=== PATIENT | female | born 1940 | race Caucasian/White ===

== ENCOUNTER → 2016-12-22 | Outpatient (CLI) | payer MEDICARE, OTHER | LOC: MW.CHRC 08:00 | CPT/HCPCS: 99214 ==

== ENCOUNTER → 2017-01-08 | Outpatient (CLI) | payer MEDICARE, OTHER | LOC: MW.CHIM 08:00 | CPT/HCPCS: 99204 ==

== ENCOUNTER → 2017-01-15 | Outpatient (CLI) | payer MEDICARE, OTHER | END | disposition home or self-care (01) | LOC: MW.CHOBGYN 15:58 | PROVIDERS: ATTEND Nurse Practitioner Women's Health | DX: R30.0 Dysuria (principal); L29.8 Other pruritus; N95.2 Postmenopausal atrophic vaginitis | CPT/HCPCS: 81001; 87480; 87510; 87660; G0463 ==

== ENCOUNTER → 2017-01-16 | Outpatient (CLI) | payer MEDICARE, OTHER ==
--- NOTE | 2017-02-12 20:02 | ECHO ---
The echocardiogram report can be seen in this patient's EMR in the Reports section. MYNOR
== END | disposition home or self-care (01) ==
LOC: MW.US 13:48
PROVIDERS: ATTEND Internal Medicine
DX: R00.2 Palpitations (principal); I08.1 Rheumatic disorders of both mitral and tricuspid valves
CPT/HCPCS: 93306

== ENCOUNTER → 2017-02-19 | Outpatient (CLI) | payer MEDICARE, OTHER | LOC: MW.CHIM 08:00 | PROVIDERS: ATTEND Internal Medicine | DX: R07.9 Chest pain, unspecified (principal); I47.1 Supraventricular tachycardia; I10 Essential (primary) hypertension; E78.5 Hyperlipidemia, unspecified | CPT/HCPCS: G0463 ==

== ENCOUNTER → 2017-03-27 | Outpatient (CLI) | payer MEDICARE, OTHER | LOC: MW.CHOBGYN 08:00 | PROVIDERS: ATTEND Nurse Practitioner Women's Health | DX: M19.049 Primary osteoarthritis, unspecified hand (principal); Z79.52 Long term (current) use of systemic steroids; M35.3 Polymyalgia rheumatica | CPT/HCPCS: 99214 ==

== ENCOUNTER → 2017-03-29 | Outpatient (CLI) | payer MEDICARE, OTHER ==
--- NOTE | 2017-04-02 13:39 | XA ---
Exam Date: 03/29/17 Patient's Age: 76 HEIGHT: 62.5 IN. WEIGHT: 186.0 lbs. INDICATIONS: Corticosteroids, currently menopausal, hypothyroid FRACTURES: TREATMENTS: Baby aspirin, levothyroxine, prednisone. ASSESSMENT: The BMD measured at Femur Neck Mean is 0.832 g/cm2 with a T-score of -1.5. This patient is considered osteopenic according to World Health Organization ( WHO) criteria. Bone density is between 10% and 25% below young normal. Fracture risk is moderate. Treatment is advised. The BMD measured at measured at Femur Troch Mean is 0.820 g/cm2 with a T-score of -0.3 is normal. Fracture risk is low. RESULTS: Site Region Age Classification T-Score BMD AP Spine L1-L4 77.9 Normal 0.8 1.296 g/cm2 Dual Femur Neck Mean 77.9 Osteopenia -1.5 0.832 g/cm2 Dual Femur Troch Mean 77.9 N/A -0.3 0.820 g/cm2 Dual Femur Total Mean 77.9 Normal -0.1 0.996 g/cm2 World Health Organization - Criteria for post-menopausal, women: Normal: T-Score at or above -1 SD Osteopenia: T-Score between -1 and -2.5 SD Osteoporosis: T-Score at or below -2.5 SD RECOMMENDATION: Pharmacologic treatment recommendations & Initiate pharmacologic treatment: - In those with hip or vertebral (clinical or asymptomatic) fractures - In those with T -scores <-2.5 at the femoral neck, total hip, or lumbar spine by DXA - In postmenopausal women and men age 50 and older with low bone mass (T-score between -1.0 and -2.5, osteopenia) at the femoral neck, total hip, or lumbar spine by DXA and a 10-year hip fracture probability >3 % or a 10-year major osteoporosis-related fracture probability >20% based on the [place]-adapted WHO absolute fracture risk model (Fracture Risk Algorithm (FRAX); www. NOF.org and www.shef.ac.uk/FRAX) FOLLOW UP: People with diagnosed cases of osteoporosis or at high risk for fracture should have regular bone mineral density tests. For patients eligible for Medicare, routine testing is allowed once every 2 years. The testing frequency can be increased to 1 year for patients who have rapidly progressing disease, those who are reviewing or discontinuing medial therapy to restore bone mass, or have additional risk factors. People with diagnosed cases of osteoporosis or osteopenia should be regularly tested for bone mineral density. For patient eligible for Medicare, routine testing is allowed once every 2 years. The testing frequency can be increased to 1 year for patients who have rapidly progressing disease, or for those who are receiving medial therapy to restore bone mass. [facility] -- MARIVEL Jones [phone] - FAX: [phone] MYNOR
== END ==
LOC: MW.DI 08:57
PROVIDERS: ATTEND Nurse Practitioner Women's Health
DX: Z51.81 Encounter for therapeutic drug level monitoring (principal); Z79.52 Long term (current) use of systemic steroids
CPT/HCPCS: 77080; 77080-26

== ENCOUNTER → 2017-04-10 | Outpatient (CLI) | payer MEDICARE, OTHER | LOC: MW.CHOBGYN 08:00 | PROVIDERS: ATTEND Nurse Practitioner Women's Health | DX: R53.83 Other fatigue (principal); M35.3 Polymyalgia rheumatica; M85.80 Other specified disorders of bone density and structure, unspecified site; Z79.52 Long term (current) use of systemic steroids | CPT/HCPCS: G0463 ==

== ENCOUNTER 2018-06-04 13:13 | Observation (INO) | payer MEDICARE, OTHER ==
--- NOTE | 2018-06-04 13:33 | EDM.PDOC ---
ED HPI GENERAL MEDICAL PROBLEM - General Chief Complaint: Respiratory Problem Stated Complaint: cough,chest pain Time Seen by Provider: 06/04/18 15:52 Source of Information: Reports: Patient History Limitations: Reports: No Limitations - History of Present Illness INITIAL COMMENTS - FREE TEXT/NARRATIVE: HISTORY AND PHYSICAL: History of present illness: [Echo is a 78-year-old female here for cough that started 3 days ago and chest pain that suddenly is worse today. She states that she thinks she has had a sinus infection for a few weeks and went to the dentist to make sure she wasn't having problems with a tooth instead but was assured her sinus pain wasn't related to her teeth. She states she does have a history of chronic sinus issues. However, she states that today she does feel more short of breath and the coughing has worsened to where she is now coughing up clear mucus. She also states she has been having worsening chest pain where it feels as if someone is sitting on her chest and the pain radiates to her back and both shoulders but does not radiate to jaw or left arm. She states she has had a recent PFT performed but is unsure of what the results were but does use an inhaler at home as needed. She denies fever, chills, ear pain, sore throat, eye drainage, syncope, diaphoresis, or lower extremity edema. Past medical history significant for hypertension, hypothyroidism, SVT, polymyaglia rheumatica. ] Review of systems: As per history of present illness and below otherwise all systems reviewed and negative. Past medical history: As per history of present illness and as reviewed below otherwise noncontributory. Surgical history: As per history of present illness and as reviewed below otherwise noncontributory. Social history: No reported history of drug or alcohol abuse. Family history: As per history of present illness and as reviewed below otherwise noncontributory. Physical exam: General: Patient is laying comfortably in exam room, patient breathing heavily but in no acute distress HEENT: Nasal turbinates were pale and boggy with clear drainage, mild pain to palpation of the right maxillary sinus. Atraumatic, normocephalic, pupils reactive, negative for conjunctival pallor or scleral icterus, mucous membranes moist, throat clear, neck supple, nontender, trachea midline. Lungs: Clear to auscultation, breath sounds equal bilaterally, chest nontender. Heart: S1S2, regular, negative for clicks, rubs. Abdomen: Soft, nondistended, nontender. Negative for masses or hepatosplenomegaly. Negative for costovertebral tenderness. Pelvis: Stable nontender. Genitourinary: Deferred. Rectal: Deferred. Extremities: Atraumatic, negative for cords or calf pain. Neurovascular unremarkable. Neuro: Awake, alert, oriented. Cranial nerves II through XII unremarkable. Cerebellum unremarkable. Motor and sensory unremarkable throughout. Exam nonfocal. Notes: Diagnostics: [CBC, CMP, D-dimer, Troponin CTA, CXR, EKG] Therapeutics: [Duoneb] Impression: [Chest pain] Plan: [Discussed with Dr. Howell, patient admitted for r/o ACS] Definitive disposition and diagnosis as appropriate pending reevaluation and review of above. chest pressure Pain Score (Numeric/FACES): 5 - Related Data Allergies Allergy/AdvReac Type Severity Reaction Status Date / Time No Known Allergies Allergy Verified 06/04/18 13:21 Home Meds: Home Meds Levothyroxine 75 mcg PO ACBREAKFAST 09/29/15 [History] Sertraline [Zoloft] 25 mg PO BEDTIME #30 tablet 12/18/16 [Rx] predniSONE [Prednisone] 1 mg PO DAILY 12/18/16 [History] Albuterol [Ventolin HFA] 1 - 2 puff INH Q4H PRN 06/04/18 [History] Hydrochlorothiazide 25 mg PO DAILY 06/04/18 [History] Potassium Chloride [Klor-Con 10] 10 meq PO DAILY 06/04/18 [History] Propranolol [Inderal] 20 mg PO TID 06/04/18 [History] Simvastatin [Zocor] 40 mg PO DAILY 06/04/18 [History] Past Medical History HEENT History: Reports: Allergic Rhinitis Other HEENT History: wears glasses Cardiovascular History: Reports: Arrhythmia, High Cholesterol Other Cardiovascular History: Occasional palpitations, 'do not know if it's nerves or what" Respiratory History: Reports: None Gastrointestinal History: Reports: None Other Gastrointestinal History: Indigestion, pain to back Genitourinary History: Reports: None Other Genitourinary History: Urgency at times, Recent discovery of abnormality on one of my kidneys [employer] History: Reports: Musculoskeletal History: Reports: None Neurological History: Reports: Other (See Below) Other Neuro History: Tremor Psychiatric History: Reports: None Other Psychiatric History: Get a little anxious on occasion Endocrine/Metabolic History: Reports: Hypothyroidism, Obesity/BMI 30+ Other Endocrine/Metabolic History: hypothyroidism Hematologic History: Reports: None Immunologic History: Reports: None Oncologic (Cancer) History: Reports: None Dermatologic History: Reports: None - Past Surgical History Head Surgeries/Procedures: Reports: None GI Surgical History: Reports: Cholecystectomy, Colonoscopy, Other (See Below) Other GI Surgeries/Procedures: bowel surgery Musculoskeletal Surgical History: Reports: Other (See Below) 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 ED EXAM, GENERAL - Physical Exam Exam: See Below (see dictation) Course - Vital Signs Last Recorded V/S: Last Vital Signs Temp 36.6 C 06/04/18 13:21 Pulse 78 06/04/18 15:26 Resp 18 06/04/18 15:26 BP 134/72 06/04/18 15:26 Pulse Ox 97 06/04/18 15:26 - Orders/Labs/Meds Orders: Active Orders 24 hr Category Date Time Status EKG Documentation Completion [RC] STAT Care 06/04/18 13:36 Active RT Aerosol Therapy [RC] ASDIRECTED Care 06/04/18 13:41 Active Sodium Chloride 0.9% [Normal Saline] 500 ml Med 06/04/18 14:45 Active IV STAT Sodium Chloride 0.9% [Saline Flush] Med 06/04/18 14:26 Active 10 ml FLUSH ASDIRECTED PRN Sodium Chloride 0.9% [Saline Flush] Med 06/04/18 14:26 Active 2.5 ml FLUSH ASDIRECTED PRN Saline Lock Insert [OM.PC] Stat Oth 06/04/18 14:26 Ordered Medication Orders Sodium Chloride (Normal Saline) 500 mls @ 999 mls/hr IV STAT MARYELLEN Last Admin: 06/04/18 15:01 Dose: 999 mls/hr Sodium Chloride (Saline Flush) 10 ml FLUSH ASDIRECTED PRN PRN Reason: Keep Vein Open Sodium Chloride (Saline Flush) 2.5 ml FLUSH ASDIRECTED PRN PRN Reason: Keep Vein Open Labs: Laboratory Tests 06/04/18 06/04/18 06/04/18 Range/Units 13:40 13:40 13:40 WBC 8.06 (4.0-11.0) K/uL RBC 4.11 L (4.30-5.90) M/uL Hgb 13.5 (12.0-16.0) g/dL Hct 40.3 (36.0-46.0) % MCV 98.1 H (80.0-98.0) fL MCH 32.8 H (27.0-32.0) pg MCHC 33.5 (31.0-37.0) g/dL RDW Std Deviation 44.0 (28.0-62.0) fl RDW Coeff of Tray 12 (11.0-15.0) % Plt Count 292 (150-400) K/uL MPV 9.60 (7.40-12.00) fL Neut % (Auto) 72.6 (48.0-80.0) % Lymph % (Auto) 12.5 L (16.0-40.0) % Scurry % (Auto) 5.7 (0.0-15.0) % Eos % (Auto) 9.1 H (0.0-7.0) % Baso % (Auto) 0.1 (0.0-1.5) % Neut # (Auto) 5.9 H (1.4-5.7) K/uL Lymph # (Auto) 1.0 (0.6-2.4) K/uL Scurry # (Auto) 0.5 (0.0-0.8) K/uL Eos # (Auto) 0.7 (0.0-0.7) K/uL Baso # (Auto) 0.0 (0.0-0.1) K/uL Nucleated RBC % 0.0 /100WBC Nucleated RBCs # 0 K/uL INR 0.96 D-Dimer, Quantitative (0.0-0.52) mg/LFEU Sodium 141 (136-145) mmol/L Potassium 3.2 L (3.5-5.1) mmol/L Chloride 104 (98-107) mmol/L Carbon Dioxide 25.4 (21.0-32.0) mmol/L BUN 20 H (7.0-18.0) mg/dL Creatinine 1.0 (0.6-1.0) mg/dL Est Cr Clr Drug Dosing 37.73 mL/min Estimated GFR (MDRD) 53.5 ml/min Glucose 152 H (74-106) mg/dL Calcium 9.0 (8.5-10.1) mg/dL Total Bilirubin 0.4 (0.2-1.0) mg/dL AST 17 (15-37) IU/L ALT 19 (14-63) IU/L Alkaline Phosphatase 83 (46-116) U/L Troponin I < 0.050 (0.000-0.056) ng/mL Total Protein 7.3 (6.4-8.2) g/dL Albumin 3.7 (3.4-5.0) g/dL Globulin 3.6 H (2.0-3.5) g/dL Albumin/Globulin Ratio 1.0 L (1.3-2.8) 06/04/18 Range/Units 13:40 WBC (4.0-11.0) K/uL RBC (4.30-5.90) M/uL Hgb (12.0-16.0) g/dL Hct (36.0-46.0) % MCV (80.0-98.0) fL MCH (27.0-32.0) pg MCHC (31.0-37.0) g/dL RDW Std Deviation (28.0-62.0) fl RDW Coeff of Tray (11.0-15.0) % Plt Count (150-400) K/uL MPV (7.40-12.00) fL Neut % (Auto) (48.0-80.0) % Lymph % (Auto) (16.0-40.0) % Scurry % (Auto) (0.0-15.0) % Eos % (Auto) (0.0-7.0) % Baso % (Auto) (0.0-1.5) % Neut # (Auto) (1.4-5.7) K/uL Lymph # (Auto) (0.6-2.4) K/uL Scurry # (Auto) (0.0-0.8) K/uL Eos # (Auto) (0.0-0.7) K/uL Baso # (Auto) (0.0-0.1) K/uL Nucleated RBC % /100WBC Nucleated RBCs # K/uL INR D-Dimer, Quantitative 1.41 H (0.0-0.52) mg/LFEU Sodium (136-145) mmol/L Potassium (3.5-5.1) mmol/L Chloride (98-107) mmol/L Carbon Dioxide (21.0-32.0) mmol/L BUN (7.0-18.0) mg/dL Creatinine (0.6-1.0) mg/dL Est Cr Clr Drug Dosing mL/min Estimated GFR (MDRD) ml/min Glucose (74-106) mg/dL Calcium (8.5-10.1) mg/dL Total Bilirubin (0.2-1.0) mg/dL AST (15-37) IU/L ALT (14-63) IU/L Alkaline Phosphatase (46-116) U/L Troponin I (0.000-0.056) ng/mL Total Protein (6.4-8.2) g/dL Albumin (3.4-5.0) g/dL Globulin (2.0-3.5) g/dL Albumin/Globulin Ratio (1.3-2.8) Meds: Medications Generic Name Dose Route Start Last Admin Trade Name Freq PRN Reason Stop Dose Admin Sodium Chloride 500 mls @ 999 mls/hr 06/04/18 14:45 06/04/18 15:01 Normal Saline IV 999 mls/hr STAT MARYELLEN Administration Sodium Chloride 10 ml 06/04/18 14:26 Saline Flush FLUSH ASDIRECTED PRN Keep Vein Open Sodium Chloride 2.5 ml 06/04/18 14:26 Saline Flush FLUSH ASDIRECTED PRN Keep Vein Open Discontinued Medications Generic Name Dose Route Start Last Admin Trade Name Freq PRN Reason Stop Dose Admin Albuterol/Ipratropium 3 ml 06/04/18 13:41 06/04/18 14:01 Duoneb 3.0-0.5 Mg/3 Ml NEB 06/04/18 13:42 3 ml ONETIME ONE Administration Sodium Chloride 1,000 mls @ 999 mls/hr 06/04/18 14:37 Normal Saline IV 06/04/18 15:37 STAT ONE Iopamidol 50 ml 06/04/18 14:46 06/04/18 14:53 Isovue Multipack-370 (76%) IVPUSH 06/04/18 14:47 50 ml ONETIME STA Administration Departure - Departure Time of Disposition: 15:51 Disposition: Refer to Observation Clinical Impression: Chest pain Qualifiers: Chest pain type: chest pain due to myocardial ischemia - Discharge Information Referrals: Licha Jacobo NP [Primary Care Provider] - Forms: ED Department Discharge - My Orders Last 24 Hours: My Active Orders 06/04/18 13:36 EKG Documentation Completion [RC] STAT 06/04/18 13:41 RT Aerosol Therapy [RC] ASDIRECTED 06/04/18 14:26 Sodium Chloride 0.9% [Saline Flush] 10 ml FLUSH ASDIRECTED PRN Sodium Chloride 0.9% [Saline Flush] 2.5 ml FLUSH ASDIRECTED PRN Saline Lock Insert [OM.PC] Stat 06/04/18 14:45 Sodium Chloride 0.9% [Normal Saline] 500 ml IV STAT - Assessment/Plan Last 24 Hours: My Active Orders 06/04/18 13:36 EKG Documentation Completion [RC] STAT 06/04/18 13:41 RT Aerosol Therapy [RC] ASDIRECTED 06/04/18 14:26 Sodium Chloride 0.9% [Saline Flush] 10 ml FLUSH ASDIRECTED PRN Sodium Chloride 0.9% [Saline Flush] 2.5 ml FLUSH ASDIRECTED PRN Saline Lock Insert [OM.PC] Stat 06/04/18 14:45 Sodium Chloride 0.9% [Normal Saline] 500 ml IV STAT
[2018-06-04] MEDS ORDERED: Albuterol/Ipratropium 3.0-0.5 MG/3 ML Neb Soln NEB ONE (13:41)
[2018-06-04] MEDS ORDERED: Sodium Chloride 0.9% 2.5 ML Syringe FLUSH PRN (14:26)
[2018-06-04] MEDS ORDERED: Sodium Chloride 0.9% 10 ML Syringe FLUSH PRN (14:26)
[2018-06-04 14:32] LABS: CHLORIDE,CL 104 mmol/L (98-107); SODIUM,NA 141 mmol/L (136-145)
--- NOTE | 2018-06-04 14:35 | CR ---
EXAMINATION: Two-view chest (PA and Lateral views). HISTORY: Shortness of breath. FINDINGS: The trachea is midline. The cardiomediastinal silhouette is within normal limits. No pulmonary infilt rates, effusions or pneumothorax. Osseous structures appear unremarkable. IMPRESSION: No acute cardiopulmonary process.
[2018-06-04] MEDS ORDERED: Sodium Chloride 0.9% 1,000 ML IV ONE (14:37)
[2018-06-04] MEDS ORDERED: Sodium Chloride 0.9% 500 ML IV SCH (14:45)
[2018-06-04] MEDS ORDERED: Iopamidol 755 MG/ML 200 ML Multipack Bottle IVPUSH STA (14:46)
--- NOTE | 2018-06-04 15:21 | CT ---
EXAMINATION: CTA chest HISTORY: Elevated d-dimer COMPARISON: None TECHNIQUE: Axial CT images obtained through the chest following the administration of 50 mL of Isovue -370 in the right antecubital fossa. Coronal and sagittal reconstructions obtained. FINDINGS: The lungs are clear without focal consolidation. No pleural effusion or pneumothorax. The h eart is normal in size without pericardial effusion. The main and central pulmonary arteries are ibarra nt. The thoracic aorta is normal in caliber. There is no mediastinal, hilar, or axillary lymphadenopa thy. Central airways are clear. The visualized images of the upper abdomen appear unremarkable. Osseous structures are unremarkable. IMPRESSION: 1. No acute cardiopulmonary findings.
[2018-06-04] MEDS ORDERED: Ondansetron 4 MG/2 ML SDV IVPUSH ONE (15:54)
[2018-06-04] MEDS ORDERED: Albuterol HFA 18 Gm Inhaler INH PRN (19:11)
--- NOTE | 2018-06-04 19:19 | PCM.HP ---
H&P History of Present Illness - General Date of Service: 06/05/18 Admit Problem/Dx: Admission Diagnosis/Problem Admission Diagnosis/Problem Chest pain - History of Present Illness Initial Comments - Free Text/Narative: 78 yo female who presents with three day history of cough, sinus congestion, post nasal drip and chest pressure. She reports the chest pressure is intermittent and not associated with shortness of breath, diaphoresis or lightheadedness. In the ED her EKG and cardiac enzymes did not show any signs of ischemia. She had a normal CT angio of chest. chest pressure Pain Score (Numeric/FACES): 5 - Related Data Allergies/Adverse Reactions: Allergies Allergy/AdvReac Type Severity Reaction Status Date / Time No Known Allergies Allergy Verified 06/04/18 13:21 Home Medications: Home Meds Levothyroxine 75 mcg PO ACBREAKFAST 09/29/15 [History] Sertraline [Zoloft] 25 mg PO BEDTIME #30 tablet 12/18/16 [Rx] predniSONE [Prednisone] 1 mg PO DAILY 12/18/16 [History] Albuterol [Ventolin HFA] 1 - 2 puff INH Q4H PRN 06/04/18 [History] Hydrochlorothiazide 25 mg PO DAILY 06/04/18 [History] Potassium Chloride [Klor-Con 10] 10 meq PO DAILY 06/04/18 [History] Propranolol [Inderal] 20 mg PO TID 06/04/18 [History] Simvastatin [Zocor] 40 mg PO DAILY 06/04/18 [History] Fluticasone Propionate [Flonase] 0 gm NASBOTH DAILY bottle 06/05/18 [Rx] Past Medical History HEENT History: Reports: Allergic Rhinitis Other HEENT History: wears glasses Cardiovascular History: Reports: Arrhythmia, High Cholesterol Other Cardiovascular History: Occasional palpitations, 'do not know if it's nerves or what" Respiratory History: Reports: None Gastrointestinal History: Reports: None Other Gastrointestinal History: Indigestion, pain to back Genitourinary History: Reports: None Other Genitourinary History: Urgency at times, Recent discovery of abnormality on one of my kidneys 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: Musculoskeletal History: Reports: None Neurological History: Reports: Other (See Below) Other Neuro History: Tremor Psychiatric History: Reports: None Other Psychiatric History: Get a little anxious on occasion Endocrine/Metabolic History: Reports: Hypothyroidism, Obesity/BMI 30+ Other Endocrine/Metabolic History: hypothyroidism Hematologic History: Reports: None Immunologic History: Reports: None Oncologic (Cancer) History: Reports: None Dermatologic History: Reports: None - Past Surgical History Head Surgeries/Procedures: Reports: None GI Surgical History: Reports: Cholecystectomy, Colonoscopy, Other (See Below) Other GI Surgeries/Procedures: bowel surgery Musculoskeletal Surgical History: Reports: Other (See Below) 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 Exam - Vital Signs Vital Signs: Last Vital Signs Temp 35.7 C 06/04/18 18:40 Pulse 66 06/04/18 18:40 Resp 18 06/04/18 18:40 BP 129/70 06/04/18 18:40 Pulse Ox 92 L 06/04/18 18:40 Weight: 186.7 kg - Exam General: Alert, Oriented HEENT: Mucosa Moist & [place], Posterior Pharynx Clear Lungs: Clear to Auscultation, Normal Respiratory Effort Cardiovascular: Regular Rate, Regular Rhythm GI/Abdominal Exam: Normal Bowel Sounds, Soft, Non-Tender Extremities: Normal Range of Motion, Non-Tender, No Pedal Edema Skin: Warm, Dry, Intact Neurological: No: Focal Deficit - Patient Data Lab Results Last 24 hrs: Laboratory Results - last 24 hr 06/04/18 06/04/18 06/04/18 Range/Units 13:40 13:40 13:40 WBC 8.06 (4.0-11.0) K/uL RBC 4.11 L (4.30-5.90) M/uL Hgb 13.5 (12.0-16.0) g/dL Hct 40.3 (36.0-46.0) % MCV 98.1 H (80.0-98.0) fL MCH 32.8 H (27.0-32.0) pg MCHC 33.5 (31.0-37.0) g/dL RDW Std Deviation 44.0 (28.0-62.0) fl RDW Coeff of Tray 12 (11.0-15.0) % Plt Count 292 (150-400) K/uL MPV 9.60 (7.40-12.00) fL Neut % (Auto) 72.6 (48.0-80.0) % Lymph % (Auto) 12.5 L (16.0-40.0) % [place] % (Auto) 5.7 (0.0-15.0) % Eos % (Auto) 9.1 H (0.0-7.0) % Baso % (Auto) 0.1 (0.0-1.5) % Neut # (Auto) 5.9 H (1.4-5.7) K/uL Lymph # (Auto) 1.0 (0.6-2.4) K/uL [place] # (Auto) 0.5 (0.0-0.8) K/uL Eos # (Auto) 0.7 (0.0-0.7) K/uL Baso # (Auto) 0.0 (0.0-0.1) K/uL Nucleated RBC % 0.0 /100WBC Nucleated RBCs # 0 K/uL INR 0.96 D-Dimer, Quantitative (0.0-0.52) mg/LFEU Sodium 141 (136-145) mmol/L Potassium 3.2 L (3.5-5.1) mmol/L Chloride 104 (98-107) mmol/L Carbon Dioxide 25.4 (21.0-32.0) mmol/L BUN 20 H (7.0-18.0) mg/dL Creatinine 1.0 (0.6-1.0) mg/dL Est Cr Clr Drug Dosing 37.73 mL/min Estimated GFR (MDRD) 53.5 ml/min Glucose 152 H (74-106) mg/dL Calcium 9.0 (8.5-10.1) mg/dL Total Bilirubin 0.4 (0.2-1.0) mg/dL AST 17 (15-37) IU/L ALT 19 (14-63) IU/L Alkaline Phosphatase 83 (46-116) U/L Troponin I < 0.050 (0.000-0.056) ng/mL Total Protein 7.3 (6.4-8.2) g/dL Albumin 3.7 (3.4-5.0) g/dL Globulin 3.6 H (2.0-3.5) g/dL Albumin/Globulin Ratio 1.0 L (1.3-2.8) 06/04/18 Range/Units 13:40 WBC (4.0-11.0) K/uL RBC (4.30-5.90) M/uL Hgb (12.0-16.0) g/dL Hct (36.0-46.0) % MCV (80.0-98.0) fL MCH (27.0-32.0) pg MCHC (31.0-37.0) g/dL RDW Std Deviation (28.0-62.0) fl RDW Coeff of Tray (11.0-15.0) % Plt Count (150-400) K/uL MPV (7.40-12.00) fL Neut % (Auto) (48.0-80.0) % Lymph % (Auto) (16.0-40.0) % [place] % (Auto) (0.0-15.0) % Eos % (Auto) (0.0-7.0) % Baso % (Auto) (0.0-1.5) % Neut # (Auto) (1.4-5.7) K/uL Lymph # (Auto) (0.6-2.4) K/uL [place] # (Auto) (0.0-0.8) K/uL Eos # (Auto) (0.0-0.7) K/uL Baso # (Auto) (0.0-0.1) K/uL Nucleated RBC % /100WBC Nucleated RBCs # K/uL INR D-Dimer, Quantitative 1.41 H (0.0-0.52) mg/LFEU Sodium (136-145) mmol/L Potassium (3.5-5.1) mmol/L Chloride (98-107) mmol/L Carbon Dioxide (21.0-32.0) mmol/L BUN (7.0-18.0) mg/dL Creatinine (0.6-1.0) mg/dL Est Cr Clr Drug Dosing mL/min Estimated GFR (MDRD) ml/min Glucose (74-106) mg/dL Calcium (8.5-10.1) mg/dL Total Bilirubin (0.2-1.0) mg/dL AST (15-37) IU/L ALT (14-63) IU/L Alkaline Phosphatase (46-116) U/L Troponin I (0.000-0.056) ng/mL Total Protein (6.4-8.2) g/dL Albumin (3.4-5.0) g/dL Globulin (2.0-3.5) g/dL Albumin/Globulin Ratio (1.3-2.8) Result Diagrams: 06/04/18 13:40 06/04/18 13:40 Problem List Initiated/Reviewed/Updated: Yes Orders Last 24hrs: Active Orders 24 hr Category Date Time Status Admission Status [Patient Status] [ADT] Stat ADT 06/04/18 15:53 Active EKG Documentation Completion [RC] STAT Care 06/04/18 13:36 Active RT Aerosol Therapy [RC] ASDIRECTED Care 06/04/18 13:41 Active RT Aerosol Therapy [RC] ASDIRECTED Care 06/04/18 19:10 Active TROPONIN I [CHEM] Q6H Lab 06/04/18 20:00 Ordered TROPONIN I [CHEM] Q6H Lab 06/05/18 02:00 Ordered Albuterol [Ventolin HFA] Med 06/04/18 19:11 Ordered DOSE gm INH Q4H PRN Albuterol/Ipratropium [DuoNeb 3.0-0.5 MG/3 ML] Med 06/05/18 00:00 Ordered 3 ml NEB Q6HRRT Fluticasone Propionate [Flonase] Med 06/04/18 19:15 Ordered 1 gm NASBOTH DAILY Hydrochlorothiazide Med 06/05/18 09:00 Ordered 25 mg PO DAILY Levothyroxine Med 06/05/18 07:30 Ordered 75 mcg PO ACBREAKFAST Propranolol [Inderal] Med 06/04/18 22:00 Ordered 20 mg PO TID Sertraline [Zoloft] Med 06/04/18 21:00 Ordered 25 mg PO BEDTIME Simvastatin [Zocor] Med 06/05/18 09:00 Ordered 40 mg PO DAILY Sodium Chloride 0.9% [Normal Saline] 500 ml Med 06/04/18 14:45 Active IV STAT Sodium Chloride 0.9% [Saline Flush] Med 06/04/18 14:26 Active 10 ml FLUSH ASDIRECTED PRN Sodium Chloride 0.9% [Saline Flush] Med 06/04/18 14:26 Active 2.5 ml FLUSH ASDIRECTED PRN predniSONE Med 06/05/18 09:00 Ordered 1 mg PO DAILY Saline Lock Insert [OM.PC] Stat Oth 06/04/18 14:26 Ordered Medication Orders Albuterol (Ventolin Hfa) gm INH Q4H PRN PRN Reason: Wheezing Albuterol/Ipratropium (Duoneb 3.0-0.5 Mg/3 Ml) 3 ml NEB Q6HRRT MARYELLEN Fluticasone Propionate (Flonase) 1 gm NASBOTH DAILY MARYELLEN Hydrochlorothiazide (Hydrochlorothiazide) 25 mg PO DAILY MARYELLEN Sodium Chloride (Normal Saline) 500 mls @ 999 mls/hr IV STAT MARYELLEN Last Admin: 06/04/18 15:01 Dose: 999 mls/hr Levothyroxine Sodium (Levothyroxine) 75 mcg PO ACBREAKFAST MARYELLEN Prednisone (Prednisone) 1 mg PO DAILY MARYELLEN Propranolol HCl (Inderal) 20 mg PO TID MARYELLEN Sertraline HCl (Zoloft) 25 mg PO BEDTIME MARYELLEN Simvastatin (Zocor) 40 mg PO DAILY MARYELLEN Sodium Chloride (Saline Flush) 10 ml FLUSH ASDIRECTED PRN PRN Reason: Keep Vein Open Sodium Chloride (Saline Flush) 2.5 ml FLUSH ASDIRECTED PRN PRN Reason: Keep Vein Open Assessment/Plan Comment:: 78 yo female admitted with chest pain. She was monitored overnight and ruled out for acute coronary syndrome with serial negative cardiac enzymes. For her acute bronchitis, she was treated with duonebs, and flonase with improvement in her symptoms. She was discharged home to have follow up with [facility].
[2018-06-04] MEDS ORDERED: Sertraline 25 MG Tab PO SCH (21:00)
[2018-06-04] MEDS: Fluticasone Propionate Nasal Spray 16 GM Bottle NASBOTH SCH (21:18)
[2018-06-04] MEDS: Propranolol 20 MG Tab PO SCH (21:18)
[2018-06-04] MEDS ORDERED: Acetaminophen 325 MG Tab PO PRN (22:12)
[2018-06-05] MEDS: Albuterol/Ipratropium 3.0-0.5 MG/3 ML Neb Soln NEB SCH ×2 (00:47→06:22)
[2018-06-05] MEDS: Propranolol 20 MG Tab PO SCH (06:34)
[2018-06-05] MEDS ORDERED: Albuterol 8 GM Inhaler INH PRN (07:30)
[2018-06-05] MEDS ORDERED: Levothyroxine 75 MCG Tab PO SCH (07:30)
[2018-06-05 07:43] VITALS: BP 106/58
[2018-06-05] MEDS: Fluticasone Propionate Nasal Spray 16 GM Bottle NASBOTH SCH (08:33)
[2018-06-05] MEDS ORDERED: predniSONE 1 MG Tab PO SCH (09:00)
[2018-06-05] MEDS ORDERED: Simvastatin 40 MG Tab PO SCH (09:00)
[2018-06-05] MEDS ORDERED: Hydrochlorothiazide 25 MG Tab PO SCH (09:00)
== END 2018-06-05 09:40 | disposition home or self-care (01) ==
LOC: MW.ED 13:13 → MW.MS 16:05
PROVIDERS: ADMIT Internal Medicine; ATTEND Internal Medicine
DX: R07.9 Chest pain, unspecified (principal); J20.9 Acute bronchitis, unspecified; I10 Essential (primary) hypertension; E66.9 Obesity, unspecified; E78.00 Pure hypercholesterolemia, unspecified; E03.9 Hypothyroidism, unspecified; I49.9 Cardiac arrhythmia, unspecified; Z79.899 Other long term (current) drug therapy
CPT/HCPCS: 36415; 71046; 71275; 80053; 84484; 85025; 85379; 85610; 93005; 94640; 96374; 99285; A9270; G0378; J2405; J7040; J7620; Q9967

== ENCOUNTER 2019-08-11 09:31 | Observation (INO) | payer MEDICARE, OTHER ==
[2019-08-11] MEDS ORDERED: Sodium Chloride 0.9% 1,000 ML IV ONE (09:36)
[2019-08-11] MEDS ORDERED: Ondansetron 4 MG/2 ML SDV IVPUSH ONE (09:37)
--- NOTE | 2019-08-11 09:40 | EDM.PDOC ---
ED HPI GENERAL MEDICAL PROBLEM - General Chief Complaint: General Stated Complaint: EMS ARRIVAL/ DIZZINESS,NAUSEA Time Seen by Provider: 08/11/19 09:36 Source of Information: Reports: Patient History Limitations: Reports: No Limitations - History of Present Illness INITIAL COMMENTS - FREE TEXT/NARRATIVE: HISTORY AND PHYSICAL: History of present illness: Patient is an 79-year-old female who presents to the emergency room by EMS with complaints of dizziness, nausea and diarrhea 3 days. Patient does live in an assisted living facility and does have persons check on her routinely. EMS was called today as she felt weak while on the toilet and stated she was too dizzy to walk. States dizziness is bothersome with head movement or ambulation. States she is not dizzy with resting or lying still. Recently she has been treated for low vitamin D, states the supplements she's been taking has been causing some of her diarrhea. Patient denies any fever, chills, headache, change in vision, syncope or near syncope. Denies any chest pain, back pain, shortness of breath or cough. Denies any abdominal pain, constipation or dysuria. Has not noted any blood in urine or stool. Patient has been eating and drinking appropriately. PMH of arrhythmia and hypothyroidism. Review of systems: As per history of present illness and below otherwise all systems reviewed and negative. Past medical history: As per history of present illness and as reviewed below otherwise noncontributory. Surgical history: As per history of present illness and as reviewed below otherwise noncontributory. Social history: See social history for further information Family history: As per history of present illness and as reviewed below otherwise noncontributory. Physical exam: General: Well-developed and well-nourished 79-year-old female. Alert and oriented. Prefers to rest with her eyes closed during physical examination. HEENT: Atraumatic, normocephalic, pupils equal and reactive bilaterally, negative for conjunctival pallor or scleral icterus, mucous membranes moist, TMs normal bilaterally, throat clear, neck supple, nontender, trachea midline. No drooling or trismus noted. No meningeal signs. No hot potato voice noted. Lungs: Clear to auscultation, breath sounds equal bilaterally, chest nontender. Heart: S1S2, regular rate and rhythm without overt murmur Abdomen: Soft, nondistended, nontender. Negative for masses or hepatosplenomegaly. Negative for costovertebral tenderness. Pelvis: Stable nontender. Skin: Intact, warm, dry. No lesions or rashes noted. Extremities: Atraumatic, moves all extremities per self without difficulty or deficits, negative for cords or calf pain. Neurovascular unremarkable. Neuro: Awake, alert, oriented. Cranial nerves II through XII unremarkable. Cerebellum unremarkable. Motor and sensory unremarkable throughout. Exam nonfocal. Notes: Imaging is unremarkable. Lab work does show a slight UTI. Patient states she does feel somewhat better after the IV fluids. Patient is bradycardic with a heart rate of 49 and 53, previous EKGs show normal sinus rhythm with a rate of 70's. She states she does have a history of a low pulse rate but does not recall how "low around". Dr. Howell was consulted on this case. Will admit patient to telemetry. Patient and family members at bedside are agreeable to plan of care. Diagnostics: CBC, CMP, UA, troponin, EKG, head CT, one view chest Therapeutics: NS 100 MLS/hour, Rocephin Impression: Dehydration UTI Dizziness Bradycardia Plan: Observation admission with telemetry Definitive disposition and diagnosis as appropriate pending reevaluation and review of above. - Related Data Allergies Allergy/AdvReac Type Severity Reaction Status Date / Time No Known Allergies Allergy Verified 08/11/19 09:40 Home Meds: Home Meds Levothyroxine 75 mcg PO ACBREAKFAST 09/29/15 [History] Sertraline [Zoloft] 25 mg PO BEDTIME #30 tablet 12/18/16 [Rx] predniSONE [Prednisone] 1 mg PO DAILY 12/18/16 [History] Albuterol [Ventolin HFA] 1 - 2 puff INH Q4H PRN 06/04/18 [History] Potassium Chloride [Klor-Con 10] 10 meq PO DAILY 06/04/18 [History] Propranolol [Inderal] 20 mg PO TID 06/04/18 [History] Simvastatin [Zocor] 40 mg PO DAILY 06/04/18 [History] hydroCHLOROthiazide [Hydrochlorothiazide] 25 mg PO DAILY 06/04/18 [History] Fluticasone Propionate [Flonase] 0 gm NASBOTH DAILY bottle 06/05/18 [Rx] Past Medical History HEENT History: Reports: Allergic Rhinitis Other HEENT History: wears glasses Cardiovascular History: Reports: Arrhythmia, High Cholesterol Other Cardiovascular History: Occasional palpitations, 'do not know if it's nerves or what" Respiratory History: Reports: None Gastrointestinal History: Reports: None Other Gastrointestinal History: Indigestion, pain to back Genitourinary History: Reports: None Other Genitourinary History: Urgency at times, Recent discovery of abnormality on one of my kidneys 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: Musculoskeletal History: Reports: None Neurological History: Reports: Other (See Below) Other Neuro History: Tremor Psychiatric History: Reports: None Other Psychiatric History: Get a little anxious on occasion Endocrine/Metabolic History: Reports: Hypothyroidism, Obesity/BMI 30+ Other Endocrine/Metabolic History: hypothyroidism Hematologic History: Reports: None Immunologic History: Reports: None Oncologic (Cancer) History: Reports: None Dermatologic History: Reports: None - Past Surgical History Head Surgeries/Procedures: Reports: None GI Surgical History: Reports: Cholecystectomy, Colonoscopy, Other (See Below) Other GI Surgeries/Procedures: bowel surgery Musculoskeletal Surgical History: Reports: Other (See Below) 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 ED EXAM, GENERAL - Physical Exam Exam: See Below (See dictation) Course - Vital Signs Last Recorded V/S: Last Vital Signs Temp 95.3 F L 08/11/19 09:37 Pulse 51 L 08/11/19 11:36 Resp 18 08/11/19 11:36 BP 104/59 L 08/11/19 11:36 Pulse Ox 97 08/11/19 11:36 - Orders/Labs/Meds Orders: Active Orders 24 hr Category Date Time Status EKG Documentation Completion [RC] STAT Care 08/11/19 09:36 Active CULTURE URINE [RM] Stat Lab 08/11/19 11:49 Received Sodium Chloride 0.9% [Normal Saline] 1,000 ml Med 08/11/19 09:36 Active IV STAT Medication Orders Sodium Chloride (Normal Saline) 1,000 mls @ 100 mls/hr IV STAT ONE Stop: 08/11/19 19:35 Last Admin: 08/11/19 09:44 Dose: 100 mls/hr Labs: Laboratory Tests 08/11/19 08/11/19 08/11/19 Range/Units 09:57 09:57 11:49 WBC 7.54 (4.0-11.0) K/uL RBC 3.88 L (4.30-5.90) M/uL Hgb 12.9 (12.0-16.0) g/dL Hct 40.2 (36.0-46.0) % MCV 103.6 H (80.0-98.0) fL MCH 33.2 H (27.0-32.0) pg MCHC 32.1 (31.0-37.0) g/dL RDW Std Deviation 48.2 (28.0-62.0) fl RDW Coeff of Tray 13 (11.0-15.0) % Plt Count 261 (150-400) K/uL MPV 9.40 (7.40-12.00) fL Neut % (Auto) 64.3 (48.0-80.0) % Lymph % (Auto) 24.0 (16.0-40.0) % [place] % (Auto) 8.9 (0.0-15.0) % Eos % (Auto) 2.5 (0.0-7.0) % Baso % (Auto) 0.3 (0.0-1.5) % Neut # (Auto) 4.9 (1.4-5.7) K/uL Lymph # (Auto) 1.8 (0.6-2.4) K/uL [place] # (Auto) 0.7 (0.0-0.8) K/uL Eos # (Auto) 0.2 (0.0-0.7) K/uL Baso # (Auto) 0.0 (0.0-0.1) K/uL Nucleated RBC % 0.0 /100WBC Nucleated RBCs # 0 K/uL Sodium 142 (136-145) mmol/L Potassium 3.3 L (3.5-5.1) mmol/L Chloride 105 (98-107) mmol/L Carbon Dioxide 25.8 (21.0-32.0) mmol/L BUN 24 H (7.0-18.0) mg/dL Creatinine 1.0 (0.6-1.0) mg/dL Est Cr Clr Drug Dosing 35.49 mL/min Estimated GFR (MDRD) 53.3 ml/min Glucose 102 (74-106) mg/dL Calcium 9.3 (8.5-10.1) mg/dL Total Bilirubin 0.6 (0.2-1.0) mg/dL AST 12 L (15-37) IU/L ALT 14 (14-63) IU/L Alkaline Phosphatase 60 (46-116) U/L Troponin I < 0.050 (0.000-0.056) ng/mL Total Protein 6.7 (6.4-8.2) g/dL Albumin 3.5 (3.4-5.0) g/dL Globulin 3.2 (2.6-4.0) g/dL Albumin/Globulin Ratio 1.1 (0.9-1.6) Urine Color YELLOW Urine Appearance SLT CLOUDY Urine pH 7.0 (5.0-8.0) Ur Specific [place] 1.020 (1.001-1.035) Urine Protein NEGATIVE (NEGATIVE) mg/dL Urine Glucose (UA) NEGATIVE (NEGATIVE) mg/dL Urine Ketones NEGATIVE (NEGATIVE) mg/dL Urine Occult Blood NEGATIVE (NEGATIVE) Urine Nitrite NEGATIVE (NEGATIVE) Urine Bilirubin NEGATIVE (NEGATIVE) Urine Urobilinogen 1.0 (<2.0) EU/dL Ur Leukocyte Esterase SMALL H (NEGATIVE) Urine RBC RARE (0-2/HPF) Urine WBC 2-4 (0-5/HPF) Ur Epithelial Cells MODERATE (NONE-FEW) Amorphous Sediment LIGHT (NEGATIVE) Urine Bacteria 1+ H (NEGATIVE) Hyaline Casts 0-1 (0-2/LPF) Urine Mucus MODERATE (NONE-MOD) Meds: Medications Generic Name Dose Route Start Last Admin Trade Name Freq PRN Reason Stop Dose Admin Sodium Chloride 1,000 mls @ 100 mls/hr 08/11/19 09:36 08/11/19 09:44 Normal Saline IV 08/11/19 19:35 100 mls/hr STAT ONE Administration Discontinued Medications Generic Name Dose Route Start Last Admin Trade Name Freq PRN Reason Stop Dose Admin Ondansetron HCl 4 mg 08/11/19 09:37 08/11/19 11:42 Zofran IVPUSH 08/11/19 09:38 Not Given ONETIME ONE Departure - Departure Time of Disposition: 12:21 Disposition: Refer to Observation Clinical Impression: Dehydration, Dizziness, Bradycardia UTI (urinary tract infection) Qualifiers: Urinary tract infection type: acute cystitis Hematuria presence: without hematuria Qualified Code(s): N30.00 - Acute cystitis without hematuria - Discharge Information Referrals: PCP,Unknown [Primary Care Provider] - Forms: ED Department Discharge - My Orders Last 24 Hours: My Active Orders 08/11/19 09:36 EKG Documentation Completion [RC] STAT Sodium Chloride 0.9% [Normal Saline] 1,000 ml IV STAT 08/11/19 11:49 CULTURE URINE [RM] Stat - Assessment/Plan Last 24 Hours: My Active Orders 08/11/19 09:36 EKG Documentation Completion [RC] STAT Sodium Chloride 0.9% [Normal Saline] 1,000 ml IV STAT 08/11/19 11:49 CULTURE URINE [RM] Stat
[2019-08-11 10:32] LABS: BLOOD UREA NITROGEN,BUN 24 mg/dL (7.0-18.0); CARBON DIOXIDE,CO2 25.8 mmol/L (21.0-32.0); CHLORIDE,CL 105 mmol/L (98-107); GLUCOSE RANDOM 102 mg/dL (74-106); POTASSIUM,K 3.3 mmol/L (3.5-5.1); SODIUM,NA 142 mmol/L (136-145)
--- NOTE | 2019-08-11 10:57 | CT ---
HISTORY: Dizziness. TECHNIQUE: Noncontrast head CT. COMPARISON: No prior. FINDINGS: There is no acute intracranial hemorrhage or acute ischemic infarct. Periventricular white matter low attenuation on the right is nonspecific but may reflect sequelae of chronic small vessel ischemic changes. There is no mass effect or midline shift. No hydrocephalus. No extra-axial collection or hematoma. No acute loss of matias-white differentiation. The mastoid air cells are clear. Paranasal sinuses are clear. There is no acute skull fracture. IMPRESSION: 1. No acute intracranial disease. 2. Periventricular white matter low attenuation on the right is nonspecific but may reflect sequelae of chronic small vessel ischemic changes in a patient this age. Dictated by George Abebe MD @ 08/11/2019 10:56:20 AM Please note that all CT scans at this facility use dose modulation, iterative reconstruction, and/or weight-based dosing when appropriate to reduce radiation dose to as low as reasonably achievable. Dictated by: George Abebe MD @ 08/11/2019 10:56:25 (Electronically Signed)
--- NOTE | 2019-08-11 11:08 | CR ---
HISTORY: Dizziness. TECHNIQUE: One view of the chest. COMPARISON: 06/04/2018. FINDINGS: Cardiac size within normal limits. There is no consolidation or pulmonary edema. No pneumothorax or pleural effusion. No acute bony abnormality. IMPRESSION: No acute disease. Dictated by George Abebe MD @ 08/11/2019 11:06:12 AM Dictated by: George Abebe MD @ 08/11/2019 11:06:18 (Electronically Signed)
[2019-08-11] MEDS ORDERED: cefTRIAXone 1 GM in Premix Bag 1 BAG IV ONE (12:23)
--- NOTE | 2019-08-11 13:18 | PCM.HP.2 ---
H&P History of Present Illness - General Date of Service: 08/11/19 Admit Problem/Dx: Admission Diagnosis/Problem Admission Diagnosis/Problem UTI (urinary tract infection), uncomplicated - History of Present Illness Initial Comments - Free Text/Narative: The patient is a 79 year old female who presents today with 1 month hx of diarrhea and one day history of "weird episode". The weird episode happened this morning, she got up from bed, felt like the room was spinning, became very hot, went to the bathroom and fell to her knees. Denied head trauma or loss of consciousness. Denies any fever/chills, chest pain, shortness of breath, nausea /vomiting, or abdominal pain. Does report nonbloody, watery diarrhea for the past month 3-4 times a day. No recent antibiotic use, has eaten out in the community ([employer] and [employer]) also she lives at [facility], they prepare her meal. She reports several of the other residents have also developed diarrhea. She also endorses increased frequency and burning with urination. In the ER, work up showed no white count, no anemia, slight hypokalemia of 3.3, negative troponin. UA was positive for leuk esterase, bacteria, and WBC. Head CT showed no acute intracranial process but showed chronic small vessel ischemia disease. CXR showed no acute cardiopulmonary process. EKG showed bradycardia with HR of [address] changes. Patient is on propranolol 20 mg after episode of SVT last year that required hospitalization. She was also hypotensive in the ER with BP of 99/54 that slightly improved to 104/59 with 1 L of IVF. In the ER she received a dose of Rocephin. - Related Data Allergies/Adverse Reactions: Allergies Allergy/AdvReac Type Severity Reaction Status Date / Time No Known Allergies Allergy Verified 08/11/19 13:21 Home Medications: Home Meds Levothyroxine 75 mcg PO ACBREAKFAST 09/29/15 [History] Sertraline [Zoloft] 25 mg PO BEDTIME #30 tablet 12/18/16 [Rx] predniSONE [Prednisone] 1 mg PO DAILY 12/18/16 [History] Albuterol [Ventolin HFA] 1 - 2 puff INH Q4H PRN 06/04/18 [History] Potassium Chloride [Klor-Con 10] 10 meq PO DAILY 06/04/18 [History] Propranolol [Inderal] 20 mg PO TID 06/04/18 [History] Simvastatin [Zocor] 40 mg PO DAILY 06/04/18 [History] hydroCHLOROthiazide [Hydrochlorothiazide] 25 mg PO DAILY 06/04/18 [History] Fluticasone Propionate [Flonase] 0 gm NASBOTH DAILY bottle 06/05/18 [Rx] Past Medical History HEENT History: Reports: Allergic Rhinitis Other HEENT History: wears glasses Cardiovascular History: Reports: Arrhythmia, High Cholesterol Other Cardiovascular History: Occasional palpitations, 'do not know if it's nerves or what" Respiratory History: Reports: None Gastrointestinal History: Reports: None Other Gastrointestinal History: Indigestion, pain to back Genitourinary History: Reports: None Other Genitourinary History: Urgency at times, Recent discovery of abnormality on one of my kidneys [employer] History: Reports: Musculoskeletal History: Reports: None Neurological History: Reports: Other (See Below) Other Neuro History: Tremor Psychiatric History: Reports: None Other Psychiatric History: Get a little anxious on occasion Endocrine/Metabolic History: Reports: Hypothyroidism, Obesity/BMI 30+ Other Endocrine/Metabolic History: hypothyroidism Hematologic History: Reports: None Immunologic History: Reports: None Oncologic (Cancer) History: Reports: None Dermatologic History: Reports: None - Past Surgical History Head Surgeries/Procedures: Reports: None GI Surgical History: Reports: Cholecystectomy, Colonoscopy, Other (See Below) Other GI Surgeries/Procedures: bowel surgery Musculoskeletal Surgical History: Reports: Other (See Below) 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 Denies: Fever, Chills HEENT: Reports: No Symptoms Pulmonary: Reports: No Symptoms Cardiovascular: Reports: No Symptoms Gastrointestinal: Reports: Diarrhea. Denies: Abdominal Pain, Nausea, Vomiting Genitourinary: Reports: Frequency, Burning Musculoskeletal: Reports: No Symptoms Skin: Reports: No Symptoms Psychiatric: Reports: No Symptoms Neurological: Reports: Dizziness. Denies: Syncope Hematologic/Lymphatic: Reports: No Symptoms Immunologic: Reports: No Symptoms Exam - Exam Exam: See Below - Vital Signs Vital Signs: Last Vital Signs Temp 95.3 F L 08/11/19 09:37 Pulse 51 L 08/11/19 11:36 Resp 18 08/11/19 11:36 BP 104/59 L 08/11/19 11:36 Pulse Ox 97 08/11/19 11:36 Weight: 86.183 kg - Exam General: Alert, Oriented, Cooperative HEENT: Conjunctiva Clear, EOMI, Mucosa Moist & Edwards, Posterior Pharynx Clear, Pupils Equal, Pupils Reactive Neck: Supple, Trachea Midline Lungs: Clear to Auscultation, Normal Respiratory Effort Cardiovascular: Regular Rhythm, Bradycardia GI/Abdominal Exam: Normal Bowel Sounds, Soft, Non-Tender, No Distention Extremities: No Pedal Edema Skin: Warm, Dry, Intact Neurological: Cranial Nerves Intact Neuro Extensive - Mental Status: Alert, Oriented x3 Psychiatric: Alert, Normal Affect, Normal Mood - Patient Data Lab Results Last 24 hrs: Laboratory Results - last 24 hr 08/11/19 08/11/19 08/11/19 Range/Units 09:57 09:57 11:49 WBC 7.54 (4.0-11.0) K/uL RBC 3.88 L (4.30-5.90) M/uL Hgb 12.9 (12.0-16.0) g/dL Hct 40.2 (36.0-46.0) % MCV 103.6 H (80.0-98.0) fL MCH 33.2 H (27.0-32.0) pg MCHC 32.1 (31.0-37.0) g/dL RDW Std Deviation 48.2 (28.0-62.0) fl RDW Coeff of Tray 13 (11.0-15.0) % Plt Count 261 (150-400) K/uL MPV 9.40 (7.40-12.00) fL Neut % (Auto) 64.3 (48.0-80.0) % Lymph % (Auto) 24.0 (16.0-40.0) % Garrett % (Auto) 8.9 (0.0-15.0) % Eos % (Auto) 2.5 (0.0-7.0) % Baso % (Auto) 0.3 (0.0-1.5) % Neut # (Auto) 4.9 (1.4-5.7) K/uL Lymph # (Auto) 1.8 (0.6-2.4) K/uL Garrett # (Auto) 0.7 (0.0-0.8) K/uL Eos # (Auto) 0.2 (0.0-0.7) K/uL Baso # (Auto) 0.0 (0.0-0.1) K/uL Nucleated RBC % 0.0 /100WBC Nucleated RBCs # 0 K/uL Sodium 142 (136-145) mmol/L Potassium 3.3 L (3.5-5.1) mmol/L Chloride 105 (98-107) mmol/L Carbon Dioxide 25.8 (21.0-32.0) mmol/L BUN 24 H (7.0-18.0) mg/dL Creatinine 1.0 (0.6-1.0) mg/dL Est Cr Clr Drug Dosing 35.49 mL/min Estimated GFR (MDRD) 53.3 ml/min Glucose 102 (74-106) mg/dL Calcium 9.3 (8.5-10.1) mg/dL Total Bilirubin 0.6 (0.2-1.0) mg/dL AST 12 L (15-37) IU/L ALT 14 (14-63) IU/L Alkaline Phosphatase 60 (46-116) U/L Troponin I < 0.050 (0.000-0.056) ng/mL Total Protein 6.7 (6.4-8.2) g/dL Albumin 3.5 (3.4-5.0) g/dL Globulin 3.2 (2.6-4.0) g/dL Albumin/Globulin Ratio 1.1 (0.9-1.6) Urine Color YELLOW Urine Appearance SLT CLOUDY Urine pH 7.0 (5.0-8.0) Ur Specific [place] 1.020 (1.001-1.035) Urine Protein NEGATIVE (NEGATIVE) mg/dL Urine Glucose (UA) NEGATIVE (NEGATIVE) mg/dL Urine Ketones NEGATIVE (NEGATIVE) mg/dL Urine Occult Blood NEGATIVE (NEGATIVE) Urine Nitrite NEGATIVE (NEGATIVE) Urine Bilirubin NEGATIVE (NEGATIVE) Urine Urobilinogen 1.0 (<2.0) EU/dL Ur Leukocyte Esterase SMALL H (NEGATIVE) Urine RBC RARE (0-2/HPF) Urine WBC 2-4 (0-5/HPF) Ur Epithelial Cells MODERATE (NONE-FEW) Amorphous Sediment LIGHT (NEGATIVE) Urine Bacteria 1+ H (NEGATIVE) Hyaline Casts 0-1 (0-2/LPF) Urine Mucus MODERATE (NONE-MOD) Result Diagrams: 08/11/19 09:57 08/11/19 09:57 Problem List Initiated/Reviewed/Updated: Yes Orders Last 24hrs: Active Orders 24 hr Category Date Time Status Admission Status [Patient Status] [ADT] Stat ADT 08/11/19 12:23 Active Cardiac Monitoring [RC] . DIRECTED Care 08/11/19 12:23 Active EKG Documentation Completion [RC] STAT Care 08/11/19 09:36 Active CULTURE URINE [RM] Stat Lab 08/11/19 11:49 Received Sodium Chloride 0.9% [Normal Saline] 1,000 ml Med 08/11/19 09:36 Active IV STAT Medication Orders Sodium Chloride (Normal Saline) 1,000 mls @ 100 mls/hr IV STAT ONE Stop: 08/11/19 19:35 Last Admin: 08/11/19 09:44 Dose: 100 mls/hr Assessment/Plan Comment:: 1. Admit for observation 2. Code status- DNR/DNI/no blood products 3. Vitals per routine 4. I/Os per routine 5. Diet- regular 6. DVT prophylaxis with lovenox 7. Diarrhea- will order stool studies 8. Dizziness secondary to bradycardia vs hypotension vs UTI- will discontinue propranolol, monitor on telemetry, obtain orthostatic vitals and place on IVF. 9. UTI- treat with Rocephin, urine culture pending 10. Hypokalemia- will replace with 40 mEq and recheck in the AM 11. Concern for MN- initial trop negative and EKG shows no ischemic changes but daughter worried about heart attack, patient has no past medical hx of MN- will trend troponin.
[2019-08-11] MEDS ORDERED: Ondansetron 4 MG/2 ML SDV IVPUSH PRN (13:41)
[2019-08-11] MEDS ORDERED: Potassium Chloride 20 MEQ Tab.ER PO ONE (13:41)
[2019-08-11] MEDS ORDERED: Acetaminophen 325 MG Tab PO PRN (13:41)
[2019-08-11] MEDS ORDERED: Enoxaparin 40 MG/0.4 ML Syringe SUBCUT SCH (13:45)
[2019-08-11] MEDS ORDERED: Fluticasone Propionate Nasal Spray 16 GM Bottle NASBOTH PRN (13:46)
[2019-08-11] MEDS ORDERED: Albuterol 8 GM Inhaler INH PRN (13:46)
[2019-08-11] MEDS: Sodium Chloride 0.9% 1,000 ML IV SCH ×2 (14:00→23:24)
[2019-08-11] MEDS: predniSONE 5 MG Tab PO SCH (20:54)
[2019-08-11] MEDS ORDERED: Sertraline 25 MG Tab PO SCH (21:00)
[2019-08-11] MEDS ORDERED: Simvastatin 40 MG Tab PO SCH (21:00)
[2019-08-12 07:12] LABS: BLOOD UREA NITROGEN,BUN 14 mg/dL (7.0-18.0); CARBON DIOXIDE,CO2 24.7 mmol/L (21.0-32.0); CHLORIDE,CL 109 mmol/L (98-107); GLUCOSE RANDOM 98 mg/dL (74-106); POTASSIUM,K 3.9 mmol/L (3.5-5.1); SODIUM,NA 143 mmol/L (136-145)
[2019-08-12] MEDS ORDERED: Levothyroxine 75 MCG Tab PO SCH (07:30)
--- NOTE | 2019-08-12 08:13 | PCM.DCSUM1 ---
<Florina Randhawa - Last Filed: 08/12/19 10:51> Discharge Summary - Hospital Course Free Text/Narrative:: Admission Date: 08/11/19 Discharge Date: 08/12/19 Admission Diagnosis: 1. Diarrhea 2. Dizziness secondary to bradycardia vs hypotension vs UTI 3. UTI 4. Hypokalemia 5. Concern about [place] Discharge Diagnosis: 1. Diarrhea- resolved 2. Dizziness secondary to bradycardia vs hypotension vs UTI- resolved 3. UTI 4. Hypokalemia- resolved 5. Concern about [place] Procedures: None Consults: None Hospital Course: The patient is a 79 year old female who presents today with 1 month hx of non bloody, watery diarrhea and one day history of "weird episode". The weird episode happened this morning, she got up from bed, felt like the room was spinning, became very hot, went to the bathroom and fell to her knees. Denied head trauma or loss of consciousness. She also endorses increased frequency and burning with urination. In the ER, work up showed no white count, no anemia, slight hypokalemia of 3.3, negative troponin. UA was positive for leuk esterase, bacteria, and WBC. Head CT showed no acute intracranial process but showed chronic small vessel ischemia disease. CXR showed no acute cardiopulmonary process. EKG showed bradycardia with HR of [address] changes. Patient is on propranolol 20 mg after episode of SVT last year that required hospitalization. She was also hypotensive in the ER with BP of 99/54 that slightly improved to 104/59 with 1 L of IVF. In the ER she received a dose of Rocephin. She was admitted to the medical surgical floor for observation. She was monitored on telemetry without any significant events. We tried to obtain stool studies but the patient did not have any diarrhea while admitted. She was able to offer a stool sample that was negative for Campylobacter and Cdiff, other stool studies were pending at time of discharge. For her dizziness , orthostatic vitals were obtained and were normal, she was also hypotensive. Her HCTZ and propranolol were held and her BP improved to 121/63. Her rate rate stayed in the high 50s to 80s. She had no further episodes of dizziness while admitted. She was found to have a UTI, treated with Rocephin, urine culture pending at time of discharge. She was found to be hypokalemia, her potassium was replaced and this resolved. Her daughter was concerned about [place], the patient denies chest pain and there were no ST changes on EKG, but we trended her troponins and they were all negative. By day of discharge the patient stated she felt better and wanted to return home. Disposition: Home Discharge Condition: vitals stable, tolerating oral diet, ambulating without difficulty, symptom improvement Discharge Instructions: regular diet as tolerated, activity as tolerated, take medications as prescribed. Symptoms to report to physician include fever/chills , chest pain, shortness of breath, abdominal pain, erythema, drainage/discharge , or not improving as expected. Hold HCTZ and propranolol, take blood pressure and heart rate daily and keep record. Bring record to outpatient follow up appt. Discharge Medications: Levothyroxine 75 mcg PO ACBREAKFAST Sertraline [Zoloft] 25 mg PO BEDTIME predniSONE [Prednisone] 2.5 mg PO BID Albuterol [Ventolin HFA] 1 - 2 puff INH Q4H PRN Potassium Chloride [Klor-Con 10] 10 meq PO DAILY Simvastatin [Zocor] 40 mg PO BEDTIME Cholecalciferol (Vitamin D3) [Vitamin D] 50,000 unit PO WEEKLY Fluticasone Propionate [Flonase] 1 inh NASBOTH DAILY PRN cephALEXin [Keflex] 500 mg PO BID 3 Days Follow-up: 1. PCP- Dr. Randhawa on 08/25/19 - Discharge Data Discharge Date: 08/12/19 Discharge Disposition: Home, Self-Care 01 Condition: Fair - Referral to Home Health Primary Care Physician: PCP Unknown - Discharge Plan Prescriptions/Med Rec: cephALEXin [Keflex] 500 mg PO BID 3 Days #6 cap Home Medications: Home Meds Levothyroxine 75 mcg PO ACBREAKFAST 09/29/15 [History] Sertraline [Zoloft] 25 mg PO BEDTIME #30 tablet 12/18/16 [Rx] predniSONE [Prednisone] 2.5 mg PO BID 12/18/16 [History] Albuterol [Ventolin HFA] 1 - 2 puff INH Q4H PRN 06/04/18 [History] Potassium Chloride [Klor-Con 10] 10 meq PO DAILY 06/04/18 [History] Simvastatin [Zocor] 40 mg PO BEDTIME 07/10/18 [History] Cholecalciferol (Vitamin D3) [Vitamin D] 50,000 unit PO WEEKLY 08/11/19 [History ] Fluticasone Propionate [Flonase] 1 inh NASBOTH DAILY PRN 08/11/19 [History] cephALEXin [Keflex] 500 mg PO BID 3 Days #6 cap 08/12/19 [Rx] Patient Handouts: Bradycardia, Adult, Urinary Tract Infection, Adult, Easy-to- Read, Dehydration, Adult, [id number], Cephalexin tablets or capsules, Dizziness Referrals: Florina Randhawa DO [Resident] - 08/25/19 10:15 am Eileen De La Garza [Ordering Only Provider] - - Discharge Summary/Plan Comment DC Time >30 min.: No - Patient Data Vitals - Most Recent: Last Vital Signs Temp 97.1 F 08/12/19 04:00 Pulse 62 08/12/19 04:00 Resp 16 08/12/19 04:00 BP 121/63 08/12/19 04:00 Pulse Ox 97 08/12/19 04:00 Orthostatic Blood Pressure [ 154/79 Standing] Orthostatic Blood Pressure [ 132/62 Sitting] Weight - Most Recent: 86.183 kg I&O - Last 24 hours: Intake & Output 08/11/19 08/12/19 08/12/19 22:59 06:59 14:59 Intake Total 200 2220 Output Total 450 800 Balance -250 1420 Lab Results - Last 24 hrs: Laboratory Results - last 24 hr 08/11/19 08/11/19 08/11/19 Range/Units 09:57 09:57 11:49 WBC 7.54 (4.0-11.0) K/uL RBC 3.88 L (4.30-5.90) M/uL Hgb 12.9 (12.0-16.0) g/dL Hct 40.2 (36.0-46.0) % MCV 103.6 H (80.0-98.0) fL MCH 33.2 H (27.0-32.0) pg MCHC 32.1 (31.0-37.0) g/dL RDW Std Deviation 48.2 (28.0-62.0) fl RDW Coeff of Tray 13 (11.0-15.0) % Plt Count 261 (150-400) K/uL MPV 9.40 (7.40-12.00) fL Neut % (Auto) 64.3 (48.0-80.0) % Lymph % (Auto) 24.0 (16.0-40.0) % Lee % (Auto) 8.9 (0.0-15.0) % Eos % (Auto) 2.5 (0.0-7.0) % Baso % (Auto) 0.3 (0.0-1.5) % Neut # (Auto) 4.9 (1.4-5.7) K/uL Lymph # (Auto) 1.8 (0.6-2.4) K/uL Lee # (Auto) 0.7 (0.0-0.8) K/uL Eos # (Auto) 0.2 (0.0-0.7) K/uL Baso # (Auto) 0.0 (0.0-0.1) K/uL Nucleated RBC % 0.0 /100WBC Nucleated RBCs # 0 K/uL Sodium 142 (136-145) mmol/L Potassium 3.3 L (3.5-5.1) mmol/L Chloride 105 (98-107) mmol/L Carbon Dioxide 25.8 (21.0-32.0) mmol/L BUN 24 H (7.0-18.0) mg/dL Creatinine 1.0 (0.6-1.0) mg/dL Est Cr Clr Drug Dosing 35.49 mL/min Estimated GFR (MDRD) 53.3 ml/min Glucose 102 (74-106) mg/dL Calcium 9.3 (8.5-10.1) mg/dL Total Bilirubin 0.6 (0.2-1.0) mg/dL AST 12 L (15-37) IU/L ALT 14 (14-63) IU/L Alkaline Phosphatase 60 (46-116) U/L Troponin I < 0.050 (0.000-0.056) ng/mL Total Protein 6.7 (6.4-8.2) g/dL Albumin 3.5 (3.4-5.0) g/dL Globulin 3.2 (2.6-4.0) g/dL Albumin/Globulin Ratio 1.1 (0.9-1.6) Urine Color YELLOW Urine Appearance SLT CLOUDY Urine pH 7.0 (5.0-8.0) Ur Specific [place] 1.020 (1.001-1.035) Urine Protein NEGATIVE (NEGATIVE) mg/dL Urine Glucose (UA) NEGATIVE (NEGATIVE) mg/dL Urine Ketones NEGATIVE (NEGATIVE) mg/dL Urine Occult Blood NEGATIVE (NEGATIVE) Urine Nitrite NEGATIVE (NEGATIVE) Urine Bilirubin NEGATIVE (NEGATIVE) Urine Urobilinogen 1.0 (<2.0) EU/dL Ur Leukocyte Esterase SMALL H (NEGATIVE) Urine RBC RARE (0-2/HPF) Urine WBC 2-4 (0-5/HPF) Ur Epithelial Cells MODERATE (NONE-FEW) Amorphous Sediment LIGHT (NEGATIVE) Urine Bacteria 1+ H (NEGATIVE) Hyaline Casts 0-1 (0-2/LPF) Urine Mucus MODERATE (NONE-MOD) 08/11/19 08/11/19 08/12/19 Range/Units 16:03 22:10 06:40 WBC 5.80 (4.0-11.0) K/uL RBC 3.58 L (4.30-5.90) M/uL Hgb 11.7 L (12.0-16.0) g/dL Hct 36.8 (36.0-46.0) % MCV 102.8 H (80.0-98.0) fL MCH 32.7 H (27.0-32.0) pg MCHC 31.8 (31.0-37.0) g/dL RDW Std Deviation 47.5 (28.0-62.0) fl RDW Coeff of Tray 13 (11.0-15.0) % Plt Count 243 (150-400) K/uL MPV 9.40 (7.40-12.00) fL Neut % (Auto) 59.2 (48.0-80.0) % Lymph % (Auto) 30.2 (16.0-40.0) % Lee % (Auto) 8.1 (0.0-15.0) % Eos % (Auto) 2.2 (0.0-7.0) % Baso % (Auto) 0.3 (0.0-1.5) % Neut # (Auto) 3.4 (1.4-5.7) K/uL Lymph # (Auto) 1.8 (0.6-2.4) K/uL Lee # (Auto) 0.5 (0.0-0.8) K/uL Eos # (Auto) 0.1 (0.0-0.7) K/uL Baso # (Auto) 0.0 (0.0-0.1) K/uL Nucleated RBC % 0.0 /100WBC Nucleated RBCs # 0 K/uL Sodium (136-145) mmol/L Potassium (3.5-5.1) mmol/L Chloride (98-107) mmol/L Carbon Dioxide (21.0-32.0) mmol/L BUN (7.0-18.0) mg/dL Creatinine (0.6-1.0) mg/dL Est Cr Clr Drug Dosing mL/min Estimated GFR (MDRD) ml/min Glucose (74-106) mg/dL Calcium (8.5-10.1) mg/dL Total Bilirubin (0.2-1.0) mg/dL AST (15-37) IU/L ALT (14-63) IU/L Alkaline Phosphatase (46-116) U/L Troponin I < 0.050 < 0.050 (0.000-0.056) ng/mL Total Protein (6.4-8.2) g/dL Albumin (3.4-5.0) g/dL Globulin (2.6-4.0) g/dL Albumin/Globulin Ratio (0.9-1.6) Urine Color Urine Appearance Urine pH (5.0-8.0) Ur Specific [place] (1.001-1.035) Urine Protein (NEGATIVE) mg/dL Urine Glucose (UA) (NEGATIVE) mg/dL Urine Ketones (NEGATIVE) mg/dL Urine Occult Blood (NEGATIVE) Urine Nitrite (NEGATIVE) Urine Bilirubin (NEGATIVE) Urine Urobilinogen (<2.0) EU/dL Ur Leukocyte Esterase (NEGATIVE) Urine RBC (0-2/HPF) Urine WBC (0-5/HPF) Ur Epithelial Cells (NONE-FEW) Amorphous Sediment (NEGATIVE) Urine Bacteria (NEGATIVE) Hyaline Casts (0-2/LPF) Urine Mucus (NONE-MOD) 08/12/19 Range/Units 06:40 WBC (4.0-11.0) K/uL RBC (4.30-5.90) M/uL Hgb (12.0-16.0) g/dL Hct (36.0-46.0) % MCV (80.0-98.0) fL MCH (27.0-32.0) pg MCHC (31.0-37.0) g/dL RDW Std Deviation (28.0-62.0) fl RDW Coeff of Tray (11.0-15.0) % Plt Count (150-400) K/uL MPV (7.40-12.00) fL Neut % (Auto) (48.0-80.0) % Lymph % (Auto) (16.0-40.0) % Lee % (Auto) (0.0-15.0) % Eos % (Auto) (0.0-7.0) % Baso % (Auto) (0.0-1.5) % Neut # (Auto) (1.4-5.7) K/uL Lymph # (Auto) (0.6-2.4) K/uL Lee # (Auto) (0.0-0.8) K/uL Eos # (Auto) (0.0-0.7) K/uL Baso # (Auto) (0.0-0.1) K/uL Nucleated RBC % /100WBC Nucleated RBCs # K/uL Sodium 143 (136-145) mmol/L Potassium 3.9 (3.5-5.1) mmol/L Chloride 109 H (98-107) mmol/L Carbon Dioxide 24.7 (21.0-32.0) mmol/L BUN 14 (7.0-18.0) mg/dL Creatinine 0.9 (0.6-1.0) mg/dL Est Cr Clr Drug Dosing 41.24 mL/min Estimated GFR (MDRD) > 60.0 ml/min Glucose 98 (74-106) mg/dL Calcium 8.8 (8.5-10.1) mg/dL Total Bilirubin (0.2-1.0) mg/dL AST (15-37) IU/L ALT (14-63) IU/L Alkaline Phosphatase (46-116) U/L Troponin I (0.000-0.056) ng/mL Total Protein (6.4-8.2) g/dL Albumin (3.4-5.0) g/dL Globulin (2.6-4.0) g/dL Albumin/Globulin Ratio (0.9-1.6) Urine Color Urine Appearance Urine pH (5.0-8.0) Ur Specific [place] (1.001-1.035) Urine Protein (NEGATIVE) mg/dL Urine Glucose (UA) (NEGATIVE) mg/dL Urine Ketones (NEGATIVE) mg/dL Urine Occult Blood (NEGATIVE) Urine Nitrite (NEGATIVE) Urine Bilirubin (NEGATIVE) Urine Urobilinogen (<2.0) EU/dL Ur Leukocyte Esterase (NEGATIVE) Urine RBC (0-2/HPF) Urine WBC (0-5/HPF) Ur Epithelial Cells (NONE-FEW) Amorphous Sediment (NEGATIVE) Urine Bacteria (NEGATIVE) Hyaline Casts (0-2/LPF) Urine Mucus (NONE-MOD) Med Orders - Current: Current Medications Acetaminophen (Tylenol) 650 mg PO Q4H PRN PRN Reason: Pain/Fever Last Admin: 08/12/19 06:47 Dose: 650 mg Albuterol (Ventolin Hfa) 0 gm INH Q4H PRN PRN Reason: Wheezing Enoxaparin Sodium (Lovenox) 40 mg SUBCUT Q24H [facility] Last Admin: 08/11/19 14:03 Dose: 40 mg Fluticasone Propionate (Flonase) 0 gm NASBOTH DAILY PRN PRN Reason: Allergies Ceftriaxone Sodium/Dextrose 1 (gm/ Premix) 50 mls @ 100 mls/hr IV Q24H [facility] Sodium Chloride (Normal Saline) 1,000 mls @ 100 mls/hr IV ASDIRECTED [facility] Last Admin: 08/11/19 23:24 Dose: 100 mls/hr Levothyroxine Sodium (Levothyroxine) 75 mcg PO ACBREAKFAST [facility] Last Admin: 08/12/19 06:40 Dose: 75 mcg Ondansetron HCl (Zofran) 4 mg IVPUSH Q4H PRN PRN Reason: Nausea/Vomiting Prednisone (Prednisone) 2.5 mg PO BID [facility] Last Admin: 08/11/19 20:54 Dose: 2.5 mg Sertraline HCl (Zoloft) 25 mg PO BEDTIME [facility] Last Admin: 08/11/19 20:54 Dose: 25 mg Simvastatin (Zocor) 40 mg PO BEDTIME [facility] Last Admin: 08/11/19 20:54 Dose: 40 mg Discontinued Medications Sodium Chloride (Normal Saline) 1,000 mls @ 100 mls/hr IV STAT ONE Stop: 08/11/19 19:35 Last Admin: 08/11/19 09:44 Dose: 100 mls/hr Ceftriaxone Sodium/Dextrose 1 (gm/ Premix) 50 mls @ 100 mls/hr IV ONETIME ONE Stop: 08/11/19 12:52 Last Admin: 08/11/19 12:37 Dose: 100 mls/hr Ondansetron HCl (Zofran) 4 mg IVPUSH ONETIME ONE Stop: 08/11/19 09:38 Last Admin: 08/11/19 11:42 Dose: Not Given Potassium Chloride (Klor-Con M20) 40 meq PO ONETIME ONE Stop: 08/11/19 13:42 Last Admin: 08/11/19 14:03 Dose: 40 meq <Miguel Howell - Last Filed: 08/13/19 15:36> Discharge Summary - Referral to Home Health Primary Care Physician: PCP Unknown - Patient Data Vitals - Most Recent: Last Vital Signs Temp 36.2 C 08/12/19 08:00 Pulse 64 08/12/19 08:00 Resp 16 08/12/19 08:00 BP 163/71 H 08/12/19 08:00 Pulse Ox 97 08/12/19 08:00 Orthostatic Blood Pressure [ 154/79 Standing] Orthostatic Blood Pressure [ 132/62 Sitting] OLIVIER Results - Last 24 hrs: Microbiology 08/11/19 11:49 Urine Culture - Final Urine, Clean Catch MIXED SUSAN 10,000-100,000 CFU/ML 08/12/19 08:55 Campylobacter Antigen Assay - Final Stool / Feces NEGATIVE CAMPYLOBACTER AG REFERENCE RANGE: NEGATIVE Shiga Toxin I - Final NEGATIVE FOR SHIGA TOXIN 1 REFERENCE RANGE: NEGATIVE Shiga Toxin II - Final NEGATIVE FOR SHIGA TOXIN 2 REFERENCE RANGE: NEGATIVE Med Orders - Current: Current Medications Discontinued Medications Acetaminophen (Tylenol) 650 mg PO Q4H PRN PRN Reason: Pain/Fever Last Admin: 08/12/19 06:47 Dose: 650 mg Albuterol (Ventolin Hfa) 0 gm INH Q4H PRN PRN Reason: Wheezing Enoxaparin Sodium (Lovenox) 40 mg SUBCUT Q24H MARYELLEN Last Admin: 08/11/19 14:03 Dose: 40 mg Fluticasone Propionate (Flonase) 0 gm NASBOTH DAILY PRN PRN Reason: Allergies Sodium Chloride (Normal Saline) 1,000 mls @ 100 mls/hr IV STAT ONE Stop: 08/11/19 19:35 Last Admin: 08/11/19 09:44 Dose: 100 mls/hr Ceftriaxone Sodium/Dextrose 1 (gm/ Premix) 50 mls @ 100 mls/hr IV ONETIME ONE Stop: 08/11/19 12:52 Last Admin: 08/11/19 12:37 Dose: 100 mls/hr Ceftriaxone Sodium/Dextrose 1 (gm/ Premix) 50 mls @ 100 mls/hr IV Q24H MARYELLEN Sodium Chloride (Normal Saline) 1,000 mls @ 100 mls/hr IV ASDIRECTED [facility] Last Admin: 08/12/19 08:43 Dose: 100 mls/hr Levothyroxine Sodium (Levothyroxine) 75 mcg PO ACBREAKFAST [facility] Last Admin: 08/12/19 06:40 Dose: 75 mcg Ondansetron HCl (Zofran) 4 mg IVPUSH ONETIME ONE Stop: 08/11/19 09:38 Last Admin: 08/11/19 11:42 Dose: Not Given Ondansetron HCl (Zofran) 4 mg IVPUSH Q4H PRN PRN Reason: Nausea/Vomiting Potassium Chloride (Klor-Con M20) 40 meq PO ONETIME ONE Stop: 08/11/19 13:42 Last Admin: 08/11/19 14:03 Dose: 40 meq Prednisone (Prednisone) 2.5 mg PO BID [facility] Last Admin: 08/12/19 08:43 Dose: 2.5 mg Sertraline HCl (Zoloft) 25 mg PO BEDTIME [facility] Last Admin: 08/11/19 20:54 Dose: 25 mg Simvastatin (Zocor) 40 mg PO BEDTIME [facility] Last Admin: 08/11/19 20:54 Dose: 40 mg - Free Text/Narrative Note: I have seen and evaluated the patient with the resident. I have discussed findings and treatment plan with the resident. I agree with the assessment and plan outlined in the following note.
[2019-08-12] MEDS: Sodium Chloride 0.9% 1,000 ML IV SCH (08:43)
[2019-08-12] MEDS: predniSONE 5 MG Tab PO SCH (08:43)
[2019-08-12 09:40] VITALS: BP 163/71; PULSE 64
[2019-08-12] MEDS ORDERED: cefTRIAXone 1 GM in Premix Bag 1 BAG IV SCH (13:45)
== END 2019-08-12 11:40 | disposition home or self-care (01) ==
LOC: MW.ED 09:31 → MW.MS 12:23
PROVIDERS: ADMIT Internal Medicine; ATTEND Internal Medicine
DX: R19.7 Diarrhea, unspecified (principal); R42 Dizziness and giddiness; N39.0 Urinary tract infection, site not specified; E87.6 Hypokalemia; E78.00 Pure hypercholesterolemia, unspecified; E03.9 Hypothyroidism, unspecified; E66.9 Obesity, unspecified; Z79.899 Other long term (current) drug therapy; Z79.52 Long term (current) use of systemic steroids; Z68.33 Body mass index [BMI] 33.0-33.9, adult
CPT/HCPCS: 36415; 70450; 71045; 80048; 80053; 81001; 84484; 85025; 87046; 87086; 87324; 87899; 93005; 96361; 96365; 96372; 99285; A9270; G0378; J0696; J1650; J7040; J7512; 99284

== ENCOUNTER 2019-08-21 18:48 | Observation (INO) | payer MEDICARE, OTHER ==
[2019-08-21] MEDS ORDERED: Sodium Chloride 0.9% 2.5 ML Syringe FLUSH PRN (18:52)
[2019-08-21] MEDS ORDERED: Sodium Chloride 0.9% 10 ML Syringe FLUSH PRN (18:52)
[2019-08-21] MEDS ORDERED: Aspirin 81 MG Tab.Chew PO ONE (18:52)
--- NOTE | 2019-08-21 19:00 | EDM.PDOC ---
ED HPI GENERAL MEDICAL PROBLEM - General Stated Complaint: SOB Time Seen by Provider: 08/21/19 18:55 Source of Information: Reports: Patient History Limitations: Reports: No Limitations - History of Present Illness INITIAL COMMENTS - FREE TEXT/NARRATIVE: HISTORY AND PHYSICAL: History of present illness: Patient is an 79-year-old female who presents to the emergency room today with complaints of palpitations and chest pressure since last evening. She reports that she presented to the emergency room on 08/11/19 for vague chest pain, diarrhea and hypotension. She states that she was admitted overnight and was discharged the following morning. The provider had taken her off of 2 of her "heart medications" as she was weight a cardiac and hypotensive during that period. Since being discharged she has been monitoring her blood pressure 10-20 times per day as she was "told to watch it". Last evening she started to develop some chest pressure and palpitations. She took most of the day to rest as this seemed to help alleviate some of her discomfort. This evening she had noted her blood pressure trending downward, last blood pressure being 80s over 50s and decided to come to the emergency room for evaluation. She states that when she felt the palpitations/chest pressure she did become diaphoretic and lightheaded. Patient denies any fever, chills, headache, change in vision, syncope or near syncope. Denies any back pain, shortness of breath or cough. Denies any abdominal pain, nausea, vomiting, diarrhea, constipation or dysuria. Has not noted any blood in urine or stool. Patient has been eating and drinking appropriately. Review of systems: As per history of present illness and below otherwise all systems reviewed and negative. Past medical history: As per history of present illness and as reviewed below otherwise noncontributory. Surgical history: As per history of present illness and as reviewed below otherwise noncontributory. Social history: See social history for further information Family history: As per history of present illness and as reviewed below otherwise noncontributory. Physical exam: General: Well-developed and well nourished 79-year-old female. Alert and oriented. Nontoxic appearing and in no acute distress. HEENT: Atraumatic, normocephalic, pupils equal and reactive bilaterally, negative for conjunctival pallor or scleral icterus, mucous membranes moist, trachea midline. No drooling or trismus noted. No meningeal signs. No hot potato voice noted. Lungs: Clear to auscultation, breath sounds equal bilaterally, chest nontender. Heart: S1S2, regular rate and rhythm without overt murmur Abdomen: Soft, nondistended, nontender. Negative for masses or hepatosplenomegaly. Negative for costovertebral tenderness. Pelvis: Stable nontender. Skin: Intact, warm, dry. No lesions or rashes noted. Extremities: Atraumatic, moves all extremities per self without difficulty or deficits, negative for cords or calf pain. Neurovascular unremarkable. Neuro: Awake, alert, oriented. Cranial nerves II through XII unremarkable. Cerebellum unremarkable. Motor and sensory unremarkable throughout. Exam nonfocal. Notes: It was noted that the patient's admission on 08/11/19 and she was treated for dehydration, UTI and hypokalemia due to her diarrhea. Chest x-ray is unremarkable. EKG shows no new or significant findings. Patient does have an UTI which I will give Rocephin and culture is pending. Patient is currently chest pain-free and vital signs are stable. Dr Love, hospitalist was consulted on this patient. She is agreeable to admit this patient for further observation with telemetry. Patient was made aware and agreeable to plan of care. Denies any further questions or concerns at this time. Diagnostics: CBC, CMP, UA, troponin, EKG, one view chest, TSH, orthostatic vital signs Therapeutics: Aspirin, NS @ 125 mls/hr Impression: Chest pain r/o FL UTI Plan: Observation admission to [facility] Definitive disposition and diagnosis as appropriate pending reevaluation and review of above. - Related Data Allergies Allergy/AdvReac Type Severity Reaction Status Date / Time No Known Allergies Allergy Verified 08/21/19 19:07 Home Meds: Home Meds Levothyroxine 75 mcg PO ACBREAKFAST 09/29/15 [History] Sertraline [Zoloft] 25 mg PO BEDTIME #30 tablet 12/18/16 [Rx] predniSONE [Prednisone] 2.5 mg PO BID 12/18/16 [History] Albuterol [Ventolin HFA] 1 - 2 puff INH Q4H PRN 06/04/18 [History] Potassium Chloride [Klor-Con 10] 10 meq PO DAILY 06/04/18 [History] Simvastatin [Zocor] 40 mg PO BEDTIME 06/04/18 [History] Cholecalciferol (Vitamin D3) [Vitamin D] 50,000 unit PO WEEKLY 08/11/19 [History ] Fluticasone Propionate [Flonase] 1 inh NASBOTH DAILY PRN 08/11/19 [History] cephALEXin [Keflex] 500 mg PO BID 3 Days #6 cap 08/12/19 [Rx] Past Medical History HEENT History: Reports: Allergic Rhinitis Other HEENT History: wears glasses Cardiovascular History: Reports: Arrhythmia, High Cholesterol Other Cardiovascular History: Occasional palpitations, 'do not know if it's nerves or what" Respiratory History: Reports: None Gastrointestinal History: Reports: None Other Gastrointestinal History: Indigestion, pain to back Genitourinary History: Reports: None Other Genitourinary History: Urgency at times, Recent discovery of abnormality on one of my kidneys [employer] History: Reports: Musculoskeletal History: Reports: None Neurological History: Reports: Other (See Below) Other Neuro History: Tremor Psychiatric History: Reports: None Other Psychiatric History: Get a little anxious on occasion Endocrine/Metabolic History: Reports: Hypothyroidism, Obesity/BMI 30+ Other Endocrine/Metabolic History: hypothyroidism Hematologic History: Reports: None Immunologic History: Reports: None Oncologic (Cancer) History: Reports: None Dermatologic History: Reports: None - Past Surgical History Head Surgeries/Procedures: Reports: None GI Surgical History: Reports: Cholecystectomy, Colonoscopy, Other (See Below) Other GI Surgeries/Procedures: bowel surgery Musculoskeletal Surgical History: Reports: Other (See Below) 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 ED EXAM, GENERAL - Physical Exam Exam: See Below (See dictation) Course - Vital Signs Last Recorded V/S: Last Vital Signs Temp 97.5 F 08/21/19 19:08 Pulse 91 08/21/19 20:08 Resp 18 08/21/19 20:08 BP 116/74 08/21/19 20:08 Pulse Ox 97 08/21/19 20:08 Orthostatic Blood Pressure [ 120/70 Standing] Orthostatic Blood Pressure [ 135/80 Sitting] Orthostatic Blood Pressure [ 111/52 Supine] - Orders/Labs/Meds Orders: Active Orders 24 hr Category Date Time Status EKG Documentation Completion [RC] STAT Care 08/21/19 18:52 Active Orthostatic Vital Signs [RC] ASDIRECTED Care 08/21/19 18:54 Active CULTURE URINE [RM] Stat Lab 08/21/19 19:18 Received Sodium Chloride 0.9% [Normal Saline] 1,000 ml Med 08/21/19 19:01 Active IV STAT Sodium Chloride 0.9% [Saline Flush] Med 08/21/19 18:52 Active 10 ml FLUSH ASDIRECTED PRN Sodium Chloride 0.9% [Saline Flush] Med 08/21/19 18:52 Active 2.5 ml FLUSH ASDIRECTED PRN cefTRIAXone [Rocephin in Dextrose,Iso-Osm 1 GM/50 ML] 1 Med 08/21/19 19:50 Ordered gm Premix Bag 1 bag IV ONETIME Saline Lock Insert [OM.PC] Stat Oth 08/21/19 18:52 Ordered Medication Orders Sodium Chloride (Normal Saline) 1,000 mls @ 125 mls/hr IV STAT ONE Stop: 08/22/19 03:00 Last Admin: 08/21/19 19:08 Dose: 125 mls/hr Ceftriaxone Sodium/Dextrose 1 (gm/ Premix) 50 mls @ 100 mls/hr IV ONETIME ONE Stop: 08/21/19 20:19 Last Admin: 08/21/19 20:06 Dose: 100 mls/hr Sodium Chloride (Saline Flush) 10 ml FLUSH ASDIRECTED PRN PRN Reason: Keep Vein Open Sodium Chloride (Saline Flush) 2.5 ml FLUSH ASDIRECTED PRN PRN Reason: Keep Vein Open Labs: Laboratory Tests 08/21/19 08/21/19 08/21/19 Range/Units 19:06 19:06 19:18 WBC 8.86 (4.0-11.0) K/uL RBC 4.11 L (4.30-5.90) M/uL Hgb 13.8 (12.0-16.0) g/dL Hct 42.0 (36.0-46.0) % MCV 102.2 H (80.0-98.0) fL MCH 33.6 H (27.0-32.0) pg MCHC 32.9 (31.0-37.0) g/dL RDW Std Deviation 48.1 (28.0-62.0) fl RDW Coeff of Tray 13 (11.0-15.0) % Plt Count 269 (150-400) K/uL MPV 9.60 (7.40-12.00) fL Neut % (Auto) 64.5 (48.0-80.0) % Lymph % (Auto) 23.3 (16.0-40.0) % [place] % (Auto) 9.6 (0.0-15.0) % Eos % (Auto) 2.1 (0.0-7.0) % Baso % (Auto) 0.5 (0.0-1.5) % Neut # (Auto) 5.7 (1.4-5.7) K/uL Lymph # (Auto) 2.1 (0.6-2.4) K/uL Kent # (Auto) 0.9 H (0.0-0.8) K/uL Eos # (Auto) 0.2 (0.0-0.7) K/uL Baso # (Auto) 0.0 (0.0-0.1) K/uL Nucleated RBC % 0.0 /100WBC Nucleated RBCs # 0 K/uL Sodium 145 (136-145) mmol/L Potassium 3.6 (3.5-5.1) mmol/L Chloride 108 H (98-107) mmol/L Carbon Dioxide 25.9 (21.0-32.0) mmol/L BUN 19 H (7.0-18.0) mg/dL Creatinine 1.0 (0.6-1.0) mg/dL Est Cr Clr Drug Dosing TNP Estimated GFR (MDRD) 53.3 ml/min Glucose 105 (74-106) mg/dL Calcium 8.9 (8.5-10.1) mg/dL Total Bilirubin 0.5 (0.2-1.0) mg/dL AST 11 L (15-37) IU/L ALT 19 (14-63) IU/L Alkaline Phosphatase 62 (46-116) U/L Troponin I < 0.050 (0.000-0.056) ng/mL Total Protein 6.9 (6.4-8.2) g/dL Albumin 3.6 (3.4-5.0) g/dL Globulin 3.3 (2.6-4.0) g/dL Albumin/Globulin Ratio 1.1 (0.9-1.6) TSH 3rd Generation 0.59 (0.36-3.74) uIU/mL Urine Color YELLOW Urine Appearance SLT CLOUDY Urine pH 6.0 (5.0-8.0) Ur Specific Darby 1.025 (1.001-1.035) Urine Protein NEGATIVE (NEGATIVE) mg/dL Urine Glucose (UA) NEGATIVE (NEGATIVE) mg/dL Urine Ketones NEGATIVE (NEGATIVE) mg/dL Urine Occult Blood SMALL H (NEGATIVE) Urine Nitrite NEGATIVE (NEGATIVE) Urine Bilirubin SMALL H (NEGATIVE) Urine Ictotest NEGATIVE Urine Urobilinogen 0.2 (<2.0) EU/dL Ur Leukocyte Esterase MODERATE H (NEGATIVE) Urine RBC 1-3 (0-2/HPF) Urine WBC 25-30 (0-5/HPF) Ur Epithelial Cells FEW (NONE-FEW) Amorphous Sediment FEW (NEGATIVE) Urine Bacteria 1+ H (NEGATIVE) Urine Mucus FEW (NONE-MOD) Meds: Medications Generic Name Dose Route Start Last Admin Trade Name Freq PRN Reason Stop Dose Admin Sodium Chloride 1,000 mls @ 125 mls/hr 08/21/19 19:01 08/21/19 19:08 Normal Saline IV 08/22/19 03:00 125 mls/hr STAT ONE Administration Ceftriaxone Sodium/Dextrose 1 50 mls @ 100 mls/hr 08/21/19 19:50 08/21/19 20: 06 gm/ Premix IV 08/21/19 20:19 100 mls/hr ONETIME ONE Administration Sodium Chloride 10 ml 08/21/19 18:52 Saline Flush FLUSH ASDIRECTED PRN Keep Vein Open Sodium Chloride 2.5 ml 08/21/19 18:52 Saline Flush FLUSH ASDIRECTED PRN Keep Vein Open Discontinued Medications Generic Name Dose Route Start Last Admin Trade Name Freq PRN Reason Stop Dose Admin Aspirin 324 mg 08/21/19 18:52 08/21/19 18:58 Aspirin PO 08/21/19 18:53 324 mg ONETIME ONE Administration Departure - Departure Time of Disposition: 20:17 Disposition: Refer to Observation Clinical Impression: Chest pain, rule out acute myocardial infarction UTI (urinary tract infection) Qualifiers: Urinary tract infection type: acute cystitis Hematuria presence: without hematuria Qualified Code(s): N30.00 - Acute cystitis without hematuria Referrals: PCP,Unknown [Primary Care Provider] - - My Orders Last 24 Hours: My Active Orders 08/21/19 18:52 EKG Documentation Completion [RC] STAT Sodium Chloride 0.9% [Saline Flush] 10 ml FLUSH ASDIRECTED PRN Sodium Chloride 0.9% [Saline Flush] 2.5 ml FLUSH ASDIRECTED PRN Saline Lock Insert [OM.PC] Stat 08/21/19 18:54 Orthostatic Vital Signs [RC] ASDIRECTED 08/21/19 19:01 Sodium Chloride 0.9% [Normal Saline] 1,000 ml IV STAT 08/21/19 19:18 CULTURE URINE [RM] Stat 08/21/19 19:50 cefTRIAXone [Rocephin in Dextrose,Iso-Osm 1 GM/50 ML] 1 gm Premix Bag 1 bag IV ONETIME - Assessment/Plan Last 24 Hours: My Active Orders 08/21/19 18:52 EKG Documentation Completion [RC] STAT Sodium Chloride 0.9% [Saline Flush] 10 ml FLUSH ASDIRECTED PRN Sodium Chloride 0.9% [Saline Flush] 2.5 ml FLUSH ASDIRECTED PRN Saline Lock Insert [OM.PC] Stat 08/21/19 18:54 Orthostatic Vital Signs [RC] ASDIRECTED 08/21/19 19:01 Sodium Chloride 0.9% [Normal Saline] 1,000 ml IV STAT 08/21/19 19:18 CULTURE URINE [RM] Stat 08/21/19 19:50 cefTRIAXone [Rocephin in Dextrose,Iso-Osm 1 GM/50 ML] 1 gm Premix Bag 1 bag IV ONETIME
[2019-08-21] MEDS ORDERED: Sodium Chloride 0.9% 1,000 ML IV ONE (19:01)
--- NOTE | 2019-08-21 19:41 | CR ---
INDICATION: Chest pain. TECHNIQUE: Portable AP upright chest. COMPARISON: 08/11/2019. FINDINGS: Monitoring leads been placed over the chest wall. No new pulmonary infiltrates, pleural effusions or pulmonary vascular congestion with normal heart size. Degenerative changes of the visualized spine. IMPRESSION: No acute radiographic chest finding. Dictated by Kristian Pang MD @ Aug 21 2019 7:39PM Signed by Dr. Kristian Pang @ Aug 21 2019 7:39PM
[2019-08-21 19:46] LABS: BLOOD UREA NITROGEN,BUN 19 mg/dL (7.0-18.0); CARBON DIOXIDE,CO2 25.9 mmol/L (21.0-32.0); CHLORIDE,CL 108 mmol/L (98-107); GLUCOSE RANDOM 105 mg/dL (74-106); POTASSIUM,K 3.6 mmol/L (3.5-5.1); SODIUM,NA 145 mmol/L (136-145)
[2019-08-21] MEDS ORDERED: cefTRIAXone 1 GM in Premix Bag 1 BAG IV ONE (19:50)
[2019-08-21] MEDS ORDERED: Albuterol/Ipratropium 3.0-0.5 MG/3 ML Neb Soln NEB PRN (22:11)
--- NOTE | 2019-08-21 22:21 | PCM.HP.2 ---
H&P History of Present Illness - General Date of Service: 08/21/19 Admit Problem/Dx: Admission Diagnosis/Problem Admission Diagnosis/Problem Chest pain, rule out acute myocardial infarction Source of Information: Patient History Limitations: Reports: No Limitations - History of Present Illness Initial Comments - Free Text/Narative: Patient is a 79 y/0 F who comes in to ER with c/o chest pain and palpitations.States that her blood pressure was low with sbp of 80s. Patient has PMH of hypothyroidism, polymyalgia rheumatica, allergic rhinitis. Patient denied N/V/D, abdominal pain, fever, chills, dysuria but endorses some rhinorrhea and flu like symptoms that strted today. Patient stated that she didnt really eat or drink much today. In the ER CBC, CMP, TSH, Troponins, EKG and CXR was obtained which were all unremarkable. BP was in acceptable range. UA was positive for UTI. Patient was recently discharged on abx for recenet UTI , cultures at that time showed mixed anny. In the ED patient received Rocephin. Patient was admitted to observation tele for management of chest pain and UTI. Onset of Symptoms: Reports: Today Location: Reports: Chest Quality: Reports: Pressure Severity: Moderate Improves with: Denies: None Worsens with: Denies: None Associated Symptoms: Reports: Chest Pain, Loss of Appetite, Malaise. Denies: Confusion, Cough, cough w sputum, Nausea/Vomiting, Seizure, Shortness of Breath - Related Data Allergies/Adverse Reactions: Allergies Allergy/AdvReac Type Severity Reaction Status Date / Time No Known Allergies Allergy Verified 08/21/19 20:53 Home Medications: Home Meds Levothyroxine 75 mcg PO ACBREAKFAST 09/29/15 [History] Sertraline [Zoloft] 25 mg PO BEDTIME #30 tablet 12/18/16 [Rx] predniSONE [Prednisone] 2.5 mg PO BID 12/18/16 [History] Albuterol [Ventolin HFA] 1 - 2 puff INH Q4H PRN 06/04/18 [History] Potassium Chloride [Klor-Con 10] 10 meq PO DAILY 06/04/18 [History] Simvastatin [Zocor] 40 mg PO BEDTIME 06/04/18 [History] Cholecalciferol (Vitamin D3) [Vitamin D] 50,000 unit PO WEEKLY 08/11/19 [History ] Fluticasone Propionate [Flonase] 1 inh NASBOTH DAILY PRN 08/11/19 [History] cephALEXin [Keflex] 500 mg PO BID 3 Days #6 cap 08/12/19 [Rx] Past Medical History HEENT History: Reports: Allergic Rhinitis Other HEENT History: wears glasses Cardiovascular History: Reports: Arrhythmia, High Cholesterol Other Cardiovascular History: Occasional palpitations, 'do not know if it's nerves or what" Respiratory History: Reports: Asthma Gastrointestinal History: Reports: None Other Gastrointestinal History: Indigestion, pain to back Genitourinary History: Reports: None Other Genitourinary History: Urgency at times, Recent discovery of abnormality on one of my kidneys [employer] History: Reports: Musculoskeletal History: Reports: None Neurological History: Reports: Other (See Below) Other Neuro History: Tremor Psychiatric History: Reports: None Other Psychiatric History: Get a little anxious on occasion Endocrine/Metabolic History: Reports: Hypothyroidism, Obesity/BMI 30+ Other Endocrine/Metabolic History: hypothyroidism Hematologic History: Reports: None Immunologic History: Reports: None Oncologic (Cancer) History: Reports: None Dermatologic History: Reports: None - Infectious Disease History Infectious Disease History: Reports: Chicken Pox, Mumps - Past Surgical History Head Surgeries/Procedures: Reports: None HEENT Surgical History: Reports: None Cardiovascular Surgical History: Reports: None Respiratory Surgical History: Reports: None GI Surgical History: Reports: Cholecystectomy, Colonoscopy, Other (See Below) Other GI Surgeries/Procedures: bowel surgery Musculoskeletal Surgical History: Reports: Other (See Below) Other Musculoskeletal Surgeries/Procedures:: Polymyalgi rhemitatica Social & Family History - Family History Family Medical History: Noncontributory Cardiac: Reports: Other (See Below) Other Cardiac Family History: open heart surgery-mother OBGYN: Reports: Oncologic: Reports: Colon Other Oncologic Family History: Father had colon cancer - Tobacco Use Smoking Status *Q: Never Smoker Second Hand Smoke Exposure: No - Caffeine Use Caffeine Use: Reports: Coffee Caffeine Use Comment: 2 cups a day - Recreational Drug Use Recreational Drug Use: No H&P Review of Systems - Review of Systems: Review Of Systems: See Below General: Reports: Malaise, Weakness, Fatigue, Diaphoresis, Decreased Appetite. Denies: Fever, Chills, Night Sweats HEENT: Reports: Rhinitis, Sinus Congestion Pulmonary: Reports: Shortness of Breath, Cough. Denies: Wheezing, Sputum Cardiovascular: Reports: Chest Pain, Palpitations, Edema, Blood Pressure Problem. Denies: Orthopnea, PND Gastrointestinal: Denies: Abdominal Pain, Anorexia, Black Stool Genitourinary: Denies: Dysuria, Frequency, Burning Musculoskeletal: Denies: Neck Pain, Shoulder Pain, Arm Pain Skin: Denies: Jaundice, Rash, Erythema Neurological: Denies: No Symptoms, Confusion, Dizziness Hematologic/Lymphatic: Denies: No Symptoms, Easy Bleeding, Easy Bruising Immunologic: Denies: Anaphylaxis Exam - Exam Exam: See Below - Vital Signs Vital Signs: Last Vital Signs Temp 36.3 C 08/21/19 20:36 Pulse 81 08/21/19 20:36 Resp 16 08/21/19 20:36 BP 122/57 L 08/21/19 20:36 Pulse Ox 94 L 08/21/19 20:36 Orthostatic Blood Pressure [ 120/70 Standing] Orthostatic Blood Pressure [ 135/80 Sitting] Orthostatic Blood Pressure [ 111/52 Supine] Weight: 199 lb 11.2 oz - Exam Quality Assessment: Supplemental Oxygen General: Alert, Oriented HEENT: Conjunctiva Clear, Rhinitis Neck: Supple, Trachea Midline Lungs: Clear to Auscultation, Normal Respiratory Effort. No: Decreased Breath Sounds, Wheezing Cardiovascular: Regular Rate, Regular Rhythm GI/Abdominal Exam: Normal Bowel Sounds, Soft, Non-Tender Extremities: Normal Inspection, Normal Range of Motion Peripheral Pulses: 3+: Radial (L), Radial (R), Dorsalis Pedis (L), Dorsalis Pedis (R) Skin: Warm, Dry Neurological: Cranial Nerves Intact, Strength Equal Bilateral, Normal Tone Neuro Extensive - Mental Status: Alert, Oriented x3 Neuro Extensive - Motor, Sensory, Reflexes: Normal Reflexes - Patient Data Lab Results Last 24 hrs: Laboratory Results - last 24 hr 08/21/19 08/21/19 08/21/19 Range/Units 19:06 19:06 19:18 WBC 8.86 (4.0-11.0) K/uL RBC 4.11 L (4.30-5.90) M/uL Hgb 13.8 (12.0-16.0) g/dL Hct 42.0 (36.0-46.0) % MCV 102.2 H (80.0-98.0) fL MCH 33.6 H (27.0-32.0) pg MCHC 32.9 (31.0-37.0) g/dL RDW Std Deviation 48.1 (28.0-62.0) fl RDW Coeff of Tray 13 (11.0-15.0) % Plt Count 269 (150-400) K/uL MPV 9.60 (7.40-12.00) fL Neut % (Auto) 64.5 (48.0-80.0) % Lymph % (Auto) 23.3 (16.0-40.0) % [place] % (Auto) 9.6 (0.0-15.0) % Eos % (Auto) 2.1 (0.0-7.0) % Baso % (Auto) 0.5 (0.0-1.5) % Neut # (Auto) 5.7 (1.4-5.7) K/uL Lymph # (Auto) 2.1 (0.6-2.4) K/uL [place] # (Auto) 0.9 H (0.0-0.8) K/uL Eos # (Auto) 0.2 (0.0-0.7) K/uL Baso # (Auto) 0.0 (0.0-0.1) K/uL Nucleated RBC % 0.0 /100WBC Nucleated RBCs # 0 K/uL Sodium 145 (136-145) mmol/L Potassium 3.6 (3.5-5.1) mmol/L Chloride 108 H (98-107) mmol/L Carbon Dioxide 25.9 (21.0-32.0) mmol/L BUN 19 H (7.0-18.0) mg/dL Creatinine 1.0 (0.6-1.0) mg/dL Est Cr Clr Drug Dosing TNP Estimated GFR (MDRD) 53.3 ml/min Glucose 105 (74-106) mg/dL Calcium 8.9 (8.5-10.1) mg/dL Total Bilirubin 0.5 (0.2-1.0) mg/dL AST 11 L (15-37) IU/L ALT 19 (14-63) IU/L Alkaline Phosphatase 62 (46-116) U/L Troponin I < 0.050 (0.000-0.056) ng/mL Total Protein 6.9 (6.4-8.2) g/dL Albumin 3.6 (3.4-5.0) g/dL Globulin 3.3 (2.6-4.0) g/dL Albumin/Globulin Ratio 1.1 (0.9-1.6) TSH 3rd Generation 0.59 (0.36-3.74) uIU/mL Urine Color YELLOW Urine Appearance SLT CLOUDY Urine pH 6.0 (5.0-8.0) Ur Specific [place] 1.025 (1.001-1.035) Urine Protein NEGATIVE (NEGATIVE) mg/dL Urine Glucose (UA) NEGATIVE (NEGATIVE) mg/dL Urine Ketones NEGATIVE (NEGATIVE) mg/dL Urine Occult Blood SMALL H (NEGATIVE) Urine Nitrite NEGATIVE (NEGATIVE) Urine Bilirubin SMALL H (NEGATIVE) Urine Ictotest NEGATIVE Urine Urobilinogen 0.2 (<2.0) EU/dL Ur Leukocyte Esterase MODERATE H (NEGATIVE) Urine RBC 1-3 (0-2/HPF) Urine WBC 25-30 (0-5/HPF) Ur Epithelial Cells FEW (NONE-FEW) Amorphous Sediment FEW (NEGATIVE) Urine Bacteria 1+ H (NEGATIVE) Urine Mucus FEW (NONE-MOD) Result Diagrams: 08/22/19 05:07 08/22/19 05:07 *Q Meaningful Use (ADM) - VTE Risk Assess *Q Each Risk Factor Represents 1 Point: Obesity ( BMI > 25 kg/m2), Medical Patient Currently on Bedrest Total Score 1 Point Risk Factors: 2 - Problem List (1) UTI (urinary tract infection) SNOMED Code(s): 36021380 ICD Code: N39.0 - URINARY TRACT INFECTION, SITE NOT SPECIFIED Status: Acute Current Visit: Yes Qualifiers: Urinary tract infection type: acute cystitis Hematuria presence: without hematuria Qualified Code(s): N30.00 - Acute cystitis without hematuria (2) Chest pain SNOMED Code(s): 34990781 ICD Code: R07.9 - CHEST PAIN, UNSPECIFIED Status: Acute Current Visit: No Qualifiers: Chest pain type: unspecified Qualified Code(s): R07.9 - Chest pain, unspecified Problem List Initiated/Reviewed/Updated: Yes Orders Last 24hrs: Active Orders 24 hr Category Date Time Status Patient Status [ADT] Routine ADT 08/21/19 22:11 Active Diabetes Education [RC] Click to Edit Care 08/21/19 22:15 Active EKG Documentation Completion [RC] STAT Care 08/21/19 18:52 Active Orthostatic Vital Signs [RC] ASDIRECTED Care 08/21/19 18:54 Active Oxygen Therapy [RC] PRN Care 08/21/19 22:11 Active RT Aerosol Therapy [RC] ASDIRECTED Care 08/21/19 22:15 Active Telemetry Monitoring [Cardiac Monitoring] [RC] Q8H Care 08/21/19 20:25 Active Up With Assistance [RC] ASDIRECTED Care 08/21/19 22:11 Active VTE/DVT Education [RC] PER UNIT ROUTINE Care 08/21/19 22:11 Active Vital Signs [RC] Q4H Care 08/21/19 22:11 Active Regular Diet [DIET] Diet 08/22/19 Breakfast Active BASIC METABOLIC PANEL,BMP [CHEM] AM Lab 08/22/19 05:11 Ordered CBC WITH AUTO DIFF [HEME] AM Lab 08/22/19 05:11 Ordered CULTURE URINE [RM] Stat Lab 08/21/19 19:18 Received MAGNESIUM [CHEM] Routine Lab 08/21/19 22:11 Ordered PHOSPHORUS [CHEM] Routine Lab 08/21/19 22:11 Ordered TROPONIN I [CHEM] Routine Lab 08/21/19 22:11 Ordered Acetaminophen [Tylenol] Med 08/21/19 22:11 Ordered 650 mg PO Q4H PRN Albuterol/Ipratropium [DuoNeb 3.0-0.5 MG/3 ML] Med 08/21/19 22:11 Ordered 3 ml NEB Q4HRRT PRN Heparin Sodium Med 08/21/19 22:15 Ordered 5,000 units SUBCUT Q8H Sodium Chloride 0.9% [Normal Saline] 1,000 ml Med 08/21/19 19:01 Active IV STAT Sodium Chloride 0.9% [Saline Flush] Med 08/21/19 18:52 Active 10 ml FLUSH ASDIRECTED PRN Sodium Chloride 0.9% [Saline Flush] Med 08/21/19 18:52 Active 2.5 ml FLUSH ASDIRECTED PRN Glucose Management Sub Q Reflex [OM.PC] Click To Edit Oth 08/21/19 22:11 Ordered Saline Lock Insert [OM.PC] Stat Oth 08/21/19 18:52 Ordered Resuscitation Status Routine Resus Stat 08/21/19 22:11 Ordered Medication Orders Acetaminophen (Tylenol) 650 mg PO Q4H PRN PRN Reason: Pain (Mild 1-3)/fever Sodium Chloride (Normal Saline) 1,000 mls @ 125 mls/hr IV STAT ONE Stop: 08/22/19 03:00 Last Admin: 08/21/19 19:08 Dose: 125 mls/hr Sodium Chloride (Saline Flush) 10 ml FLUSH ASDIRECTED PRN PRN Reason: Keep Vein Open Sodium Chloride (Saline Flush) 2.5 ml FLUSH ASDIRECTED PRN PRN Reason: Keep Vein Open Assessment/Plan Comment:: 1)Chest pain: patient comes in with c/o CP and palpitations, EKG on admissions showed NSR with occasional PVC Resolved during my encounter Troponin negative, will trend f/u on BMP, mg and phos TSH noted cont ASA, and statin obtain lipid profile and HbA1c 2) UTI: UA was postive for infection Received Ceftriaxone, will cont f/u on Urine cultures Will switch to PO based on culture results cont DVT ppx anticipate 1 midnight stay based on current clinical status
[2019-08-21] MEDS ORDERED: Fluticasone Propionate Nasal Spray 16 GM Bottle NASBOTH PRN (22:27)
[2019-08-21] MEDS ORDERED: CHOLECALCIFEROL 50000 UNIT PO SCH (22:30)
[2019-08-21] MEDS ORDERED: Heparin Sodium 5,000 Units/ML Vial SUBCUT ONE (22:30)
[2019-08-21] MEDS ORDERED: Sodium Chloride 0.9% 1,000 ML IV SCH (22:45)
[2019-08-21] MEDS: Simvastatin 40 MG Tab PO SCH (23:07)
[2019-08-21] MEDS: Sertraline 25 MG Tab PO SCH (23:07)
[2019-08-22 05:33] LABS: BLOOD UREA NITROGEN,BUN 17 mg/dL (7.0-18.0); CARBON DIOXIDE,CO2 24.8 mmol/L (21.0-32.0); CHLORIDE,CL 110 mmol/L (98-107); GLUCOSE RANDOM 94 mg/dL (74-106); POTASSIUM,K 3.4 mmol/L (3.5-5.1); SODIUM,NA 145 mmol/L (136-145)
[2019-08-22 05:34] LABS: HEMOGLOBIN A1C 5.7 % (4.5-6.2)
[2019-08-22] MEDS: Acetaminophen 325 MG Tab PO PRN ×3 (05:55→18:24)
[2019-08-22] MEDS: Heparin Sodium 5,000 Units/ML Vial SUBCUT SCH ×3 (06:46→23:10)
[2019-08-22] MEDS: Levothyroxine 75 MCG Tab PO SCH (06:46)
[2019-08-22] MEDS ORDERED: Potassium Chloride 20 MEQ Tab.ER PO ONE (08:42)
[2019-08-22] MEDS ORDERED: Magnesium Oxide 400 MG Tab PO ONE (08:43)
--- NOTE | 2019-08-22 11:54 | PCM.PN ---
- General Info Date of Service: 08/22/19 Admission Dx/Problem (Free Text): Admission Diagnosis/Problem Admission Diagnosis/Problem Chest pain, rule out acute myocardial infarction - Review of Systems General: Reports: Weakness, Malaise HEENT: Reports: Post Nasal Drip, Sinus Congestion, Rhinitis Pulmonary: Reports: Cough Cardiovascular: Reports: Palpitations Gastrointestinal: Reports: No Symptoms Genitourinary: Reports: No Symptoms Neurological: Reports: Tremors Psychiatric: Reports: Anxiety - Patient Data Vitals - Most Recent: Last Vital Signs Temp 36.8 C 08/22/19 08:51 Pulse 72 08/22/19 08:51 Resp 18 08/22/19 08:51 BP 153/67 H 08/22/19 08:51 Pulse Ox 96 08/22/19 08:51 Orthostatic Blood Pressure [ 119/65 Standing] Orthostatic Blood Pressure [ 122/59 Sitting] Orthostatic Blood Pressure [ 123/57 Supine] Weight - Most Recent: 199 lb 11.2 oz I&O - Last 24 Hours: Intake & Output 08/21/19 08/22/19 08/22/19 22:59 06:59 14:59 Intake Total 1300 Output Total 350 Balance 950 Lab Results Last 24 Hours: Laboratory Results - last 24 hr 08/21/19 08/21/19 08/21/19 Range/Units 19:06 19:06 19:18 WBC 8.86 (4.0-11.0) K/uL RBC 4.11 L (4.30-5.90) M/uL Hgb 13.8 (12.0-16.0) g/dL Hct 42.0 (36.0-46.0) % MCV 102.2 H (80.0-98.0) fL MCH 33.6 H (27.0-32.0) pg MCHC 32.9 (31.0-37.0) g/dL RDW Std Deviation 48.1 (28.0-62.0) fl RDW Coeff of Tray 13 (11.0-15.0) % Plt Count 269 (150-400) K/uL MPV 9.60 (7.40-12.00) fL Neut % (Auto) 64.5 (48.0-80.0) % Lymph % (Auto) 23.3 (16.0-40.0) % [place] % (Auto) 9.6 (0.0-15.0) % Eos % (Auto) 2.1 (0.0-7.0) % Baso % (Auto) 0.5 (0.0-1.5) % Neut # (Auto) 5.7 (1.4-5.7) K/uL Lymph # (Auto) 2.1 (0.6-2.4) K/uL [place] # (Auto) 0.9 H (0.0-0.8) K/uL Eos # (Auto) 0.2 (0.0-0.7) K/uL Baso # (Auto) 0.0 (0.0-0.1) K/uL Nucleated RBC % 0.0 /100WBC Nucleated RBCs # 0 K/uL Sodium 145 (136-145) mmol/L Potassium 3.6 (3.5-5.1) mmol/L Chloride 108 H (98-107) mmol/L Carbon Dioxide 25.9 (21.0-32.0) mmol/L BUN 19 H (7.0-18.0) mg/dL Creatinine 1.0 (0.6-1.0) mg/dL Est Cr Clr Drug Dosing TNP Estimated GFR (MDRD) 53.3 ml/min Glucose 105 (74-106) mg/dL Hemoglobin A1c (4.5-6.2) % Calcium 8.9 (8.5-10.1) mg/dL Phosphorus (2.6-4.7) mg/dL Magnesium (1.8-2.4) mg/dL Total Bilirubin 0.5 (0.2-1.0) mg/dL AST 11 L (15-37) IU/L ALT 19 (14-63) IU/L Alkaline Phosphatase 62 (46-116) U/L Troponin I < 0.050 (0.000-0.056) ng/mL Total Protein 6.9 (6.4-8.2) g/dL Albumin 3.6 (3.4-5.0) g/dL Globulin 3.3 (2.6-4.0) g/dL Albumin/Globulin Ratio 1.1 (0.9-1.6) Triglycerides (0-200) mg/dL Cholesterol (50-200) mg/dL LDL Cholesterol, Calc (60-180) mg/dL VLDL Cholesterol (5-55) mg/dL HDL Cholesterol (40-60) mg/dL Cholesterol/HDL Ratio (3.3-6.0) TSH 3rd Generation 0.59 (0.36-3.74) uIU/mL Urine Color YELLOW Urine Appearance SLT CLOUDY Urine pH 6.0 (5.0-8.0) Ur Specific [place] 1.025 (1.001-1.035) Urine Protein NEGATIVE (NEGATIVE) mg/dL Urine Glucose (UA) NEGATIVE (NEGATIVE) mg/dL Urine Ketones NEGATIVE (NEGATIVE) mg/dL Urine Occult Blood SMALL H (NEGATIVE) Urine Nitrite NEGATIVE (NEGATIVE) Urine Bilirubin SMALL H (NEGATIVE) Urine Ictotest NEGATIVE Urine Urobilinogen 0.2 (<2.0) EU/dL Ur Leukocyte Esterase MODERATE H (NEGATIVE) Urine RBC 1-3 (0-2/HPF) Urine WBC 25-30 (0-5/HPF) Ur Epithelial Cells FEW (NONE-FEW) Amorphous Sediment FEW (NEGATIVE) Urine Bacteria 1+ H (NEGATIVE) Urine Mucus FEW (NONE-MOD) 08/21/19 08/22/19 08/22/19 Range/Units 22:30 05:07 05:07 WBC 7.56 (4.0-11.0) K/uL RBC 3.68 L (4.30-5.90) M/uL Hgb 12.1 (12.0-16.0) g/dL Hct 37.6 (36.0-46.0) % MCV 102.2 H (80.0-98.0) fL MCH 32.9 H (27.0-32.0) pg MCHC 32.2 (31.0-37.0) g/dL RDW Std Deviation 48.2 (28.0-62.0) fl RDW Coeff of Tray 13 (11.0-15.0) % Plt Count 235 (150-400) K/uL MPV 9.50 (7.40-12.00) fL Neut % (Auto) 62.7 (48.0-80.0) % Lymph % (Auto) 23.8 (16.0-40.0) % [place] % (Auto) 10.2 (0.0-15.0) % Eos % (Auto) 3.0 (0.0-7.0) % Baso % (Auto) 0.3 (0.0-1.5) % Neut # (Auto) 4.7 (1.4-5.7) K/uL Lymph # (Auto) 1.8 (0.6-2.4) K/uL [place] # (Auto) 0.8 (0.0-0.8) K/uL Eos # (Auto) 0.2 (0.0-0.7) K/uL Baso # (Auto) 0.0 (0.0-0.1) K/uL Nucleated RBC % 0.0 /100WBC Nucleated RBCs # 0 K/uL Sodium 145 (136-145) mmol/L Potassium 3.4 L (3.5-5.1) mmol/L Chloride 110 H (98-107) mmol/L Carbon Dioxide 24.8 (21.0-32.0) mmol/L BUN 17 (7.0-18.0) mg/dL Creatinine 0.8 (0.6-1.0) mg/dL Est Cr Clr Drug Dosing 44.36 Estimated GFR (MDRD) > 60.0 ml/min Glucose 94 (74-106) mg/dL Hemoglobin A1c (4.5-6.2) % Calcium 7.8 L (8.5-10.1) mg/dL Phosphorus 3.7 (2.6-4.7) mg/dL Magnesium 1.8 (1.8-2.4) mg/dL Total Bilirubin (0.2-1.0) mg/dL AST (15-37) IU/L ALT (14-63) IU/L Alkaline Phosphatase (46-116) U/L Troponin I < 0.050 (0.000-0.056) ng/mL Total Protein (6.4-8.2) g/dL Albumin (3.4-5.0) g/dL Globulin (2.6-4.0) g/dL Albumin/Globulin Ratio (0.9-1.6) Triglycerides (0-200) mg/dL Cholesterol (50-200) mg/dL LDL Cholesterol, Calc (60-180) mg/dL VLDL Cholesterol (5-55) mg/dL HDL Cholesterol (40-60) mg/dL Cholesterol/HDL Ratio (3.3-6.0) TSH 3rd Generation (0.36-3.74) uIU/mL Urine Color Urine Appearance Urine pH (5.0-8.0) Ur Specific [place] (1.001-1.035) Urine Protein (NEGATIVE) mg/dL Urine Glucose (UA) (NEGATIVE) mg/dL Urine Ketones (NEGATIVE) mg/dL Urine Occult Blood (NEGATIVE) Urine Nitrite (NEGATIVE) Urine Bilirubin (NEGATIVE) Urine Ictotest Urine Urobilinogen (<2.0) EU/dL Ur Leukocyte Esterase (NEGATIVE) Urine RBC (0-2/HPF) Urine WBC (0-5/HPF) Ur Epithelial Cells (NONE-FEW) Amorphous Sediment (NEGATIVE) Urine Bacteria (NEGATIVE) Urine Mucus (NONE-MOD) 08/22/19 08/22/19 Range/Units 05:07 05:07 WBC (4.0-11.0) K/uL RBC (4.30-5.90) M/uL Hgb (12.0-16.0) g/dL Hct (36.0-46.0) % MCV (80.0-98.0) fL MCH (27.0-32.0) pg MCHC (31.0-37.0) g/dL RDW Std Deviation (28.0-62.0) fl RDW Coeff of Tray (11.0-15.0) % Plt Count (150-400) K/uL MPV (7.40-12.00) fL Neut % (Auto) (48.0-80.0) % Lymph % (Auto) (16.0-40.0) % [place] % (Auto) (0.0-15.0) % Eos % (Auto) (0.0-7.0) % Baso % (Auto) (0.0-1.5) % Neut # (Auto) (1.4-5.7) K/uL Lymph # (Auto) (0.6-2.4) K/uL [place] # (Auto) (0.0-0.8) K/uL Eos # (Auto) (0.0-0.7) K/uL Baso # (Auto) (0.0-0.1) K/uL Nucleated RBC % /100WBC Nucleated RBCs # K/uL Sodium (136-145) mmol/L Potassium (3.5-5.1) mmol/L Chloride (98-107) mmol/L Carbon Dioxide (21.0-32.0) mmol/L BUN (7.0-18.0) mg/dL Creatinine (0.6-1.0) mg/dL Est Cr Clr Drug Dosing Estimated GFR (MDRD) ml/min Glucose (74-106) mg/dL Hemoglobin A1c 5.7 (4.5-6.2) % Calcium (8.5-10.1) mg/dL Phosphorus (2.6-4.7) mg/dL Magnesium (1.8-2.4) mg/dL Total Bilirubin (0.2-1.0) mg/dL AST (15-37) IU/L ALT (14-63) IU/L Alkaline Phosphatase (46-116) U/L Troponin I (0.000-0.056) ng/mL Total Protein (6.4-8.2) g/dL Albumin (3.4-5.0) g/dL Globulin (2.6-4.0) g/dL Albumin/Globulin Ratio (0.9-1.6) Triglycerides 61 (0-200) mg/dL Cholesterol 170 (50-200) mg/dL LDL Cholesterol, Calc 80 (60-180) mg/dL VLDL Cholesterol 12 (5-55) mg/dL HDL Cholesterol 78 H (40-60) mg/dL Cholesterol/HDL Ratio 2.2 L (3.3-6.0) TSH 3rd Generation (0.36-3.74) uIU/mL Urine Color Urine Appearance Urine pH (5.0-8.0) Ur Specific [place] (1.001-1.035) Urine Protein (NEGATIVE) mg/dL Urine Glucose (UA) (NEGATIVE) mg/dL Urine Ketones (NEGATIVE) mg/dL Urine Occult Blood (NEGATIVE) Urine Nitrite (NEGATIVE) Urine Bilirubin (NEGATIVE) Urine Ictotest Urine Urobilinogen (<2.0) EU/dL Ur Leukocyte Esterase (NEGATIVE) Urine RBC (0-2/HPF) Urine WBC (0-5/HPF) Ur Epithelial Cells (NONE-FEW) Amorphous Sediment (NEGATIVE) Urine Bacteria (NEGATIVE) Urine Mucus (NONE-MOD) Samy Results Last 24 Hours: Microbiology 08/21/19 22:59 Influenza Type A Antigen Screen - Final Nasopharyngeal Swab NEGATIVE INFLUENZA A VIRUS AG REFERENCE RANGE: NEGATIVE Influenza Type B Antigen Screen - Final NEGATIVE INFLUENZA B VIRUS AG REFERENCE RANGE: NEGATIVE Med Orders - Current: Current Medications Acetaminophen (Tylenol) 650 mg PO Q4H PRN PRN Reason: Pain (Mild 1-3)/fever Last Admin: 08/22/19 11:32 Dose: 650 mg Albuterol/Ipratropium (Duoneb 3.0-0.5 Mg/3 Ml) 3 ml NEB Q4HRRT PRN PRN Reason: Shortness Of Breath/wheezing Last Admin: 08/22/19 10:51 Dose: 3 ml Fluticasone Propionate (Flonase) 0 gm NASBOTH DAILY PRN PRN Reason: Allergies Heparin Sodium (Porcine) (Heparin Sodium) 5,000 units SUBCUT Q8H [facility] Last Admin: 08/22/19 06:46 Dose: 5,000 units Ceftriaxone Sodium/Dextrose 1 (gm/ Premix) 50 mls @ 100 mls/hr IV ONETIME ONE Stop: 08/22/19 22:59 Ceftriaxone Sodium/Dextrose 1 (gm/ Premix) 50 mls @ 100 mls/hr IV Q24H [facility] Levothyroxine Sodium (Levothyroxine) 75 mcg PO ACBREAKFAST [facility] Last Admin: 08/22/19 06:46 Dose: 75 mcg Non-Formulary Medication (Cholecalciferol (Vitamin D3)) 50,000 unit PO WEEKLY [facility] Prednisone (Prednisone) 2.5 mg PO BID [facility] Propranolol HCl (Inderal La) 60 mg PO DAILY [facility] Sertraline HCl (Zoloft) 25 mg PO BEDTIME [facility] Last Admin: 08/21/19 23:07 Dose: 25 mg Simvastatin (Zocor) 40 mg PO BEDTIME [facility] Last Admin: 08/21/19 23:07 Dose: 40 mg Sodium Chloride (Saline Flush) 10 ml FLUSH ASDIRECTED PRN PRN Reason: Keep Vein Open Sodium Chloride (Saline Flush) 2.5 ml FLUSH ASDIRECTED PRN PRN Reason: Keep Vein Open Discontinued Medications Aspirin (Aspirin) 324 mg PO ONETIME ONE Stop: 08/21/19 18:53 Last Admin: 08/21/19 18:58 Dose: 324 mg Heparin Sodium (Porcine) (Heparin Sodium) 5,000 units SUBCUT ONETIME ONE Stop: 08/21/19 22:31 Last Admin: 08/21/19 23:07 Dose: 5,000 units Sodium Chloride (Normal Saline) 1,000 mls @ 125 mls/hr IV STAT ONE Stop: 08/22/19 03:00 Last Admin: 08/21/19 19:08 Dose: 125 mls/hr Ceftriaxone Sodium/Dextrose 1 (gm/ Premix) 50 mls @ 100 mls/hr IV ONETIME ONE Stop: 08/21/19 20:19 Last Admin: 08/21/19 20:06 Dose: 100 mls/hr Sodium Chloride (Normal Saline) 1,000 mls @ 125 mls/hr IV ASDIRECTED MARYELLEN Stop: 08/22/19 02:00 Magnesium Oxide (Magnesium Oxide) 800 mg PO ONETIME ONE Stop: 08/22/19 08:44 Last Admin: 08/22/19 09:15 Dose: 800 mg Potassium Chloride (Klor-Con M20) 40 meq PO ONETIME ONE Stop: 08/22/19 08:43 Last Admin: 08/22/19 09:17 Dose: 40 meq - Exam Quality Assessment: Supplemental Oxygen General: Oriented, Cooperative HEENT: Pupils Equal, Mucous Membr. Moist/[place] Neck: Supple, Trachea Midline Lungs: Crackles Cardiovascular: Irregular Rhythm, Tachycardia GI/Abdominal Exam: Normal Bowel Sounds Peripheral Pulses: 3+: Radial (L), Radial (R) Skin: Warm - Problem List & Annotations (1) UTI (urinary tract infection) SNOMED Code(s): 00685995 Code(s): N39.0 - URINARY TRACT INFECTION, SITE NOT SPECIFIED Status: Acute Current Visit: Yes Qualifiers: Urinary tract infection type: acute cystitis Hematuria presence: without hematuria Qualified Code(s): N30.00 - Acute cystitis without hematuria (2) Chest pain SNOMED Code(s): 89117803 Code(s): R07.9 - CHEST PAIN, UNSPECIFIED Status: Acute Current Visit: No Qualifiers: Chest pain type: unspecified Qualified Code(s): R07.9 - Chest pain, unspecified - Problem List Review Problem List Initiated/Reviewed/Updated: Yes - My Orders Last 24 Hours: My Active Orders 08/21/19 20:25 Telemetry Monitoring [Cardiac Monitoring] [RC] Q8H 08/21/19 22:11 Patient Status [ADT] Routine Oxygen Therapy [RC] PRN Up With Assistance [RC] ASDIRECTED VTE/DVT Education [RC] PER UNIT ROUTINE Vital Signs [RC] Q4H Acetaminophen [Tylenol] 650 mg PO Q4H PRN Albuterol/Ipratropium [DuoNeb 3.0-0.5 MG/3 ML] 3 ml NEB Q4HRRT PRN Glucose Management Sub Q Reflex [OM.PC] Click To Edit Resuscitation Status Routine 08/21/19 22:15 Diabetes Education [RC] Click to Edit RT Aerosol Therapy [RC] ASDIRECTED 08/21/19 22:27 Fluticasone Propionate [Flonase] 0 gm NASBOTH DAILY PRN 08/21/19 22:29 Simvastatin [Zocor] 40 mg PO BEDTIME 08/21/19 22:30 Cholecalciferol (Vitamin D3) 50,000 unit PO WEEKLY 08/21/19 22:33 Telemetry Monitoring [Cardiac Monitoring] [RC] . DIRECTED 08/21/19 22:35 Sertraline [Zoloft] 25 mg PO BEDTIME 08/21/19 23:35 Supplemental O2 [Oxygen Therapy] [RC] ASDIRECTED 08/22/19 07:00 Heparin Sodium 5,000 units SUBCUT Q8H 08/22/19 07:30 Levothyroxine 75 mcg PO ACBREAKFAST 08/22/19 12:00 Propranolol [Inderal LA] 60 mg PO DAILY predniSONE 2.5 mg PO BID 08/22/19 21:00 cefTRIAXone [Rocephin in Dextrose,Iso-Osm 1 GM/50 ML] 1 gm Premix Bag 1 bag IV Q24H 08/22/19 22:30 cefTRIAXone [Rocephin in Dextrose,Iso-Osm 1 GM/50 ML] 1 gm Premix Bag 1 bag IV ONETIME 08/22/19 Breakfast Regular Diet [DIET] - Plan Plan:: 1)Chest pain: patient comes in with c/o CP and palpitations, EKG on admissions showed NSR with occasional PVC CP resolved Today patient had episode of SVT HR in 150, EKG noted, sinus tachy with PAC which improved after administration of B dariel Electrolytes repleted TSH normal Mild crackles on exam CXR noted, no acute findings cont ASA, and statin cont spirometry Will cont to monitor, 2) UTI: UA was positive for infection Received Ceftriaxone, will cont f/u on Urine cultures Will switch to PO based on culture results cont DVT ppx NC for oxygenation PT evaluation when medically stable to ambulate Tylenol for pain
[2019-08-22] MEDS: Propranolol 60 MG Cap.ER PO SCH (12:17)
[2019-08-22] MEDS: predniSONE 5 MG Tab PO SCH ×2 (12:18→21:42)
[2019-08-22] MEDS ORDERED: Diltiazem 25 MG/5 ML SDV IVPUSH ONE (12:22)
[2019-08-22] MEDS: guaiFENesin/Dextromethorphan 100-10 MG/5 ML Soln 10 ML Cup PO PRN ×2 (12:36→21:44)
--- NOTE | 2019-08-22 14:22 | CR ---
Chest: Portable view of the chest was obtained. Comparison: Prior chest x-ray of 08/21/19. Findings: Heart size and mediastinum are normal. Minimal discoid atelectasis is seen within the lateral left costophrenic angle. Lungs otherwise are clear. Bony structures are grossly intact. Impression: Nothing acute is identified on portable chest x-ray. Diagnostic code #2 MTDD
[2019-08-22] MEDS ORDERED: cefTRIAXone 1 GM in Premix Bag 1 BAG IV SCH (21:00)
[2019-08-22] MEDS: Sertraline 25 MG Tab PO SCH (21:42)
[2019-08-22] MEDS: Simvastatin 40 MG Tab PO SCH (21:42)
[2019-08-22] MEDS ORDERED: cefTRIAXone 1 GM in Premix Bag 1 BAG IV ONE (22:30)
[2019-08-23] MEDS: Heparin Sodium 5,000 Units/ML Vial SUBCUT SCH (06:35)
[2019-08-23] MEDS: Levothyroxine 75 MCG Tab PO SCH (06:36)
[2019-08-23] MEDS: Acetaminophen 325 MG Tab PO PRN (06:36)
[2019-08-23 06:44] LABS: BLOOD UREA NITROGEN,BUN 11 mg/dL (7.0-18.0); CARBON DIOXIDE,CO2 25.5 mmol/L (21.0-32.0); CHLORIDE,CL 107 mmol/L (98-107); GLUCOSE RANDOM 97 mg/dL (74-106); SODIUM,NA 144 mmol/L (136-145)
[2019-08-23 07:37] VITALS: BP 134/69; PULSE 64
[2019-08-23] MEDS: Propranolol 60 MG Cap.ER PO SCH (08:48)
[2019-08-23] MEDS: predniSONE 5 MG Tab PO SCH (08:48)
--- NOTE | 2019-08-23 09:45 | PCM.DCSUM1 ---
Discharge Summary - Hospital Course Diagnosis: Stroke: No - Discharge Data Discharge Date: 08/23/19 Discharge Disposition: Home, Self-Care 01 Condition: Fair - Referral to Home Health Primary Care Physician: PCP Unknown - Patient Summary/Data Consults: Consultations 08/22/19 18:21 Consult to Physical Therapy [PT Evaluation and Treatment] [CONS] Routine Hospital Course: The patient is an 79-year-old lady who was admitted to acute hospitalization on August 21, 2019 secondary to chest pain and was noted to have a urinary tract infection. Patient had 2 sets of troponins which were negative. She also had an EKG was unchanged. Patient initially had been started on ceftriaxone and she had tolerated this well. Cultures obtained produced pansensitive Escherichia coli. Because of this the patient was discharged home on ciprofloxacin 500 mg by mouth twice a day. The patient continued to recover during her short course of hospitalization. The patient was also noted to have some mild crackles on auscultation examination and she had been placed on guaifenesin and codeine to help suppress her cough. This was continued as an outpatient. The patient also had been ambulating well. The patient has been recommended to follow-up with her primary care physician. The patient is to have a heart healthy diet as tolerated. She is also to have activity as tolerated. The patient has been hemodynamically stable and she is discharged from acute hospitalization with recommendations listed above. - Patient Instructions Diet: Heart Healthy Diet Activity: As Tolerated - Discharge Plan *PRESCRIPTION DRUG MONITORING PROGRAM REVIEWED*: No *COPY OF PRESCRIPTION DRUG MONITORING REPORT IN PATIENT KRISTI: No Prescriptions/Med Rec: Ciprofloxacin HCl [Cipro] 500 mg PO BID #8 tablet Dextromethorphan/guaiFENesin [Robitussin DM] 10 ml PO Q6H PRN #30 cup PRN Reason: Cough Propranolol [Inderal LA] 60 mg PO DAILY #30 cap.er Home Medications: Home Meds Levothyroxine 75 mcg PO ACBREAKFAST 09/29/15 [History] Sertraline [Zoloft] 25 mg PO BEDTIME #30 tablet 12/18/16 [Rx] predniSONE [Prednisone] 2.5 mg PO BID 12/18/16 [History] Albuterol [Ventolin HFA] 1 - 2 puff INH Q4H PRN 06/04/18 [History] Potassium Chloride [Klor-Con 10] 10 meq PO DAILY 06/04/18 [History] Simvastatin [Zocor] 40 mg PO BEDTIME 06/04/18 [History] Cholecalciferol (Vitamin D3) [Vitamin D] 50,000 unit PO WEEKLY 08/11/19 [History ] Fluticasone Propionate [Flonase] 1 inh NASBOTH DAILY PRN 08/11/19 [History] Ciprofloxacin HCl [Cipro] 500 mg PO BID #8 tablet 08/23/19 [Rx] Dextromethorphan/guaiFENesin [Robitussin DM] 10 ml PO Q6H PRN #30 cup 08/23/19 [ Rx] Propranolol [Inderal LA] 60 mg PO DAILY #30 cap.er 08/23/19 [Rx] Oxygen Therapy Mode: Room Air Patient Handouts: Propranolol extended-release capsules, Urinary Tract Infection, Adult, [id number], Nonspecific Chest Pain, [id number], Dextromethorphan oral suspension, Ciprofloxacin tablets Referrals: Chris Pinto MD, PhD [Consulting Physician] - - Discharge Summary/Plan Comment DC Time >30 min.: Yes - General Info Date of Service: 08/23/19 Admission Dx/Problem (Free Text: Admission Diagnosis/Problem Admission Diagnosis/Problem Chest pain, rule out acute myocardial infarction Subjective Update: Patient is doing better today. She feels like she can go home today. Functional Status: Reports: Pain Controlled - Review of Systems General: Reports: No Symptoms HEENT: Reports: No Symptoms Pulmonary: Reports: No Symptoms Cardiovascular: Reports: No Symptoms Gastrointestinal: Reports: No Symptoms Genitourinary: Reports: No Symptoms Musculoskeletal: Reports: No Symptoms Skin: Reports: No Symptoms Neurological: Reports: No Symptoms Psychiatric: Reports: No Symptoms - Patient Data Vitals - Most Recent: Last Vital Signs Temp 36.3 C 08/23/19 07:36 Pulse 64 08/23/19 07:36 Resp 18 08/23/19 07:36 BP 134/69 08/23/19 07:36 Pulse Ox 96 08/23/19 07:36 Orthostatic Blood Pressure [ 119/65 Standing] Orthostatic Blood Pressure [ 122/59 Sitting] Orthostatic Blood Pressure [ 123/57 Supine] Weight - Most Recent: 90.582 kg I&O - Last 24 hours: Intake & Output 08/22/19 08/23/19 08/23/19 22:59 06:59 14:59 Intake Total 650 700 Output Total 1250 1050 Balance -600 -350 Lab Results - Last 24 hrs: Laboratory Results - last 24 hr 08/23/19 08/23/19 Range/Units 06:15 06:15 WBC 10.10 (4.0-11.0) K/uL RBC 3.84 L (4.30-5.90) M/uL Hgb 12.5 (12.0-16.0) g/dL Hct 39.6 (36.0-46.0) % MCV 103.1 H (80.0-98.0) fL MCH 32.6 H (27.0-32.0) pg MCHC 31.6 (31.0-37.0) g/dL RDW Std Deviation 49.5 (28.0-62.0) fl RDW Coeff of Tray 13 (11.0-15.0) % Plt Count 261 (150-400) K/uL MPV 9.70 (7.40-12.00) fL Neut % (Auto) 69.3 (48.0-80.0) % Lymph % (Auto) 16.6 (16.0-40.0) % [place] % (Auto) 9.8 (0.0-15.0) % Eos % (Auto) 4.1 (0.0-7.0) % Baso % (Auto) 0.2 (0.0-1.5) % Neut # (Auto) 7.0 H (1.4-5.7) K/uL Lymph # (Auto) 1.7 (0.6-2.4) K/uL [place] # (Auto) 1.0 H (0.0-0.8) K/uL Eos # (Auto) 0.4 (0.0-0.7) K/uL Baso # (Auto) 0.0 (0.0-0.1) K/uL Nucleated RBC % 0.0 /100WBC Nucleated RBCs # 0 K/uL Sodium 144 (136-145) mmol/L Potassium 4.0 (3.5-5.1) mmol/L Chloride 107 (98-107) mmol/L Carbon Dioxide 25.5 (21.0-32.0) mmol/L BUN 11 (7.0-18.0) mg/dL Creatinine 0.8 (0.6-1.0) mg/dL Est Cr Clr Drug Dosing 44.36 mL/min Estimated GFR (MDRD) > 60.0 ml/min Glucose 97 (74-106) mg/dL Calcium 8.2 L (8.5-10.1) mg/dL Phosphorus 3.0 (2.6-4.7) mg/dL Magnesium 1.9 (1.8-2.4) mg/dL OLIVIER Results - Last 24 hrs: Microbiology 08/21/19 19:18 Urine Culture - Final Urine, Clean Catch Escherichia Coli Normal Urogenital Ana Med Orders - Current: Current Medications Acetaminophen (Tylenol) 650 mg PO Q4H PRN PRN Reason: Pain (Mild 1-3)/fever Last Admin: 08/23/19 06:36 Dose: 650 mg Albuterol/Ipratropium (Duoneb 3.0-0.5 Mg/3 Ml) 3 ml NEB Q4HRRT PRN PRN Reason: Shortness Of Breath/wheezing Last Admin: 08/22/19 10:51 Dose: 3 ml Fluticasone Propionate (Flonase) 0 gm NASBOTH DAILY PRN PRN Reason: Allergies Guaifenesin/Dextromethorphan (Robitussin Dm) 10 ml PO Q6H PRN PRN Reason: Cough Last Admin: 08/22/19 21:44 Dose: 10 ml Heparin Sodium (Porcine) (Heparin Sodium) 5,000 units SUBCUT Q8H [facility] Last Admin: 08/23/19 06:35 Dose: 5,000 units Ceftriaxone Sodium/Dextrose 1 (gm/ Premix) 50 mls @ 100 mls/hr IV Q24H [facility] Last Admin: 08/22/19 21:46 Dose: 100 mls/hr Levothyroxine Sodium (Levothyroxine) 75 mcg PO ACBREAKFAST [facility] Last Admin: 08/23/19 06:36 Dose: 75 mcg Prednisone (Prednisone) 2.5 mg PO BID [facility] Last Admin: 08/23/19 08:48 Dose: 2.5 mg Propranolol HCl (Inderal La) 60 mg PO DAILY [facility] Last Admin: 08/23/19 08:48 Dose: 60 mg Sertraline HCl (Zoloft) 25 mg PO BEDTIME [facility] Last Admin: 08/22/19 21:42 Dose: 25 mg Simvastatin (Zocor) 40 mg PO BEDTIME [facility]ARYELLEN Last Admin: 08/22/19 21:42 Dose: 40 mg Sodium Chloride (Saline Flush) 10 ml FLUSH ASDIRECTED PRN PRN Reason: Keep Vein Open Sodium Chloride (Saline Flush) 2.5 ml FLUSH ASDIRECTED PRN PRN Reason: Keep Vein Open Discontinued Medications Aspirin (Aspirin) 324 mg PO ONETIME ONE Stop: 08/21/19 18:53 Last Admin: 08/21/19 18:58 Dose: 324 mg Diltiazem HCl (Diltiazem) 25 mg IVPUSH ONETIME ONE Stop: 08/22/19 12:23 Last Admin: 08/22/19 14:23 Dose: Not Given Heparin Sodium (Porcine) (Heparin Sodium) 5,000 units SUBCUT ONETIME ONE Stop: 08/21/19 22:31 Last Admin: 08/21/19 23:07 Dose: 5,000 units Sodium Chloride (Normal Saline) 1,000 mls @ 125 mls/hr IV STAT ONE Stop: 08/22/19 03:00 Last Admin: 08/21/19 19:08 Dose: 125 mls/hr Ceftriaxone Sodium/Dextrose 1 (gm/ Premix) 50 mls @ 100 mls/hr IV ONETIME ONE Stop: 08/21/19 20:19 Last Admin: 08/21/19 20:06 Dose: 100 mls/hr Ceftriaxone Sodium/Dextrose 1 (gm/ Premix) 50 mls @ 100 mls/hr IV ONETIME ONE Stop: 08/22/19 22:59 Sodium Chloride (Normal Saline) 1,000 mls @ 125 mls/hr IV [facility] Stop: 08/22/19 02:00 Magnesium Oxide (Magnesium Oxide) 800 mg PO ONETIME ONE Stop: 08/22/19 08:44 Last Admin: 08/22/19 09:15 Dose: 800 mg Potassium Chloride (Klor-Con M20) 40 meq PO ONETIME ONE Stop: 08/22/19 08:43 Last Admin: 08/22/19 09:17 Dose: 40 meq - Exam Quality Assessment: Denies: Supplemental Oxygen General: Reports: Alert, Oriented, Cooperative, No Acute Distress HEENT: Reports: Pupils Equal, Pupils Reactive, EOMI, Mucous Membr. Moist/[place] Neck: Reports: Supple, Trachea Midline Lungs: Reports: Clear to Auscultation, Normal Respiratory Effort Cardiovascular: Reports: Regular Rate, Regular Rhythm GI/Abdominal Exam: Normal Bowel Sounds, Soft, No Distention Back Exam: Reports: Normal Inspection, Full Range of Motion Extremities: Normal Inspection, No Pedal Edema Skin: Reports: Warm, Dry, Intact Neurological: Reports: No New Focal Deficit Psy/Mental Status: Reports: Alert, Normal Affect, Normal Mood
== END 2019-08-23 12:30 | disposition home or self-care (01) ==
LOC: MW.ED 18:48 → MW.MS 20:27
PROVIDERS: ADMIT Student in an Organized Health Care Education/Training Program; ATTEND Student in an Organized Health Care Education/Training Program
DX: R07.9 Chest pain, unspecified (principal); N39.0 Urinary tract infection, site not specified; E78.00 Pure hypercholesterolemia, unspecified; J45.909 Unspecified asthma, uncomplicated; E03.9 Hypothyroidism, unspecified; E66.9 Obesity, unspecified; M35.3 Polymyalgia rheumatica; Z79.899 Other long term (current) drug therapy; Z79.52 Long term (current) use of systemic steroids; Z68.36 Body mass index [BMI] 36.0-36.9, adult
CPT/HCPCS: 36415; 71045; 80048; 80053; 80061; 81001; 83036; 83735; 84100; 84443; 84484; 85025; 87086; 87088; 87186; 87804; 93005; 94640; 96361; 96365; 99285; A9270; J0696; J1644; J7040; J7512; 96372; 96376; 99284; G0378; J7620-GY

== ENCOUNTER 2019-09-10 20:36 | Observation (INO) | payer MEDICARE, OTHER ==
[2019-09-10] MEDS ORDERED: Sodium Chloride 0.9% 10 ML Syringe FLUSH PRN (20:44)
[2019-09-10] MEDS ORDERED: Sodium Chloride 0.9% 2.5 ML Syringe FLUSH PRN (20:44)
[2019-09-10] MEDS ORDERED: Sodium Chloride 0.9% 1,000 ML IV ONE (20:47)
--- NOTE | 2019-09-10 20:49 | EDM.PDOC ---
ED HPI GENERAL MEDICAL PROBLEM - General Chief Complaint: Chest Pain Stated Complaint: HEART ISSUES Time Seen by Provider: 09/10/19 20:49 Source of Information: Reports: Patient History Limitations: Reports: No Limitations - History of Present Illness INITIAL COMMENTS - FREE TEXT/NARRATIVE: HISTORY AND PHYSICAL: History of present illness: Patient is an 79-year-old female presents to the ED with complaint of chest pain and shortness of breath. She states she felt a chest pain and pressure around 5:30pm this evening, she states this has since resolved but she is still feeling short of breath. She was admitted to the hospital 08/21 for rule out ACS as well as UTI. She states she was sick at that time with a cough that has since resolved. She denies nausea, vomiting, fevers, chills, abdominal pain. Review of systems: As per history of present illness and below otherwise all systems reviewed and negative. Past medical history: As per history of present illness and as reviewed below otherwise noncontributory. Surgical history: As per history of present illness and as reviewed below otherwise noncontributory. Social history: No reported history of drug or alcohol abuse. Family history: As per history of present illness and as reviewed below otherwise noncontributory. Physical exam: General: Patient sitting comfortably in no acute distress and nontoxic appearing HEENT: Atraumatic, normocephalic, pupils reactive, negative for conjunctival pallor or scleral icterus, mucous membranes moist, throat clear, neck supple, nontender, trachea midline. No meningeal signs. Lungs: Clear to auscultation, breath sounds equal bilaterally, chest nontender. Heart: S1S2, regular, negative for clicks, rubs, or overt murmur. Abdomen: Soft, nondistended, nontender. Negative for masses or hepatosplenomegaly. Negative for costovertebral tenderness. No rigidity, rebound , guarding. Pelvis: Stable nontender. Genitourinary: Deferred. Rectal: Deferred. Extremities: Atraumatic, negative for cords or calf pain. Neurovascular unremarkable. Neuro: Awake, alert, oriented. Cranial nerves II through XII unremarkable. Cerebellum unremarkable. Motor and sensory unremarkable throughout. Exam nonfocal. Notes: Diagnostics: CBC, CMP, troponin, EKG, CXR, UA Therapeutics: 1L NS IV 1g Rocephin IV Prescriptions: Impression: Chest pain r/o ACS, UTI Plan: Discussed with Dr. Howell, patient will be admitted for chest pain r/o ACS and UTI Definitive disposition and diagnosis as appropriate pending reevaluation and review of above. chest Pain Score (Numeric/FACES): 7 - Related Data Allergies Allergy/AdvReac Type Severity Reaction Status Date / Time No Known Allergies Allergy Verified 09/10/19 20:45 Home Meds: Home Meds Levothyroxine 75 mcg PO DAILY 09/29/15 [History] predniSONE [Prednisone] 2.5 mg PO BID 12/18/16 [History] Albuterol [Ventolin HFA] 1 - 2 puff INH Q4H PRN 06/04/18 [History] Simvastatin [Zocor] 40 mg PO BEDTIME 06/04/18 [History] Cholecalciferol (Vitamin D3) [Vitamin D] 50,000 unit PO WEEKLY 08/11/19 [History ] Propranolol [Inderal LA] 60 mg PO DAILY #30 cap.er 08/23/19 [Rx] Budesonide/Formoterol Fumarate [Symbicort 80-4.5 MCG] 2 puff INH BID 09/10/19 [ History] DULoxetine [Cymbalta] 60 mg PO DAILY 09/10/19 [History] Doxycycline [Vibramycin] 100 mg PO Q12H 09/10/19 [History] Folic Acid 0.4 mg PO DAILY 09/10/19 [History] Past Medical History HEENT History: Reports: Allergic Rhinitis Other HEENT History: wears glasses Cardiovascular History: Reports: Arrhythmia, High Cholesterol Other Cardiovascular History: Occasional palpitations, 'do not know if it's nerves or what" Respiratory History: Reports: Asthma Gastrointestinal History: Reports: None Other Gastrointestinal History: Indigestion, pain to back Genitourinary History: Reports: None Other Genitourinary History: Urgency at times, Recent discovery of abnormality on one of my kidneys [employer] History: Reports: Musculoskeletal History: Reports: None Neurological History: Reports: Other (See Below) Other Neuro History: Tremor Psychiatric History: Reports: None Other Psychiatric History: Get a little anxious on occasion Endocrine/Metabolic History: Reports: Hypothyroidism, Obesity/BMI 30+ Other Endocrine/Metabolic History: hypothyroidism Hematologic History: Reports: None Immunologic History: Reports: None Oncologic (Cancer) History: Reports: None Dermatologic History: Reports: None - Infectious Disease History Infectious Disease History: Reports: Chicken Pox, Mumps - Past Surgical History Head Surgeries/Procedures: Reports: None HEENT Surgical History: Reports: None Cardiovascular Surgical History: Reports: None Respiratory Surgical History: Reports: None GI Surgical History: Reports: Cholecystectomy, Colonoscopy, Other (See Below) Other GI Surgeries/Procedures: bowel surgery Musculoskeletal Surgical History: Reports: Other (See Below) 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 ED EXAM, GENERAL - Physical Exam Exam: See Below (see dictation) Course - Vital Signs Last Recorded V/S: Last Vital Signs Temp 97.6 F 09/10/19 20:40 Pulse 73 09/10/19 22:15 Resp 20 09/10/19 22:15 BP 126/71 09/10/19 22:15 Pulse Ox 96 09/10/19 22:15 Orthostatic Blood Pressure [ 118/82 Standing] Orthostatic Blood Pressure [ 118/83 Sitting] Orthostatic Blood Pressure [ 112/74 Supine] - Orders/Labs/Meds Orders: Active Orders 24 hr Category Date Time Status Admission Status [Patient Status] [ADT] Stat ADT 09/10/19 22:32 Ordered Cardiac Monitoring [RC] . DIRECTED Care 09/10/19 20:44 Active EKG Documentation Completion [RC] STAT Care 09/10/19 20:44 Active CULTURE URINE [RM] Stat Lab 09/10/19 22:04 Received Sodium Chloride 0.9% [Saline Flush] Med 09/10/19 20:44 Active 10 ml FLUSH ASDIRECTED PRN Sodium Chloride 0.9% [Saline Flush] Med 09/10/19 20:44 Active 2.5 ml FLUSH ASDIRECTED PRN cefTRIAXone [Rocephin in Dextrose,Iso-Osm 1 GM/50 ML] 1 Med 09/10/19 22:26 Ordered gm Premix Bag 1 bag IV ONETIME Saline Lock Insert [OM.PC] Stat Oth 09/10/19 20:44 Ordered Medication Orders Ceftriaxone Sodium/Dextrose 1 (gm/ Premix) 50 mls @ 100 mls/hr IV ONETIME ONE Stop: 09/10/19 22:55 Sodium Chloride (Saline Flush) 10 ml FLUSH ASDIRECTED PRN PRN Reason: Keep Vein Open Sodium Chloride (Saline Flush) 2.5 ml FLUSH ASDIRECTED PRN PRN Reason: Keep Vein Open Labs: Laboratory Tests 09/10/19 09/10/19 09/10/19 Range/Units 20:45 20:45 20:45 WBC 8.45 (4.0-11.0) K/uL RBC 3.99 L (4.30-5.90) M/uL Hgb 13.4 (12.0-16.0) g/dL Hct 40.4 (36.0-46.0) % MCV 101.3 H (80.0-98.0) fL MCH 33.6 H (27.0-32.0) pg MCHC 33.2 (31.0-37.0) g/dL RDW Std Deviation 46.9 (28.0-62.0) fl RDW Coeff of Tray 13 (11.0-15.0) % Plt Count 289 (150-400) K/uL MPV 9.80 (7.40-12.00) fL Neut % (Auto) 51.0 (48.0-80.0) % Lymph % (Auto) 32.4 (16.0-40.0) % Lane % (Auto) 14.0 (0.0-15.0) % Eos % (Auto) 2.4 (0.0-7.0) % Baso % (Auto) 0.2 (0.0-1.5) % Neut # (Auto) 4.3 (1.4-5.7) K/uL Lymph # (Auto) 2.7 H (0.6-2.4) K/uL Lane # (Auto) 1.2 H (0.0-0.8) K/uL Eos # (Auto) 0.2 (0.0-0.7) K/uL Baso # (Auto) 0.0 (0.0-0.1) K/uL Nucleated RBC % 0.0 /100WBC Nucleated RBCs # 0 K/uL INR 0.94 Sodium 142 (136-145) mmol/L Potassium 3.6 (3.5-5.1) mmol/L Chloride 108 H (98-107) mmol/L Carbon Dioxide 21.0 (21.0-32.0) mmol/L BUN 22 H (7.0-18.0) mg/dL Creatinine 1.0 (0.6-1.0) mg/dL Est Cr Clr Drug Dosing 37.12 mL/min Estimated GFR (MDRD) 53.3 ml/min Glucose 103 (74-106) mg/dL Calcium 9.0 (8.5-10.1) mg/dL Total Bilirubin 0.4 (0.2-1.0) mg/dL AST 14 L (15-37) IU/L ALT 17 (14-63) IU/L Alkaline Phosphatase 61 (46-116) U/L Troponin I < 0.050 (0.000-0.056) ng/mL Total Protein 7.2 (6.4-8.2) g/dL Albumin 3.5 (3.4-5.0) g/dL Globulin 3.7 (2.6-4.0) g/dL Albumin/Globulin Ratio 0.9 (0.9-1.6) Urine Color Urine Appearance Urine pH (5.0-8.0) Ur Specific [place] (1.001-1.035) Urine Protein (NEGATIVE) mg/dL Urine Glucose (UA) (NEGATIVE) mg/dL Urine Ketones (NEGATIVE) mg/dL Urine Occult Blood (NEGATIVE) Urine Nitrite (NEGATIVE) Urine Bilirubin (NEGATIVE) Urine Urobilinogen (<2.0) EU/dL Ur Leukocyte Esterase (NEGATIVE) Urine RBC (0-2/HPF) Urine WBC (0-5/HPF) Ur Epithelial Cells (NONE-FEW) Urine Bacteria (NEGATIVE) Urine Mucus (NONE-MOD) 09/10/19 Range/Units 22:04 WBC (4.0-11.0) K/uL RBC (4.30-5.90) M/uL Hgb (12.0-16.0) g/dL Hct (36.0-46.0) % MCV (80.0-98.0) fL MCH (27.0-32.0) pg MCHC (31.0-37.0) g/dL RDW Std Deviation (28.0-62.0) fl RDW Coeff of Tray (11.0-15.0) % Plt Count (150-400) K/uL MPV (7.40-12.00) fL Neut % (Auto) (48.0-80.0) % Lymph % (Auto) (16.0-40.0) % Lane % (Auto) (0.0-15.0) % Eos % (Auto) (0.0-7.0) % Baso % (Auto) (0.0-1.5) % Neut # (Auto) (1.4-5.7) K/uL Lymph # (Auto) (0.6-2.4) K/uL Lane # (Auto) (0.0-0.8) K/uL Eos # (Auto) (0.0-0.7) K/uL Baso # (Auto) (0.0-0.1) K/uL Nucleated RBC % /100WBC Nucleated RBCs # K/uL INR Sodium (136-145) mmol/L Potassium (3.5-5.1) mmol/L Chloride (98-107) mmol/L Carbon Dioxide (21.0-32.0) mmol/L BUN (7.0-18.0) mg/dL Creatinine (0.6-1.0) mg/dL Est Cr Clr Drug Dosing mL/min Estimated GFR (MDRD) ml/min Glucose (74-106) mg/dL Calcium (8.5-10.1) mg/dL Total Bilirubin (0.2-1.0) mg/dL AST (15-37) IU/L ALT (14-63) IU/L Alkaline Phosphatase (46-116) U/L Troponin I (0.000-0.056) ng/mL Total Protein (6.4-8.2) g/dL Albumin (3.4-5.0) g/dL Globulin (2.6-4.0) g/dL Albumin/Globulin Ratio (0.9-1.6) Urine Color YELLOW Urine Appearance CLEAR Urine pH 5.5 (5.0-8.0) Ur Specific [place] 1.020 (1.001-1.035) Urine Protein NEGATIVE (NEGATIVE) mg/dL Urine Glucose (UA) NEGATIVE (NEGATIVE) mg/dL Urine Ketones NEGATIVE (NEGATIVE) mg/dL Urine Occult Blood TRACE-LYSED H (NEGATIVE) Urine Nitrite NEGATIVE (NEGATIVE) Urine Bilirubin NEGATIVE (NEGATIVE) Urine Urobilinogen 0.2 (<2.0) EU/dL Ur Leukocyte Esterase LARGE H (NEGATIVE) Urine RBC NONE SEEN (0-2/HPF) Urine WBC 5-8 (0-5/HPF) Ur Epithelial Cells FEW (NONE-FEW) Urine Bacteria FEW (NEGATIVE) Urine Mucus LIGHT (NONE-MOD) Meds: Medications Generic Name Dose Route Start Last Admin Trade Name Freq PRN Reason Stop Dose Admin Ceftriaxone Sodium/Dextrose 1 50 mls @ 100 mls/hr 09/10/19 22:26 gm/ Premix IV 09/10/19 22:55 ONETIME ONE Sodium Chloride 10 ml 09/10/19 20:44 Saline Flush FLUSH ASDIRECTED PRN Keep Vein Open Sodium Chloride 2.5 ml 09/10/19 20:44 Saline Flush FLUSH ASDIRECTED PRN Keep Vein Open Discontinued Medications Generic Name Dose Route Start Last Admin Trade Name Freq PRN Reason Stop Dose Admin Sodium Chloride 1,000 mls @ 999 mls/hr 09/10/19 20:47 09/10/19 20:50 Normal Saline IV 09/10/19 21:47 999 mls/hr STAT ONE Administration Departure - Departure Time of Disposition: 22:34 Disposition: Refer to Observation Condition: Good Clinical Impression: Chest pain Qualifiers: Chest pain type: unspecified Qualified Code(s): R07.9 - Chest pain, unspecified UTI (urinary tract infection) Qualifiers: Urinary tract infection type: acute cystitis Hematuria presence: without hematuria Qualified Code(s): N30.00 - Acute cystitis without hematuria Referrals: PCP,None [Primary Care Provider] - Forms: ED Department Discharge - My Orders Last 24 Hours: My Active Orders 09/10/19 20:44 Cardiac Monitoring [RC] . DIRECTED EKG Documentation Completion [RC] STAT Sodium Chloride 0.9% [Saline Flush] 10 ml FLUSH ASDIRECTED PRN Sodium Chloride 0.9% [Saline Flush] 2.5 ml FLUSH ASDIRECTED PRN Saline Lock Insert [OM.PC] Stat 09/10/19 22:04 CULTURE URINE [RM] Stat 09/10/19 22:26 cefTRIAXone [Rocephin in Dextrose,Iso-Osm 1 GM/50 ML] 1 gm Premix Bag 1 bag IV ONETIME 09/10/19 22:32 Admission Status [Patient Status] [ADT] Stat - Assessment/Plan Last 24 Hours: My Active Orders 09/10/19 20:44 Cardiac Monitoring [RC] . DIRECTED EKG Documentation Completion [RC] STAT Sodium Chloride 0.9% [Saline Flush] 10 ml FLUSH ASDIRECTED PRN Sodium Chloride 0.9% [Saline Flush] 2.5 ml FLUSH ASDIRECTED PRN Saline Lock Insert [OM.PC] Stat 09/10/19 22:04 CULTURE URINE [RM] Stat 09/10/19 22:26 cefTRIAXone [Rocephin in Dextrose,Iso-Osm 1 GM/50 ML] 1 gm Premix Bag 1 bag IV ONETIME 09/10/19 22:32 Admission Status [Patient Status] [ADT] Stat
--- NOTE | 2019-09-10 21:11 | CR ---
INDICATION: Chest pain TECHNIQUE: Chest 1 view. COMPARISON: 09/01/2019 FINDINGS: Cardiovascular and mediastinum: Heart size and vasculature are normal in caliber and appearance. Mediastinum is within normal limits. Lungs and pleural space: Stable atelectasis versus scarring left lower lobe. No sign of infiltrate or mass. No sign of pleural effusion. No pneumothorax. Bones and soft tissues: No significant findings. IMPRESSION: Unremarkable chest. Dictated by Chad Rashid MD @ 09/10/2019 9:09:34 PM Dictated by: Chad Rashid MD @ 09/10/2019 21:09:38 (Electronically Signed)
[2019-09-10 21:16] LABS: BLOOD UREA NITROGEN,BUN 22 mg/dL (7.0-18.0); CHLORIDE,CL 108 mmol/L (98-107); GLUCOSE RANDOM 103 mg/dL (74-106); POTASSIUM,K 3.6 mmol/L (3.5-5.1); SODIUM,NA 142 mmol/L (136-145)
[2019-09-10] MEDS ORDERED: cefTRIAXone 1 GM in Premix Bag 1 BAG IV ONE (22:26)
[2019-09-10] MEDS ORDERED: Morphine 2 MG/ML Syringe IVPUSH PRN (23:54)
[2019-09-11] MEDS ORDERED: Albuterol 8 GM Inhaler INH PRN (08:03)
[2019-09-11] MEDS ORDERED: predniSONE 5 MG Tab PO SCH (09:00)
[2019-09-11] MEDS ORDERED: BUDESONIDE INH SCH (09:00)
[2019-09-11] MEDS ORDERED: DULoxetine 60 MG Cap PO SCH (09:00)
[2019-09-11] MEDS ORDERED: Levothyroxine 75 MCG Tab PO SCH (09:00)
[2019-09-11] MEDS ORDERED: FORMOTEROL FUMARATE INH SCH (09:00)
[2019-09-11] MEDS ORDERED: Propranolol 60 MG Cap.ER PO SCH (09:00)
[2019-09-11] MEDS ORDERED: Acetaminophen 325 MG Tab PO PRN (09:26)
[2019-09-11] MEDS ORDERED: Cholecalciferol (Vitamin D3) 25 MCG Tab PO SCH (09:45)
[2019-09-11] MEDS ORDERED: Potassium Chloride 20 MEQ Tab.ER PO ONE (10:43)
[2019-09-11] MEDS ORDERED: Magnesium Sulfate/Water 2 GM in Premix Bag 1 BAG IV ONE (12:01)
--- NOTE | 2019-09-11 12:12 | PCM.HP.2 ---
H&P History of Present Illness - General Date of Service: 09/11/19 Admit Problem/Dx: Admission Diagnosis/Problem Admission Diagnosis/Problem Chest pain - History of Present Illness Initial Comments - Free Text/Narative: Patient is a 79 year old femal with past medical history of hypothyroidism, polymyalgia rheumatica, allergic rhinitis who presents with five hour history palpitations and chest pressure. She has a three visits this month for palpitations. During prior hospital stays she was treated for a UTI and ruled out for acute coronary syndrome with serial negative cardiac enzymes. During her prior stays she has noted to have episodes of supraventricular tachycardia and bradycardia. She is on propanolol 60 mg daily at home. When she came to the ER last night she was noted to have a heart rate of 140 bpm with an atrial rhythm. She was given a liter of fluids with normalization of her heart rate. She was also given Rocephin for possible UTI based on UA. Prior cultures have grown carter sensitive E.coli. Headache Pain Score (Numeric/FACES): 3 chest Pain Score (Numeric/FACES): 3 - Related Data Allergies/Adverse Reactions: Allergies Allergy/AdvReac Type Severity Reaction Status Date / Time No Known Allergies Allergy Verified 09/10/19 23:18 Home Medications: Home Meds Levothyroxine 75 mcg PO DAILY 09/29/15 [History] predniSONE [Prednisone] 2.5 mg PO BID 12/18/16 [History] Albuterol [Ventolin HFA] 1 - 2 puff INH Q4H PRN 06/04/18 [History] Simvastatin [Zocor] 40 mg PO BEDTIME 06/04/18 [History] Cholecalciferol (Vitamin D3) [Vitamin D] 50,000 unit PO WEEKLY 08/11/19 [History ] Propranolol [Inderal LA] 60 mg PO DAILY #30 cap.er 08/23/19 [Rx] Budesonide/Formoterol Fumarate [Symbicort 80-4.5 MCG] 2 puff INH BID 09/10/19 [ History] DULoxetine [Cymbalta] 60 mg PO DAILY 09/10/19 [History] Diclofenac Sodium [Voltaren 1% Gel] 1 gm TOP TID 09/10/19 [History] Folic Acid 0.4 mg PO DAILY 09/10/19 [History] Sulfamethoxazole/Trimethoprim [Bactrim Ds Tablet] 1 each PO BID #14 tablet 09/11 [Rx] Past Medical History HEENT History: Reports: Allergic Rhinitis Other HEENT History: wears glasses Cardiovascular History: Reports: Arrhythmia, High Cholesterol Other Cardiovascular History: Occasional palpitations, 'do not know if it's nerves or what" Respiratory History: Reports: Asthma Gastrointestinal History: Reports: None Other Gastrointestinal History: Indigestion, pain to back Genitourinary History: Reports: None Other Genitourinary History: Urgency at times, Recent discovery of abnormality on one of my kidneys PACKAGE PICK UP History: Reports: Musculoskeletal History: Reports: None Neurological History: Reports: Other (See Below) Other Neuro History: Tremor Psychiatric History: Reports: None Other Psychiatric History: Get a little anxious on occasion Endocrine/Metabolic History: Reports: Hypothyroidism, Obesity/BMI 30+ Other Endocrine/Metabolic History: hypothyroidism Hematologic History: Reports: None Immunologic History: Reports: None Oncologic (Cancer) History: Reports: None Dermatologic History: Reports: None - Infectious Disease History Infectious Disease History: Reports: Chicken Pox, Measles, Mumps - Past Surgical History Head Surgeries/Procedures: Reports: None HEENT Surgical History: Reports: None Cardiovascular Surgical History: Reports: None Respiratory Surgical History: Reports: None GI Surgical History: Reports: Cholecystectomy, Colonoscopy, Other (See Below) Other GI Surgeries/Procedures: bowel surgery Musculoskeletal Surgical History: Reports: Other (See Below) Other Musculoskeletal Surgeries/Procedures:: Polymyalgi rhemitatica Social & Family History - Family History Family Medical History: Noncontributory Cardiac: Reports: Other (See Below) Other Cardiac Family History: open heart surgery-mother OBGYN: Reports: Oncologic: Reports: Colon Other Oncologic Family History: Father had colon cancer - Tobacco Use Smoking Status *Q: Never Smoker Second Hand Smoke Exposure: No - Caffeine Use Caffeine Use: Reports: Coffee Caffeine Use Comment: 2 cups a day - Recreational Drug Use Recreational Drug Use: No H&P Review of Systems - Review of Systems: Review Of Systems: ROS reveals no pertinent complaints other than HPI. Exam - Exam Exam: See Below - Vital Signs Vital Signs: Last Vital Signs Temp 36.6 C 09/11/19 07:48 Pulse 64 09/11/19 07:48 Resp 18 09/11/19 07:48 BP 113/63 09/11/19 07:48 Pulse Ox 96 09/11/19 07:48 Orthostatic Blood Pressure [ 118/82 Standing] Orthostatic Blood Pressure [ 118/83 Sitting] Orthostatic Blood Pressure [ 112/74 Supine] Weight: 90.809 kg - Exam General: Alert, Oriented Lungs: Clear to Auscultation, Normal Respiratory Effort Cardiovascular: Regular Rate, Regular Rhythm GI/Abdominal Exam: Normal Bowel Sounds, Soft, Non-Tender Extremities: Non-Tender, No Pedal Edema Skin: Warm, Dry, Intact - Patient Data Lab Results Last 24 hrs: Laboratory Results - last 24 hr 09/10/19 09/10/19 09/10/19 Range/Units 20:45 20:45 20:45 WBC 8.45 (4.0-11.0) K/uL RBC 3.99 L (4.30-5.90) M/uL Hgb 13.4 (12.0-16.0) g/dL Hct 40.4 (36.0-46.0) % MCV 101.3 H (80.0-98.0) fL MCH 33.6 H (27.0-32.0) pg MCHC 33.2 (31.0-37.0) g/dL RDW Std Deviation 46.9 (28.0-62.0) fl RDW Coeff of Tray 13 (11.0-15.0) % Plt Count 289 (150-400) K/uL MPV 9.80 (7.40-12.00) fL Neut % (Auto) 51.0 (48.0-80.0) % Lymph % (Auto) 32.4 (16.0-40.0) % [place] % (Auto) 14.0 (0.0-15.0) % Eos % (Auto) 2.4 (0.0-7.0) % Baso % (Auto) 0.2 (0.0-1.5) % Neut # (Auto) 4.3 (1.4-5.7) K/uL Lymph # (Auto) 2.7 H (0.6-2.4) K/uL [place] # (Auto) 1.2 H (0.0-0.8) K/uL Eos # (Auto) 0.2 (0.0-0.7) K/uL Baso # (Auto) 0.0 (0.0-0.1) K/uL Nucleated RBC % 0.0 /100WBC Nucleated RBCs # 0 K/uL INR 0.94 Sodium 142 (136-145) mmol/L Potassium 3.6 (3.5-5.1) mmol/L Chloride 108 H (98-107) mmol/L Carbon Dioxide 21.0 (21.0-32.0) mmol/L BUN 22 H (7.0-18.0) mg/dL Creatinine 1.0 (0.6-1.0) mg/dL Est Cr Clr Drug Dosing 37.12 mL/min Estimated GFR (MDRD) 53.3 ml/min Glucose 103 (74-106) mg/dL Calcium 9.0 (8.5-10.1) mg/dL Magnesium (1.8-2.4) mg/dL Total Bilirubin 0.4 (0.2-1.0) mg/dL AST 14 L (15-37) IU/L ALT 17 (14-63) IU/L Alkaline Phosphatase 61 (46-116) U/L Troponin I < 0.050 (0.000-0.056) ng/mL Total Protein 7.2 (6.4-8.2) g/dL Albumin 3.5 (3.4-5.0) g/dL Globulin 3.7 (2.6-4.0) g/dL Albumin/Globulin Ratio 0.9 (0.9-1.6) Urine Color Urine Appearance Urine pH (5.0-8.0) Ur Specific [place] (1.001-1.035) Urine Protein (NEGATIVE) mg/dL Urine Glucose (UA) (NEGATIVE) mg/dL Urine Ketones (NEGATIVE) mg/dL Urine Occult Blood (NEGATIVE) Urine Nitrite (NEGATIVE) Urine Bilirubin (NEGATIVE) Urine Urobilinogen (<2.0) EU/dL Ur Leukocyte Esterase (NEGATIVE) Urine RBC (0-2/HPF) Urine WBC (0-5/HPF) Ur Epithelial Cells (NONE-FEW) Urine Bacteria (NEGATIVE) Urine Mucus (NONE-MOD) 09/10/19 09/11/19 09/11/19 Range/Units 22:04 02:45 08:46 WBC (4.0-11.0) K/uL RBC (4.30-5.90) M/uL Hgb (12.0-16.0) g/dL Hct (36.0-46.0) % MCV (80.0-98.0) fL MCH (27.0-32.0) pg MCHC (31.0-37.0) g/dL RDW Std Deviation (28.0-62.0) fl RDW Coeff of Tray (11.0-15.0) % Plt Count (150-400) K/uL MPV (7.40-12.00) fL Neut % (Auto) (48.0-80.0) % Lymph % (Auto) (16.0-40.0) % [place] % (Auto) (0.0-15.0) % Eos % (Auto) (0.0-7.0) % Baso % (Auto) (0.0-1.5) % Neut # (Auto) (1.4-5.7) K/uL Lymph # (Auto) (0.6-2.4) K/uL [place] # (Auto) (0.0-0.8) K/uL Eos # (Auto) (0.0-0.7) K/uL Baso # (Auto) (0.0-0.1) K/uL Nucleated RBC % /100WBC Nucleated RBCs # K/uL INR Sodium (136-145) mmol/L Potassium (3.5-5.1) mmol/L Chloride (98-107) mmol/L Carbon Dioxide (21.0-32.0) mmol/L BUN (7.0-18.0) mg/dL Creatinine (0.6-1.0) mg/dL Est Cr Clr Drug Dosing mL/min Estimated GFR (MDRD) ml/min Glucose (74-106) mg/dL Calcium (8.5-10.1) mg/dL Magnesium (1.8-2.4) mg/dL Total Bilirubin (0.2-1.0) mg/dL AST (15-37) IU/L ALT (14-63) IU/L Alkaline Phosphatase (46-116) U/L Troponin I < 0.050 < 0.050 (0.000-0.056) ng/mL Total Protein (6.4-8.2) g/dL Albumin (3.4-5.0) g/dL Globulin (2.6-4.0) g/dL Albumin/Globulin Ratio (0.9-1.6) Urine Color YELLOW Urine Appearance CLEAR Urine pH 5.5 (5.0-8.0) Ur Specific [place] 1.020 (1.001-1.035) Urine Protein NEGATIVE (NEGATIVE) mg/dL Urine Glucose (UA) NEGATIVE (NEGATIVE) mg/dL Urine Ketones NEGATIVE (NEGATIVE) mg/dL Urine Occult Blood TRACE-LYSED H (NEGATIVE) Urine Nitrite NEGATIVE (NEGATIVE) Urine Bilirubin NEGATIVE (NEGATIVE) Urine Urobilinogen 0.2 (<2.0) EU/dL Ur Leukocyte Esterase LARGE H (NEGATIVE) Urine RBC NONE SEEN (0-2/HPF) Urine WBC 5-8 (0-5/HPF) Ur Epithelial Cells FEW (NONE-FEW) Urine Bacteria FEW (NEGATIVE) Urine Mucus LIGHT (NONE-MOD) 09/11/19 Range/Units 08:46 WBC (4.0-11.0) K/uL RBC (4.30-5.90) M/uL Hgb (12.0-16.0) g/dL Hct (36.0-46.0) % MCV (80.0-98.0) fL MCH (27.0-32.0) pg MCHC (31.0-37.0) g/dL RDW Std Deviation (28.0-62.0) fl RDW Coeff of Tray (11.0-15.0) % Plt Count (150-400) K/uL MPV (7.40-12.00) fL Neut % (Auto) (48.0-80.0) % Lymph % (Auto) (16.0-40.0) % [place] % (Auto) (0.0-15.0) % Eos % (Auto) (0.0-7.0) % Baso % (Auto) (0.0-1.5) % Neut # (Auto) (1.4-5.7) K/uL Lymph # (Auto) (0.6-2.4) K/uL [place] # (Auto) (0.0-0.8) K/uL Eos # (Auto) (0.0-0.7) K/uL Baso # (Auto) (0.0-0.1) K/uL Nucleated RBC % /100WBC Nucleated RBCs # K/uL INR Sodium (136-145) mmol/L Potassium (3.5-5.1) mmol/L Chloride (98-107) mmol/L Carbon Dioxide (21.0-32.0) mmol/L BUN (7.0-18.0) mg/dL Creatinine (0.6-1.0) mg/dL Est Cr Clr Drug Dosing mL/min Estimated GFR (MDRD) ml/min Glucose (74-106) mg/dL Calcium (8.5-10.1) mg/dL Magnesium 1.8 (1.8-2.4) mg/dL Total Bilirubin (0.2-1.0) mg/dL AST (15-37) IU/L ALT (14-63) IU/L Alkaline Phosphatase (46-116) U/L Troponin I (0.000-0.056) ng/mL Total Protein (6.4-8.2) g/dL Albumin (3.4-5.0) g/dL Globulin (2.6-4.0) g/dL Albumin/Globulin Ratio (0.9-1.6) Urine Color Urine Appearance Urine pH (5.0-8.0) Ur Specific [place] (1.001-1.035) Urine Protein (NEGATIVE) mg/dL Urine Glucose (UA) (NEGATIVE) mg/dL Urine Ketones (NEGATIVE) mg/dL Urine Occult Blood (NEGATIVE) Urine Nitrite (NEGATIVE) Urine Bilirubin (NEGATIVE) Urine Urobilinogen (<2.0) EU/dL Ur Leukocyte Esterase (NEGATIVE) Urine RBC (0-2/HPF) Urine WBC (0-5/HPF) Ur Epithelial Cells (NONE-FEW) Urine Bacteria (NEGATIVE) Urine Mucus (NONE-MOD) Result Diagrams: 09/10/19 20:45 09/10/19 20:45 Problem List Initiated/Reviewed/Updated: Yes Orders Last 24hrs: Active Orders 24 hr Category Date Time Status Admission Status [Patient Status] [ADT] Stat ADT 09/10/19 22:32 Active Cardiac Monitoring [RC] . DIRECTED Care 09/10/19 20:44 Active Influenza Vaccine Charge [RC] .DISCHARGE Care 09/11/19 00:33 Active Ready for Discharge [RC] PER UNIT ROUTINE Care 09/11/19 12:02 Active Regular Diet [DIET] Diet 09/11/19 Breakfast Active CULTURE URINE [RM] Stat Lab 09/10/19 22:04 Received Acetaminophen [Tylenol] Med 09/11/19 09:26 Active 650 mg PO Q4H PRN Albuterol [Ventolin HFA] Med 09/11/19 08:03 Active 0 gm INH Q4H PRN Cholecalciferol (Vitamin D3) [Vitamin D3] Med 09/11/19 09:45 Active 25 mcg PO Th@0900 DULoxetine [Cymbalta] Med 09/11/19 09:00 Active 60 mg PO DAILY Levothyroxine Med 09/11/19 09:00 Active 75 mcg PO DAILY Magnesium Sulfate/Water [Magnesium Sulfate in Water Med 09/11/19 12:01 Ordered Premix] 2 gm Premix Bag 1 bag IV ONETIME Morphine Med 09/10/19 23:54 Active 2 mg IVPUSH Q4H PRN Patient's Own Medication [Ptom] Med 09/11/19 09:00 Active 0 each INH BID Patient's Own Medication [Ptom] Med 09/11/19 09:00 Active 1 each PO DAILY Patient's Own Medication [Ptom] Med 09/11/19 14:00 Active 1 each TOP TID Propranolol [Inderal LA] Med 09/11/19 09:00 Active 60 mg PO DAILY Simvastatin [Zocor] Med 09/11/19 21:00 Active 40 mg PO BEDTIME Sodium Chloride 0.9% [Saline Flush] Med 09/10/19 20:44 Active 10 ml FLUSH ASDIRECTED PRN Sodium Chloride 0.9% [Saline Flush] Med 09/10/19 20:44 Active 2.5 ml FLUSH ASDIRECTED PRN predniSONE Med 09/11/19 09:00 Active 2.5 mg PO BID Saline Lock Insert [OM.PC] Stat Oth 09/10/19 20:44 Ordered Medication Orders Acetaminophen (Tylenol) 650 mg PO Q4H PRN PRN Reason: Pain Last Admin: 09/11/19 09:43 Dose: 650 mg Albuterol (Ventolin Hfa) 0 gm INH Q4H PRN PRN Reason: Wheezing Cholecalciferol (Vitamin D3) 25 mcg PO Th@0900 [facility] Last Admin: 09/11/19 09:48 Dose: 25 mcg Duloxetine HCl (Cymbalta) 60 mg PO DAILY [facility] Last Admin: 09/11/19 09:41 Dose: 60 mg Magnesium Sulfate 2 gm/ Premix 50 mls @ 50 mls/hr IV ONETIME ONE Stop: 09/11/19 13:00 Levothyroxine Sodium (Levothyroxine) 75 mcg PO DAILY [facility] Last Admin: 09/11/19 09:40 Dose: 75 mcg Morphine Sulfate (Morphine) 2 mg IVPUSH Q4H PRN PRN Reason: Pain Budesonide/Formoterol Fumarate 2 Puff 80-4.5 Mg 0 each INH BID [facility] Last Admin: 09/11/19 10:05 Dose: 2 each Diclofenac Sodium (Gel 1 Gm) 1 each TOP TID [facility] Folic Acid 0.4 Mg 1 each PO DAILY [facility] Last Admin: 09/11/19 09:48 Dose: Not Given Prednisone (Prednisone) 2.5 mg PO BID [facility] Last Admin: 09/11/19 09:42 Dose: 2.5 mg Propranolol HCl (Inderal La) 60 mg PO DAILY [facility] Last Admin: 09/11/19 09:39 Dose: 60 mg Simvastatin (Zocor) 40 mg PO BEDTIME [facility] Sodium Chloride (Saline Flush) 10 ml FLUSH ASDIRECTED PRN PRN Reason: Keep Vein Open Sodium Chloride (Saline Flush) 2.5 ml FLUSH ASDIRECTED PRN PRN Reason: Keep Vein Open Assessment/Plan Comment:: 79 yo female who presents with 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 She might as well have a UTI. She is requesting discharge home. I offered setting up a Zio patch but patient declined and prefers to follow up with Cardiology clinic in [place] next Sunday. Patient was discharge home.
[2019-09-11 12:40] VITALS: BP 123/76; PULSE 61
[2019-09-11] MEDS ORDERED: DICLOFENAC SODIUM TOP SCH (14:00)
[2019-09-11] MEDS ORDERED: Simvastatin 40 MG Tab PO SCH (21:00)
== END 2019-09-11 14:45 | disposition home or self-care (01) ==
LOC: MW.ED 20:36 → MW.MS 22:32
PROVIDERS: ADMIT Internal Medicine; ATTEND Internal Medicine
DX: R07.89 Other chest pain (principal); R00.2 Palpitations; E03.9 Hypothyroidism, unspecified; E78.00 Pure hypercholesterolemia, unspecified; J45.909 Unspecified asthma, uncomplicated; Z23 Encounter for immunization; Z79.52 Long term (current) use of systemic steroids; Z79.899 Other long term (current) drug therapy
CPT/HCPCS: 36415; 71045; 71045-26; 80053; 81001; 83735; 84484; 85025; 85610; 87086; 90662; 93005; 94664; 96361; 96365; 96375; 99284; 99285-25; A9270-GY; G0008; G0378; J0696; J3475; J7040; J7512

== ENCOUNTER 2020-06-19 14:29 | Inpatient (IN) | payer MEDICARE, OTHER ==
[2020-06-19] MEDS ORDERED: Sodium Chloride 0.9% 2.5 ML Syringe FLUSH PRN (15:04)
[2020-06-19] MEDS ORDERED: Sodium Chloride 0.9% 10 ML Syringe FLUSH PRN (15:04)
--- NOTE | 2020-06-19 15:07 | EDM.PDOC ---
ED HPI GENERAL MEDICAL PROBLEM - General Chief Complaint: Respiratory Problem Stated Complaint: COUGHING,WHEEZING Time Seen by Provider: 06/19/20 14:40 Source of Information: Reports: Patient History Limitations: Reports: No Limitations - History of Present Illness INITIAL COMMENTS - FREE TEXT/NARRATIVE: HISTORY AND PHYSICAL: History of present illness: Patient is an 80-year-old female who presents to the emergency room with complaints of cough, shortness of breath and chest tightness over the past 2 days. She states she has generalized body aches and does not feel well. Her main concern is that she has been up throughout the evening coughing as she is unable to get comfortable or lay still long enough before she "goes into a coughing fit". Patient denies any fever, chills, change in vision, syncope or near syncope. Denies any back pain, abdominal pain, nausea, vomiting, diarrhea, constipation or dysuria. Has not noted any blood in urine or stool. Patient has been eating and drinking appropriately. Review of systems: As per history of present illness and below otherwise all systems reviewed and negative. Past medical history: As per history of present illness and as reviewed below otherwise noncontributory. Surgical history: As per history of present illness and as reviewed below otherwise noncontributory. Social history: See social history for further information Family history: As per history of present illness and as reviewed below otherwise noncontributory. Physical exam: General: Developed and well-nourished 80-year-old female. Alert and oriented. Nontoxic-appearing and in no acute distress. HEENT: Atraumatic, normocephalic, pupils equal and reactive bilaterally, negative for conjunctival pallor or scleral icterus, mucous membranes moist, TMs normal bilaterally, throat clear, neck supple, nontender, trachea midline. No drooling or trismus noted. No meningeal signs. No hot potato voice noted. Lungs: Fine expiratory wheezing to bilateral bases otherwise clear to auscultation, breath sounds equal bilaterally, chest nontender. Frequent coughing noted. Dry and nonproductive. Heart: S1S2, regular rate and rhythm without overt murmur Abdomen: Soft, nondistended, nontender. Negative for masses or hepatosplenomegaly. Negative for costovertebral tenderness. Skin: Intact, warm, dry. No lesions or rashes noted. Extremities: Atraumatic, moves all extremities per self without difficulty or deficits, negative for cords or calf pain. Neurovascular unremarkable. Neuro: Awake, alert, oriented. Cranial nerves II through XII unremarkable. Cerebellum unremarkable. Motor and sensory unremarkable throughout. Exam nonfocal. Notes: Patient does have slightly elevated white count, concerning with her cough and wheezing. The azithromycin does have QT prolongation with some of her home medications, will do Rocephin IV. Discussed with the hospitalist, Dr. Love about admission for patient. She is agreeable to plan of care and we will continue to monitor this patient. Patient is aware of admission and is agreeable. Denies any further questions or concerns at this time. Diagnostics: CBC, CMP, UA, EKG, troponin, COVID-19 Therapeutics: Rocephin, Lenysalon Impression: Chest pain rule out [place] Bronchitis Plan: Observation admission with telemetry Definitive disposition and diagnosis as appropriate pending reevaluation and review of above. Head/Chest Pain Score (Numeric/FACES): 7 - Related Data Allergies Allergy/AdvReac Type Severity Reaction Status Date / Time No Known Allergies Allergy Verified 06/19/20 14:55 Home Meds: Home Meds Levothyroxine 75 mcg PO ACBREAKFAST 09/29/15 [History] predniSONE [Prednisone] 2.5 mg PO BID 12/18/16 [History] Albuterol [Ventolin HFA] 2 puff INH Q6H PRN 06/04/18 [History] Simvastatin [Zocor] 40 mg PO BEDTIME 06/04/18 [History] Budesonide/Formoterol Fumarate [Symbicort 80-4.5 MCG] 2 puff INH BID 09/10/19 [History] Diclofenac Sodium [Voltaren 1% Gel] 2 gm TOP BID 09/10/19 [History] Acetaminophen with Codeine [Acetaminophen-Cod #3] 1 each PO TID PRN 12/26/19 [History] Apixaban [Eliquis] 5 mg PO BID 12/26/19 [History] Cyclobenzaprine [Flexeril] 10 mg PO TID PRN 12/26/19 [History] DULoxetine HCl [Cymbalta] 60 mg PO DAILY 12/26/19 [History] Metoprolol Succinate [Toprol XL] 25 mg PO DAILY 12/26/19 [History] traMADol [Ultram] 50 mg PO Q6H PRN 12/26/19 [History] Past Medical History HEENT History: Reports: Allergic Rhinitis Other HEENT History: wears glasses Cardiovascular History: Reports: Arrhythmia, High Cholesterol Other Cardiovascular History: Occasional palpitations, 'do not know if it's nerves or what" Respiratory History: Reports: Asthma Gastrointestinal History: Reports: None Other Gastrointestinal History: Indigestion, pain to back Genitourinary History: Reports: None Other Genitourinary History: Urgency at times, Recent discovery of abnormality on one of my kidneys [employer] History: Reports: Musculoskeletal History: Reports: None Neurological History: Reports: Other (See Below) Other Neuro History: Tremor Psychiatric History: Reports: None Other Psychiatric History: Get a little anxious on occasion Endocrine/Metabolic History: Reports: Hypothyroidism, Obesity/BMI 30+ Other Endocrine/Metabolic History: hypothyroidism Hematologic History: Reports: None Immunologic History: Reports: None Oncologic (Cancer) History: Reports: None Dermatologic History: Reports: None - Infectious Disease History Infectious Disease History: Reports: Chicken Pox, Measles, Mumps - Past Surgical History Head Surgeries/Procedures: Reports: None HEENT Surgical History: Reports: None Cardiovascular Surgical History: Reports: None Respiratory Surgical History: Reports: None GI Surgical History: Reports: Cholecystectomy, Colonoscopy, Other (See Below) Other GI Surgeries/Procedures: bowel surgery Musculoskeletal Surgical History: Reports: Other (See Below) 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 ED EXAM, GENERAL - Physical Exam Exam: See Below (See dictation) Course - Vital Signs Last Recorded V/S: Last Vital Signs Temp 98.4 F 06/19/20 14:55 Pulse 85 06/19/20 14:55 Resp 17 06/19/20 14:55 BP 132/73 06/19/20 14:55 Pulse Ox 95 06/19/20 14:55 - Orders/Labs/Meds Orders: Active Orders 24 hr Category Date Time Status Admission Status [Patient Status] [ADT] Stat ADT 06/19/20 16:31 Ordered EKG Documentation Completion [RC] STAT Care 06/19/20 15:04 Active UA RFX OLIVIER AND CULT IF INDIC [URIN] Stat Lab 06/19/20 15:04 Ordered Sodium Chloride 0.9% [Saline Flush] Med 06/19/20 15:04 Active 10 ml FLUSH ASDIRECTED PRN Sodium Chloride 0.9% [Saline Flush] Med 06/19/20 15:04 Active 2.5 ml FLUSH ASDIRECTED PRN cefTRIAXone [Rocephin in Dextrose,Iso-Osm 1 GM/50 ML] 1 Med 06/19/20 16:35 Ordered gm Premix Bag 1 bag IV ONETIME Saline Lock Insert [OM.PC] Stat Oth 06/19/20 15:04 Ordered Medication Orders Ceftriaxone Sodium/Dextrose 1 (gm/ Premix) 50 mls @ 100 mls/hr IV ONETIME ONE Stop: 06/19/20 17:04 Sodium Chloride (Saline Flush) 10 ml FLUSH ASDIRECTED PRN PRN Reason: Keep Vein Open Sodium Chloride (Saline Flush) 2.5 ml FLUSH ASDIRECTED PRN PRN Reason: Keep Vein Open Labs: Laboratory Tests 06/19/20 06/19/20 06/19/20 Range/Units 15:15 15:15 15:15 WBC 11.59 H (4.0-11.0) K/uL RBC 3.91 L (4.30-5.90) M/uL Hgb 12.6 (12.0-16.0) g/dL Hct 39.7 (36.0-46.0) % MCV 101.5 H (80.0-98.0) fL MCH 32.2 H (27.0-32.0) pg MCHC 31.7 (31.0-37.0) g/dL RDW Std Deviation 49.3 (28.0-62.0) fl RDW Coeff of Tray 13 (11.0-15.0) % Plt Count 310 (150-400) K/uL MPV 9.20 (7.40-12.00) fL Neut % (Auto) 71.9 (48.0-80.0) % Lymph % (Auto) 15.7 L (16.0-40.0) % [place] % (Auto) 11.3 (0.0-15.0) % Eos % (Auto) 0.9 (0.0-7.0) % Baso % (Auto) 0.2 (0.0-1.5) % Neut # (Auto) 8.3 H (1.4-5.7) K/uL Lymph # (Auto) 1.8 (0.6-2.4) K/uL [place] # (Auto) 1.3 H (0.0-0.8) K/uL Eos # (Auto) 0.1 (0.0-0.7) K/uL Baso # (Auto) 0.0 (0.0-0.1) K/uL Nucleated RBC % 0.0 /100WBC Nucleated RBCs # 0 K/uL INR 0.98 Sodium 139 (136-145) mmol/L Potassium 3.6 (3.5-5.1) mmol/L Chloride 103 (98-107) mmol/L Carbon Dioxide 23.9 (21.0-32.0) mmol/L BUN 12 (7.0-18.0) mg/dL Creatinine 0.9 (0.6-1.0) mg/dL Est Cr Clr Drug Dosing 38.77 mL/min Estimated GFR (MDRD) > 60.0 ml/min Glucose 98 (74-106) mg/dL Calcium 8.5 (8.5-10.1) mg/dL Total Bilirubin 0.5 (0.2-1.0) mg/dL AST 17 (15-37) IU/L ALT 22 (14-63) IU/L Alkaline Phosphatase 78 (46-116) U/L Troponin I < 0.050 (0.000-0.056) ng/mL Total Protein 8.0 (6.4-8.2) g/dL Albumin 3.6 (3.4-5.0) g/dL Globulin 4.4 H (2.6-4.0) g/dL Albumin/Globulin Ratio 0.8 L (0.9-1.6) COVID-19 (ALDO) (NEGATIVE) 06/19/20 Range/Units 15:50 WBC (4.0-11.0) K/uL RBC (4.30-5.90) M/uL Hgb (12.0-16.0) g/dL Hct (36.0-46.0) % MCV (80.0-98.0) fL MCH (27.0-32.0) pg MCHC (31.0-37.0) g/dL RDW Std Deviation (28.0-62.0) fl RDW Coeff of Tray (11.0-15.0) % Plt Count (150-400) K/uL MPV (7.40-12.00) fL Neut % (Auto) (48.0-80.0) % Lymph % (Auto) (16.0-40.0) % [place] % (Auto) (0.0-15.0) % Eos % (Auto) (0.0-7.0) % Baso % (Auto) (0.0-1.5) % Neut # (Auto) (1.4-5.7) K/uL Lymph # (Auto) (0.6-2.4) K/uL [place] # (Auto) (0.0-0.8) K/uL Eos # (Auto) (0.0-0.7) K/uL Baso # (Auto) (0.0-0.1) K/uL Nucleated RBC % /100WBC Nucleated RBCs # K/uL INR Sodium (136-145) mmol/L Potassium (3.5-5.1) mmol/L Chloride (98-107) mmol/L Carbon Dioxide (21.0-32.0) mmol/L BUN (7.0-18.0) mg/dL Creatinine (0.6-1.0) mg/dL Est Cr Clr Drug Dosing mL/min Estimated GFR (MDRD) ml/min Glucose (74-106) mg/dL Calcium (8.5-10.1) mg/dL Total Bilirubin (0.2-1.0) mg/dL AST (15-37) IU/L ALT (14-63) IU/L Alkaline Phosphatase (46-116) U/L Troponin I (0.000-0.056) ng/mL Total Protein (6.4-8.2) g/dL Albumin (3.4-5.0) g/dL Globulin (2.6-4.0) g/dL Albumin/Globulin Ratio (0.9-1.6) COVID-19 (ALDO) NEGATIVE (NEGATIVE) Meds: Medications Generic Name Dose Route Start Last Admin Trade Name Freq PRN Reason Stop Dose Admin Ceftriaxone Sodium/Dextrose 1 50 mls @ 100 mls/hr 06/19/20 16:35 gm/ Premix IV 06/19/20 17:04 ONETIME ONE Sodium Chloride 10 ml 06/19/20 15:04 Saline Flush FLUSH ASDIRECTED PRN Keep Vein Open Sodium Chloride 2.5 ml 06/19/20 15:04 Saline Flush FLUSH ASDIRECTED PRN Keep Vein Open Discontinued Medications Generic Name Dose Route Start Last Admin Trade Name Freq PRN Reason Stop Dose Admin Benzonatate 200 mg 06/19/20 16:31 Tessalon Perles PO 06/19/20 16:32 ONETIME ONE Departure - Departure Time of Disposition: 16:40 Disposition: Refer to Observation Clinical Impression: Bronchitis, Chest pain, rule out acute myocardial infarction - Discharge Information Referrals: Florina Randhawa DO [Primary Care Provider] - Forms: ED Department Discharge Sepsis Event Note (ED) - Evaluation Sepsis Screening Result: No Definite Risk - Focused Exam Vital Signs: Vital Signs Temp Pulse Resp BP Pulse Ox 06/19/20 14:55 98.4 F 85 17 132/73 95 - My Orders Last 24 Hours: My Active Orders 06/19/20 15:04 EKG Documentation Completion [RC] STAT UA RFX OLIVIER AND CULT IF INDIC [URIN] Stat Sodium Chloride 0.9% [Saline Flush] 10 ml FLUSH ASDIRECTED PRN Sodium Chloride 0.9% [Saline Flush] 2.5 ml FLUSH ASDIRECTED PRN Saline Lock Insert [OM.PC] Stat 06/19/20 16:31 Admission Status [Patient Status] [ADT] Stat 06/19/20 16:35 cefTRIAXone [Rocephin in Dextrose,Iso-Osm 1 GM/50 ML] 1 gm Premix Bag 1 bag IV ONETIME - Assessment/Plan Last 24 Hours: My Active Orders 06/19/20 15:04 EKG Documentation Completion [RC] STAT UA RFX OLIVIER AND CULT IF INDIC [URIN] Stat Sodium Chloride 0.9% [Saline Flush] 10 ml FLUSH ASDIRECTED PRN Sodium Chloride 0.9% [Saline Flush] 2.5 ml FLUSH ASDIRECTED PRN Saline Lock Insert [OM.PC] Stat 06/19/20 16:31 Admission Status [Patient Status] [ADT] Stat 06/19/20 16:35 cefTRIAXone [Rocephin in Dextrose,Iso-Osm 1 GM/50 ML] 1 gm Premix Bag 1 bag IV ONETIME
--- NOTE | 2020-06-19 15:45 | CR ---
Chest: Frontal view of the chest was obtained utilizing portable technique. Comparison: Prior chest x-ray of 01/09/20. Findings: Right hemidiaphragm is slightly elevated. There is gas-filled bowel interposed between liver and diaphragm which I believe is a normal variant. Lungs are clear with no acute parenchymal change being seen. Heart size and mediastinum are normal. Bony structures are grossly intact. Impression: 1. Nothing acute is seen on portable chest x-ray. Diagnostic code #2 This report was dictated in MDT
[2020-06-19 15:48] LABS: BLOOD UREA NITROGEN,BUN 12 mg/dL (7.0-18.0); CARBON DIOXIDE,CO2 23.9 mmol/L (21.0-32.0); CHLORIDE,CL 103 mmol/L (98-107); GLUCOSE RANDOM 98 mg/dL (74-106); POTASSIUM,K 3.6 mmol/L (3.5-5.1); SODIUM,NA 139 mmol/L (136-145)
[2020-06-19] MEDS ORDERED: Benzonatate 100 MG Cap PO ONE (16:31)
[2020-06-19] MEDS ORDERED: cefTRIAXone 1 GM in Premix Bag 1 BAG IV ONE (16:35)
--- NOTE | 2020-06-19 21:42 | PCM.HP.2 ---
H&P History of Present Illness - General Date of Service: 06/19/20 Admit Problem/Dx: Admission Diagnosis/Problem Admission Diagnosis/Problem Chest pain, rule out acute myocardial infarction - History of Present Illness Initial Comments - Free Text/Narative: Patient is an 80-year-old female who presents to the emergency room with complaints of cough, productive sputum, clear in color, shortness of breath and chest tightness over the past 2 days. She states she has generalized body aches and does not feel well. She also has been throwing up due to her coughing spells. Patient denies any fever, chills, change in vision, syncope or near syncope. Denies any back pain, abdominal pain, nausea, vomiting, diarrhea, constipation or dysuria. Has not noted any blood in urine or stool. Patient has been eating and drinking appropriately. In the ER patient had slightly elevated wbc count of 11.5, rest of the lab work was reassuring. CXRdid t show any infiltrate, troponin was negative, EKG non ischemic, Patient is being admitted for ACS rule out and possible bronchitis. Head/Chest Pain Score (Numeric/FACES): 7 Headache Pain Score (Numeric/FACES): 5 - Related Data Allergies/Adverse Reactions: Allergies Allergy/AdvReac Type Severity Reaction Status Date / Time No Known Allergies Allergy Verified 06/19/20 17:55 Home Medications: Home Meds Levothyroxine 75 mcg PO ACBREAKFAST 09/29/15 [History] predniSONE [Prednisone] 2.5 mg PO BID 12/18/16 [History] Albuterol [Ventolin HFA] 2 puff INH Q6H PRN 06/04/18 [History] Simvastatin [Zocor] 40 mg PO BEDTIME 06/04/18 [History] Budesonide/Formoterol Fumarate [Symbicort 80-4.5 MCG] 2 puff INH BID 09/10/19 [History] Diclofenac Sodium [Voltaren 1% Gel] 2 gm TOP BID 09/10/19 [History] Acetaminophen with Codeine [Acetaminophen-Cod #3] 1 each PO TID PRN 12/26/19 [History] Apixaban [Eliquis] 5 mg PO BID 12/26/19 [History] Cyclobenzaprine [Flexeril] 10 mg PO TID PRN 12/26/19 [History] DULoxetine HCl [Cymbalta] 60 mg PO DAILY 12/26/19 [History] Metoprolol Succinate [Toprol XL] 25 mg PO DAILY 12/26/19 [History] traMADol [Ultram] 50 mg PO Q6H PRN 12/26/19 [History] Past Medical History HEENT History: Reports: Allergic Rhinitis Other HEENT History: wears glasses Cardiovascular History: Reports: Arrhythmia, High Cholesterol Other Cardiovascular History: Occasional palpitations, 'do not know if it's nerves or what" Respiratory History: Reports: Asthma Gastrointestinal History: Reports: None Other Gastrointestinal History: Indigestion, pain to back Genitourinary History: Reports: None Other Genitourinary History: Urgency at times, Recent discovery of abnormality on one of my kidneys VERIFICATION LEAD History: Reports: Musculoskeletal History: Reports: None Neurological History: Reports: Other (See Below) Other Neuro History: Tremor Psychiatric History: Reports: None Other Psychiatric History: Get a little anxious on occasion Endocrine/Metabolic History: Reports: Hypothyroidism, Obesity/BMI 30+ Other Endocrine/Metabolic History: hypothyroidism Hematologic History: Reports: None Immunologic History: Reports: None Oncologic (Cancer) History: Reports: None Dermatologic History: Reports: None - Infectious Disease History Infectious Disease History: Reports: Chicken Pox, Measles, Mumps - Past Surgical History Head Surgeries/Procedures: Reports: None HEENT Surgical History: Reports: None Cardiovascular Surgical History: Reports: None Respiratory Surgical History: Reports: None GI Surgical History: Reports: Cholecystectomy, Colonoscopy, Other (See Below) Other GI Surgeries/Procedures: bowel surgery Musculoskeletal Surgical History: Reports: Other (See Below) 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 Denies: Fever, Chills, Night Sweats, Diaphoresis HEENT: Denies: Dysphasia, Ear Pain, Eye Pain Pulmonary: Reports: Shortness of Breath, Cough, Sputum. Denies: Wheezing, Pleuritic Chest Pain, Hemoptysis Cardiovascular: Reports: Chest Pain (with coughing), Dyspnea on Exertion. Denies: Palpitations, Orthopnea, PND Gastrointestinal: Denies: Abdominal Pain, Black Stool, Bloody Stool, Constipation, Diarrhea Genitourinary: Denies: Dysuria, Frequency, Burning Exam - Exam Exam: See Below - Vital Signs Vital Signs: Last Vital Signs Temp 36.6 C 06/19/20 18:00 Pulse 83 06/19/20 18:00 Resp 17 06/19/20 18:00 BP 146/78 H 06/19/20 18:00 Pulse Ox 94 L 06/19/20 18:00 Weight: 88 kg - Exam General: Alert, Oriented HEENT: Conjunctiva Clear Neck: Supple, Trachea Midline Lungs: Clear to Auscultation, Normal Respiratory Effort, Rhonchi, Wheezing Cardiovascular: Regular Rate, Regular Rhythm, Normal S1, Normal S2 - Patient Data Lab Results Last 24 hrs: Laboratory Results - last 24 hr 06/19/20 06/19/20 06/19/20 Range/Units 15:15 15:15 15:15 WBC 11.59 H (4.0-11.0) K/uL RBC 3.91 L (4.30-5.90) M/uL Hgb 12.6 (12.0-16.0) g/dL Hct 39.7 (36.0-46.0) % MCV 101.5 H (80.0-98.0) fL MCH 32.2 H (27.0-32.0) pg MCHC 31.7 (31.0-37.0) g/dL RDW Std Deviation 49.3 (28.0-62.0) fl RDW Coeff of Tray 13 (11.0-15.0) % Plt Count 310 (150-400) K/uL MPV 9.20 (7.40-12.00) fL Neut % (Auto) 71.9 (48.0-80.0) % Lymph % (Auto) 15.7 L (16.0-40.0) % [place] % (Auto) 11.3 (0.0-15.0) % Eos % (Auto) 0.9 (0.0-7.0) % Baso % (Auto) 0.2 (0.0-1.5) % Neut # (Auto) 8.3 H (1.4-5.7) K/uL Lymph # (Auto) 1.8 (0.6-2.4) K/uL [place] # (Auto) 1.3 H (0.0-0.8) K/uL Eos # (Auto) 0.1 (0.0-0.7) K/uL Baso # (Auto) 0.0 (0.0-0.1) K/uL Nucleated RBC % 0.0 /100WBC Nucleated RBCs # 0 K/uL INR 0.98 Sodium 139 (136-145) mmol/L Potassium 3.6 (3.5-5.1) mmol/L Chloride 103 (98-107) mmol/L Carbon Dioxide 23.9 (21.0-32.0) mmol/L BUN 12 (7.0-18.0) mg/dL Creatinine 0.9 (0.6-1.0) mg/dL Est Cr Clr Drug Dosing 38.77 mL/min Estimated GFR (MDRD) > 60.0 ml/min Glucose 98 (74-106) mg/dL Calcium 8.5 (8.5-10.1) mg/dL Total Bilirubin 0.5 (0.2-1.0) mg/dL AST 17 (15-37) IU/L ALT 22 (14-63) IU/L Alkaline Phosphatase 78 (46-116) U/L Troponin I < 0.050 (0.000-0.056) ng/mL Total Protein 8.0 (6.4-8.2) g/dL Albumin 3.6 (3.4-5.0) g/dL Globulin 4.4 H (2.6-4.0) g/dL Albumin/Globulin Ratio 0.8 L (0.9-1.6) Urine Color Urine Appearance Urine pH (5.0-8.0) Ur Specific [place] (1.001-1.035) Urine Protein (NEGATIVE) mg/dL Urine Glucose (UA) (NEGATIVE) mg/dL Urine Ketones (NEGATIVE) mg/dL Urine Occult Blood (NEGATIVE) Urine Nitrite (NEGATIVE) Urine Bilirubin (NEGATIVE) Urine Urobilinogen (<2.0) EU/dL Ur Leukocyte Esterase (NEGATIVE) Urine RBC (0-2/HPF) Urine WBC (0-5/HPF) Ur Epithelial Cells (NONE-FEW) Urine Bacteria (NEGATIVE) Urine Mucus (NONE-MOD) COVID-19 (ALDO) (NEGATIVE) 06/19/20 06/19/20 06/19/20 Range/Units 15:50 18:05 20:00 WBC (4.0-11.0) K/uL RBC (4.30-5.90) M/uL Hgb (12.0-16.0) g/dL Hct (36.0-46.0) % MCV (80.0-98.0) fL MCH (27.0-32.0) pg MCHC (31.0-37.0) g/dL RDW Std Deviation (28.0-62.0) fl RDW Coeff of Tray (11.0-15.0) % Plt Count (150-400) K/uL MPV (7.40-12.00) fL Neut % (Auto) (48.0-80.0) % Lymph % (Auto) (16.0-40.0) % [place] % (Auto) (0.0-15.0) % Eos % (Auto) (0.0-7.0) % Baso % (Auto) (0.0-1.5) % Neut # (Auto) (1.4-5.7) K/uL Lymph # (Auto) (0.6-2.4) K/uL [place] # (Auto) (0.0-0.8) K/uL Eos # (Auto) (0.0-0.7) K/uL Baso # (Auto) (0.0-0.1) K/uL Nucleated RBC % /100WBC Nucleated RBCs # K/uL INR Sodium (136-145) mmol/L Potassium (3.5-5.1) mmol/L Chloride (98-107) mmol/L Carbon Dioxide (21.0-32.0) mmol/L BUN (7.0-18.0) mg/dL Creatinine (0.6-1.0) mg/dL Est Cr Clr Drug Dosing mL/min Estimated GFR (MDRD) ml/min Glucose (74-106) mg/dL Calcium (8.5-10.1) mg/dL Total Bilirubin (0.2-1.0) mg/dL AST (15-37) IU/L ALT (14-63) IU/L Alkaline Phosphatase (46-116) U/L Troponin I < 0.050 (0.000-0.056) ng/mL Total Protein (6.4-8.2) g/dL Albumin (3.4-5.0) g/dL Globulin (2.6-4.0) g/dL Albumin/Globulin Ratio (0.9-1.6) Urine Color YELLOW Urine Appearance CLEAR Urine pH 6.0 (5.0-8.0) Ur Specific [place] 1.025 (1.001-1.035) Urine Protein NEGATIVE (NEGATIVE) mg/dL Urine Glucose (UA) NEGATIVE (NEGATIVE) mg/dL Urine Ketones NEGATIVE (NEGATIVE) mg/dL Urine Occult Blood SMALL H (NEGATIVE) Urine Nitrite NEGATIVE (NEGATIVE) Urine Bilirubin NEGATIVE (NEGATIVE) Urine Urobilinogen 0.2 (<2.0) EU/dL Ur Leukocyte Esterase NEGATIVE (NEGATIVE) Urine RBC 3-6 (0-2/HPF) Urine WBC 0-2 (0-5/HPF) Ur Epithelial Cells FEW (NONE-FEW) Urine Bacteria RARE (NEGATIVE) Urine Mucus LIGHT (NONE-MOD) COVID-19 (ALDO) NEGATIVE (NEGATIVE) Result Diagrams: 06/20/20 06:02 06/20/20 06:02 Sepsis Event Note - Evaluation Sepsis Screening Result: No Definite Risk - Focused Exam Vital Signs: Vital Signs Temp Pulse Resp BP Pulse Ox 06/19/20 18:00 36.6 C 83 17 146/78 H 94 L 06/19/20 16:55 74 18 110/53 L 94 L 06/19/20 16:40 74 129/69 92 L 06/19/20 16:10 78 129/89 92 L 06/19/20 15:40 77 126/65 91 L 06/19/20 15:25 83 18 146/66 H 94 L 06/19/20 14:55 36.9 C 85 17 132/73 95 Date Exam was Performed: 06/20/20 Time Exam was Performed: 08:06 - Problem List (1) Bronchitis SNOMED Code(s): 28854698 ICD Code: J40 - BRONCHITIS, NOT SPECIFIED ACUTE OR CHRONIC Status: Acute Current Visit: Yes (2) Chest pain, rule out acute myocardial infarction SNOMED Code(s): 01359808 ICD Code: R07.9 - CHEST PAIN, UNSPECIFIED Status: Acute Current Visit: Yes Problem List Initiated/Reviewed/Updated: Yes Orders Last 24hrs: Active Orders 24 hr Category Date Time Status Admission Status [Patient Status] [ADT] Stat ADT 06/19/20 16:31 Active Ambulate [RC] ASDIRECTED Care 06/19/20 16:51 Active Antiembolic Devices [RC] PER UNIT ROUTINE Care 06/19/20 16:52 Active Oxygen Therapy [RC] PRN Care 06/19/20 16:51 Active RT Aerosol Therapy [RC] ASDIRECTED Care 06/19/20 16:52 Active Telemetry Monitoring [Cardiac Monitoring] [RC] . Care 06/19/20 18:00 Active DIRECTED VTE/DVT Education [RC] PER UNIT ROUTINE Care 06/19/20 16:51 Active Vital Signs [RC] Q4H Care 06/19/20 16:51 Active Heart Healthy Diet [DIET] Diet 06/19/20 Dinner Active TROPONIN I [CHEM] Q3H Lab 06/19/20 21:11 Received Acetaminophen [Tylenol] Med 06/19/20 20:48 Active 650 mg PO Q6H PRN Albuterol/Ipratropium [DuoNeb 3.0-0.5 MG/3 ML] Med 06/19/20 16:51 Active 3 ml NEB Q4HRRT PRN Sodium Chloride 0.9% [Saline Flush] Med 06/19/20 15:04 Active 10 ml FLUSH ASDIRECTED PRN Sodium Chloride 0.9% [Saline Flush] Med 06/19/20 15:04 Active 2.5 ml FLUSH ASDIRECTED PRN Saline Lock Insert [OM.PC] Stat Oth 06/19/20 15:04 Ordered Sequential Compression Device [OM.PC] Per Unit Routine Oth 06/19/20 16:51 Ordered Medication Orders Acetaminophen (Tylenol) 650 mg PO Q6H PRN PRN Reason: Headache/Pain Albuterol/Ipratropium (Duoneb 3.0-0.5 Mg/3 Ml) 3 ml NEB Q4HRRT PRN PRN Reason: Shortness Of Breath/wheezing Sodium Chloride (Saline Flush) 10 ml FLUSH ASDIRECTED PRN PRN Reason: Keep Vein Open Sodium Chloride (Saline Flush) 2.5 ml FLUSH ASDIRECTED PRN PRN Reason: Keep Vein Open Assessment/Plan Comment:: Patient is a 80 y/o F admitted for ACS rule out and bronchitis Admit to obs/tele Oxygen as needed IV fluids IV Rocephin Trend Troponins SCD for dvt ppx Guaifenesin PRN cough Monitor and replete electrolytes as needed
[2020-06-19] MEDS: Acetaminophen 325 MG Tab PO PRN (21:43)
[2020-06-19] MEDS: guaiFENesin/Dextromethorphan 100-10 MG/5 ML Soln 10 ML Cup PO PRN (22:59)
[2020-06-19] MEDS: Sodium Chloride 0.9% 1,000 ML IV SCH (23:14)
[2020-06-20] MEDS: guaiFENesin/Dextromethorphan 100-10 MG/5 ML Soln 10 ML Cup PO PRN ×4 (04:11→21:32)
[2020-06-20 06:30] LABS: CARBON DIOXIDE,CO2 27.8 mmol/L (21.0-32.0); POTASSIUM,K 3.4 mmol/L (3.5-5.1)
[2020-06-20] MEDS ORDERED: Ketorolac 30 MG/ML SDV IVPUSH PRN (08:42)
[2020-06-20] MEDS: Acetaminophen 325 MG Tab PO PRN ×3 (08:45→21:34)
[2020-06-20] MEDS: cefTRIAXone 1 GM in Premix Bag 1 BAG IV SCH (08:50)
[2020-06-20] MEDS ORDERED: cefTRIAXone 1 GM in Sodium Chloride 0.9% 50 ML IV SCH (09:00)
[2020-06-20] MEDS: Sodium Chloride 0.9% 1,000 ML IV SCH (09:19)
--- NOTE | 2020-06-20 11:22 | PCM.PN ---
- General Info Date of Service: 06/20/20 Admission Dx/Problem (Free Text): Admission Diagnosis/Problem Admission Diagnosis/Problem Chest pain, rule out acute myocardial infarction Subjective Update: seen at bedside, feels slightly better but still feels very weak - Review of Systems General: Denies: Fever, Weakness, Fatigue Pulmonary: Denies: Shortness of Breath, Pleuritic Chest Pain Cardiovascular: Denies: Chest Pain, Palpitations Gastrointestinal: Denies: Abdominal Pain, Constipation, Decreased Appetite Genitourinary: Denies: Dysuria, Frequency, Burning, Pain Musculoskeletal: Denies: Neck Pain, Shoulder Pain, Arm Pain - Patient Data Vitals - Most Recent: Last Vital Signs Temp 37.1 C 06/20/20 07:30 Pulse 75 06/20/20 07:30 Resp 16 06/20/20 07:30 BP 139/71 06/20/20 07:30 Pulse Ox 94 L 06/20/20 07:30 Weight - Most Recent: 88 kg I&O - Last 24 Hours: Intake & Output 06/19/20 06/20/20 06/20/20 22:59 06:59 14:59 Intake Total 300 Output Total 550 Balance -250 Lab Results Last 24 Hours: Laboratory Results - last 24 hr 06/19/20 06/19/20 06/19/20 Range/Units 15:15 15:15 15:15 WBC 11.59 H (4.0-11.0) K/uL RBC 3.91 L (4.30-5.90) M/uL Hgb 12.6 (12.0-16.0) g/dL Hct 39.7 (36.0-46.0) % MCV 101.5 H (80.0-98.0) fL MCH 32.2 H (27.0-32.0) pg MCHC 31.7 (31.0-37.0) g/dL RDW Std Deviation 49.3 (28.0-62.0) fl RDW Coeff of Tray 13 (11.0-15.0) % Plt Count 310 (150-400) K/uL MPV 9.20 (7.40-12.00) fL Neut % (Auto) 71.9 (48.0-80.0) % Lymph % (Auto) 15.7 L (16.0-40.0) % [place] % (Auto) 11.3 (0.0-15.0) % Eos % (Auto) 0.9 (0.0-7.0) % Baso % (Auto) 0.2 (0.0-1.5) % Neut # (Auto) 8.3 H (1.4-5.7) K/uL Lymph # (Auto) 1.8 (0.6-2.4) K/uL [place] # (Auto) 1.3 H (0.0-0.8) K/uL Eos # (Auto) 0.1 (0.0-0.7) K/uL Baso # (Auto) 0.0 (0.0-0.1) K/uL Nucleated RBC % 0.0 /100WBC Nucleated RBCs # 0 K/uL INR 0.98 Sodium 139 (136-145) mmol/L Potassium 3.6 (3.5-5.1) mmol/L Chloride 103 (98-107) mmol/L Carbon Dioxide 23.9 (21.0-32.0) mmol/L BUN 12 (7.0-18.0) mg/dL Creatinine 0.9 (0.6-1.0) mg/dL Est Cr Clr Drug Dosing 38.77 mL/min Estimated GFR (MDRD) > 60.0 ml/min Glucose 98 (74-106) mg/dL Calcium 8.5 (8.5-10.1) mg/dL Phosphorus (2.6-4.7) mg/dL Magnesium (1.8-2.4) mg/dL Total Bilirubin 0.5 (0.2-1.0) mg/dL AST 17 (15-37) IU/L ALT 22 (14-63) IU/L Alkaline Phosphatase 78 (46-116) U/L Troponin I < 0.050 (0.000-0.056) ng/mL Total Protein 8.0 (6.4-8.2) g/dL Albumin 3.6 (3.4-5.0) g/dL Globulin 4.4 H (2.6-4.0) g/dL Albumin/Globulin Ratio 0.8 L (0.9-1.6) Urine Color Urine Appearance Urine pH (5.0-8.0) Ur Specific [place] (1.001-1.035) Urine Protein (NEGATIVE) mg/dL Urine Glucose (UA) (NEGATIVE) mg/dL Urine Ketones (NEGATIVE) mg/dL Urine Occult Blood (NEGATIVE) Urine Nitrite (NEGATIVE) Urine Bilirubin (NEGATIVE) Urine Urobilinogen (<2.0) EU/dL Ur Leukocyte Esterase (NEGATIVE) Urine RBC (0-2/HPF) Urine WBC (0-5/HPF) Ur Epithelial Cells (NONE-FEW) Urine Bacteria (NEGATIVE) Urine Mucus (NONE-MOD) COVID-19 (ALDO) (NEGATIVE) 06/19/20 06/19/20 06/19/20 Range/Units 15:50 18:05 20:00 WBC (4.0-11.0) K/uL RBC (4.30-5.90) M/uL Hgb (12.0-16.0) g/dL Hct (36.0-46.0) % MCV (80.0-98.0) fL MCH (27.0-32.0) pg MCHC (31.0-37.0) g/dL RDW Std Deviation (28.0-62.0) fl RDW Coeff of Tray (11.0-15.0) % Plt Count (150-400) K/uL MPV (7.40-12.00) fL Neut % (Auto) (48.0-80.0) % Lymph % (Auto) (16.0-40.0) % [place] % (Auto) (0.0-15.0) % Eos % (Auto) (0.0-7.0) % Baso % (Auto) (0.0-1.5) % Neut # (Auto) (1.4-5.7) K/uL Lymph # (Auto) (0.6-2.4) K/uL [place] # (Auto) (0.0-0.8) K/uL Eos # (Auto) (0.0-0.7) K/uL Baso # (Auto) (0.0-0.1) K/uL Nucleated RBC % /100WBC Nucleated RBCs # K/uL INR Sodium (136-145) mmol/L Potassium (3.5-5.1) mmol/L Chloride (98-107) mmol/L Carbon Dioxide (21.0-32.0) mmol/L BUN (7.0-18.0) mg/dL Creatinine (0.6-1.0) mg/dL Est Cr Clr Drug Dosing mL/min Estimated GFR (MDRD) ml/min Glucose (74-106) mg/dL Calcium (8.5-10.1) mg/dL Phosphorus (2.6-4.7) mg/dL Magnesium (1.8-2.4) mg/dL Total Bilirubin (0.2-1.0) mg/dL AST (15-37) IU/L ALT (14-63) IU/L Alkaline Phosphatase (46-116) U/L Troponin I < 0.050 (0.000-0.056) ng/mL Total Protein (6.4-8.2) g/dL Albumin (3.4-5.0) g/dL Globulin (2.6-4.0) g/dL Albumin/Globulin Ratio (0.9-1.6) Urine Color YELLOW Urine Appearance CLEAR Urine pH 6.0 (5.0-8.0) Ur Specific [place] 1.025 (1.001-1.035) Urine Protein NEGATIVE (NEGATIVE) mg/dL Urine Glucose (UA) NEGATIVE (NEGATIVE) mg/dL Urine Ketones NEGATIVE (NEGATIVE) mg/dL Urine Occult Blood SMALL H (NEGATIVE) Urine Nitrite NEGATIVE (NEGATIVE) Urine Bilirubin NEGATIVE (NEGATIVE) Urine Urobilinogen 0.2 (<2.0) EU/dL Ur Leukocyte Esterase NEGATIVE (NEGATIVE) Urine RBC 3-6 (0-2/HPF) Urine WBC 0-2 (0-5/HPF) Ur Epithelial Cells FEW (NONE-FEW) Urine Bacteria RARE (NEGATIVE) Urine Mucus LIGHT (NONE-MOD) COVID-19 (ADLO) NEGATIVE (NEGATIVE) 06/19/20 06/20/20 06/20/20 Range/Units 21:11 06:02 06:02 WBC 10.64 (4.0-11.0) K/uL RBC 3.66 L (4.30-5.90) M/uL Hgb 11.6 L (12.0-16.0) g/dL Hct 37.4 (36.0-46.0) % MCV 102.2 H (80.0-98.0) fL MCH 31.7 (27.0-32.0) pg MCHC 31.0 (31.0-37.0) g/dL RDW Std Deviation 50.0 (28.0-62.0) fl RDW Coeff of Tray 13 (11.0-15.0) % Plt Count 261 (150-400) K/uL MPV 9.20 (7.40-12.00) fL Neut % (Auto) 69.7 (48.0-80.0) % Lymph % (Auto) 15.7 L (16.0-40.0) % [place] % (Auto) 11.4 (0.0-15.0) % Eos % (Auto) 3.0 (0.0-7.0) % Baso % (Auto) 0.2 (0.0-1.5) % Neut # (Auto) 7.4 H (1.4-5.7) K/uL Lymph # (Auto) 1.7 (0.6-2.4) K/uL [place] # (Auto) 1.2 H (0.0-0.8) K/uL Eos # (Auto) 0.3 (0.0-0.7) K/uL Baso # (Auto) 0.0 (0.0-0.1) K/uL Nucleated RBC % 0.0 /100WBC Nucleated RBCs # 0 K/uL INR Sodium 139 (136-145) mmol/L Potassium 3.4 L (3.5-5.1) mmol/L Chloride 104 (98-107) mmol/L Carbon Dioxide 27.8 (21.0-32.0) mmol/L BUN 14 (7.0-18.0) mg/dL Creatinine 1.0 (0.6-1.0) mg/dL Est Cr Clr Drug Dosing 34.90 mL/min Estimated GFR (MDRD) 53.2 ml/min Glucose 91 (74-106) mg/dL Calcium 8.1 L (8.5-10.1) mg/dL Phosphorus 3.4 (2.6-4.7) mg/dL Magnesium 1.8 (1.8-2.4) mg/dL Total Bilirubin (0.2-1.0) mg/dL AST (15-37) IU/L ALT (14-63) IU/L Alkaline Phosphatase (46-116) U/L Troponin I < 0.050 (0.000-0.056) ng/mL Total Protein (6.4-8.2) g/dL Albumin (3.4-5.0) g/dL Globulin (2.6-4.0) g/dL Albumin/Globulin Ratio (0.9-1.6) Urine Color Urine Appearance Urine pH (5.0-8.0) Ur Specific [place] (1.001-1.035) Urine Protein (NEGATIVE) mg/dL Urine Glucose (UA) (NEGATIVE) mg/dL Urine Ketones (NEGATIVE) mg/dL Urine Occult Blood (NEGATIVE) Urine Nitrite (NEGATIVE) Urine Bilirubin (NEGATIVE) Urine Urobilinogen (<2.0) EU/dL Ur Leukocyte Esterase (NEGATIVE) Urine RBC (0-2/HPF) Urine WBC (0-5/HPF) Ur Epithelial Cells (NONE-FEW) Urine Bacteria (NEGATIVE) Urine Mucus (NONE-MOD) COVID-19 (ALDO) (NEGATIVE) Med Orders - Current: Current Medications Acetaminophen (Tylenol) 650 mg PO Q6H PRN PRN Reason: Headache/Pain Last Admin: 06/20/20 08:45 Dose: 650 mg Documented by: Albuterol/Ipratropium (Duoneb 3.0-0.5 Mg/3 Ml) 3 ml NEB Q4HRRT PRN PRN Reason: Shortness Of Breath/wheezing Guaifenesin/Dextromethorphan (Robitussin Dm) 10 ml PO Q4H PRN PRN Reason: Cough Last Admin: 06/20/20 08:46 Dose: 10 ml Documented by: Sodium Chloride (Normal Saline) 1,000 mls @ 100 mls/hr IV ASDIRECTED [facility] Last Admin: 06/20/20 09:19 Dose: 100 mls/hr Documented by: Ceftriaxone Sodium/Dextrose 1 (gm/ Premix) 50 mls @ 100 mls/hr IV Q24H [facility] Last Admin: 06/20/20 08:50 Dose: 100 mls/hr Documented by: Ketorolac Tromethamine (Toradol) 15 mg IVPUSH Q6H PRN PRN Reason: Pain Sodium Chloride (Saline Flush) 10 ml FLUSH ASDIRECTED PRN PRN Reason: Keep Vein Open Sodium Chloride (Saline Flush) 2.5 ml FLUSH ASDIRECTED PRN PRN Reason: Keep Vein Open Discontinued Medications Benzonatate (Tessalon Perles) 200 mg PO ONETIME ONE Stop: 06/19/20 16:32 Last Admin: 06/19/20 16:50 Dose: 200 mg Documented by: Ceftriaxone Sodium/Dextrose 1 (gm/ Premix) 50 mls @ 100 mls/hr IV ONETIME ONE Stop: 06/19/20 17:04 Last Admin: 06/19/20 16:50 Dose: 100 mls/hr Documented by: Ceftriaxone Sodium 1 gm/ (Sodium Chloride) 50 mls @ 100 mls/hr IV Q24H MARYELLEN - Exam Quality Assessment: No: Supplemental Oxygen General: Alert, Oriented, Cooperative HEENT: No: Scleral Icterus Neck: Supple, Trachea Midline. No: No Thyromegaly Lungs: Clear to Auscultation, Normal Respiratory Effort Cardiovascular: Regular Rate, Regular Rhythm GI/Abdominal Exam: Normal Bowel Sounds, Soft, Non-Tender Extremities: Normal Inspection, Normal Range of Motion Skin: Warm, Intact Neurological: No New Focal Deficit Psy/Mental Status: Alert, Normal Affect Sepsis Event Note - Evaluation Sepsis Screening Result: No Definite Risk - Focused Exam Vital Signs: Vital Signs Temp Pulse Resp BP Pulse Ox 06/20/20 07:30 37.1 C 75 16 139/71 94 L 06/20/20 04:00 36.6 C 72 18 129/66 95 06/19/20 23:22 37.0 C 69 18 112/57 L 95 Date Exam was Performed: 06/20/20 Time Exam was Performed: 20:41 - Problem List & Annotations (1) Bronchitis SNOMED Code(s): 43745878 Code(s): J40 - BRONCHITIS, NOT SPECIFIED ACUTE OR CHRONIC Status: Acute Current Visit: Yes (2) Chest pain, rule out acute myocardial infarction SNOMED Code(s): 23884321 Code(s): R07.9 - CHEST PAIN, UNSPECIFIED Status: Acute Current Visit: Yes (3) Afib SNOMED Code(s): 71274848 Code(s): I48.91 - UNSPECIFIED ATRIAL FIBRILLATION Status: Acute Current Visit: Yes - Problem List Review Problem List Initiated/Reviewed/Updated: Yes - My Orders Last 24 Hours: My Active Orders 06/19/20 Dinner Heart Healthy Diet [DIET] 06/19/20 16:51 Ambulate [RC] ASDIRECTED Oxygen Therapy [RC] PRN VTE/DVT Education [RC] PER UNIT ROUTINE Vital Signs [RC] Q4H Albuterol/Ipratropium [DuoNeb 3.0-0.5 MG/3 ML] 3 ml NEB Q4HRRT PRN Sequential Compression Device [OM.PC] Per Unit Routine 06/19/20 16:52 Antiembolic Devices [RC] PER UNIT ROUTINE RT Aerosol Therapy [RC] ASDIRECTED 06/19/20 18:00 Telemetry Monitoring [Cardiac Monitoring] [RC] Q8H 06/19/20 20:48 Acetaminophen [Tylenol] 650 mg PO Q6H PRN 06/19/20 21:46 Dextromethorphan/guaiFENesin [Robitussin DM] 10 ml PO Q4H PRN 06/19/20 22:00 Sodium Chloride 0.9% [Normal Saline] 1,000 ml IV ASDIRECTED 06/20/20 08:42 Ketorolac [Toradol] 15 mg IVPUSH Q6H PRN 06/20/20 09:00 cefTRIAXone [Rocephin in Dextrose,Iso-Osm 1 GM/50 ML] 1 gm Premix Bag 1 bag IV Q24H - Plan Plan:: Patient is a 80 y/o F admitted for ACS rule out and bronchitis ACS has been ruled out, chest pain musculoskeletal likely Oxygen as needed, so far has been on RA stop IV fluis as patient is eating and drinking well cont IV Rocephin for acute bronchitis, WBC count has resolved SCD for dvt ppx Guaifenesin PRN cough Monitor and replete electrolytes as needed cont metoprolol and anticoagulation for known Afib
[2020-06-20] MEDS ORDERED: Albuterol 8 GM Inhaler INH PRN (11:23)
[2020-06-20] MEDS: Apixaban 5 MG Tab PO SCH ×2 (11:48→21:33)
[2020-06-20] MEDS ORDERED: Metoprolol Succinate 25 MG Tab.ER PO ONE (16:24)
[2020-06-20] MEDS: Albuterol/Ipratropium 3.0-0.5 MG/3 ML Neb Soln NEB PRN ×2 (17:05→22:46)
[2020-06-20] MEDS: predniSONE 5 MG Tab PO SCH (21:32)
[2020-06-20] MEDS: Simvastatin 40 MG Tab PO SCH (21:33)
[2020-06-20] MEDS ORDERED: Diltiazem 25 MG/5 ML SDV IVPUSH ONE (22:39)
[2020-06-21] MEDS: Levothyroxine 75 MCG Tab PO SCH (06:33)
[2020-06-21 06:48] LABS: BLOOD UREA NITROGEN,BUN 9 mg/dL (7.0-18.0); CARBON DIOXIDE,CO2 27.9 mmol/L (21.0-32.0); CHLORIDE,CL 108 mmol/L (98-107); GLUCOSE RANDOM 107 mg/dL (74-106); POTASSIUM,K 3.7 mmol/L (3.5-5.1); SODIUM,NA 142 mmol/L (136-145)
--- NOTE | 2020-06-21 08:50 | PCM.PN ---
- General Info Date of Service: 06/21/20 Admission Dx/Problem (Free Text): Admission Diagnosis/Problem Admission Diagnosis/Problem Chest pain, rule out acute myocardial infarction Subjective Update: Feeling ok this morning, having palpitations with elevated HR on telemetry. No chest pain. Still feeling dyspneic with exertion. Coughing up white sputum. Feels very run down. Doesn't feel ready to go home. Functional Status: Reports: Pain Controlled, Tolerating Diet, Ambulating, Urinating - Review of Systems General: Reports: Fatigue, Malaise HEENT: Denies: Headaches, Visual Changes Pulmonary: Reports: Shortness of Breath, Cough, Sputum, Wheezing Cardiovascular: Denies: Chest Pain Gastrointestinal: Reports: No Symptoms. Denies: Abdominal Pain, Nausea, Vomiting Genitourinary: Reports: No Symptoms. Denies: Dysuria, Frequency, Burning Musculoskeletal: Reports: No Symptoms Skin: Reports: No Symptoms Neurological: Reports: No Symptoms Psychiatric: Reports: No Symptoms - Patient Data Vitals - Most Recent: Last Vital Signs Temp 97.6 F 06/21/20 07:00 Pulse 66 06/21/20 07:00 Resp 19 06/21/20 07:00 BP 134/67 06/21/20 07:00 Pulse Ox 96 06/21/20 07:00 Weight - Most Recent: 88 kg I&O - Last 24 Hours: Intake & Output 06/20/20 06/21/20 06/21/20 22:59 06:59 14:59 Intake Total 600 400 Output Total 750 900 Balance -150 -500 Lab Results Last 24 Hours: Laboratory Results - last 24 hr 06/21/20 06/21/20 Range/Units 06:25 06:25 WBC 6.32 (4.0-11.0) K/uL RBC 3.49 L (4.30-5.90) M/uL Hgb 11.1 L (12.0-16.0) g/dL Hct 35.9 L (36.0-46.0) % MCV 102.9 H (80.0-98.0) fL MCH 31.8 (27.0-32.0) pg MCHC 30.9 L (31.0-37.0) g/dL RDW Std Deviation 50.2 (28.0-62.0) fl RDW Coeff of Tray 13 (11.0-15.0) % Plt Count 249 (150-400) K/uL MPV 9.40 (7.40-12.00) fL Neut % (Auto) 62.0 (48.0-80.0) % Lymph % (Auto) 22.6 (16.0-40.0) % Bond % (Auto) 12.7 (0.0-15.0) % Eos % (Auto) 2.5 (0.0-7.0) % Baso % (Auto) 0.2 (0.0-1.5) % Neut # (Auto) 3.9 (1.4-5.7) K/uL Lymph # (Auto) 1.4 (0.6-2.4) K/uL Bond # (Auto) 0.8 (0.0-0.8) K/uL Eos # (Auto) 0.2 (0.0-0.7) K/uL Baso # (Auto) 0.0 (0.0-0.1) K/uL Nucleated RBC % 0.0 /100WBC Nucleated RBCs # 0 K/uL Sodium 142 (136-145) mmol/L Potassium 3.7 (3.5-5.1) mmol/L Chloride 108 H (98-107) mmol/L Carbon Dioxide 27.9 (21.0-32.0) mmol/L BUN 9 (7.0-18.0) mg/dL Creatinine 0.9 (0.6-1.0) mg/dL Est Cr Clr Drug Dosing 38.77 mL/min Estimated GFR (MDRD) > 60.0 ml/min Glucose 107 H (74-106) mg/dL Calcium 8.1 L (8.5-10.1) mg/dL Phosphorus 4.0 (2.6-4.7) mg/dL Magnesium 1.9 (1.8-2.4) mg/dL Med Orders - Current: Current Medications Acetaminophen (Tylenol) 650 mg PO Q6H PRN PRN Reason: Headache/Pain Last Admin: 06/20/20 21:34 Dose: 650 mg Documented by: Albuterol (Ventolin Hfa) 0 gm INH Q6H PRN PRN Reason: Wheezing Albuterol/Ipratropium (Duoneb 3.0-0.5 Mg/3 Ml) 3 ml NEB Q4HRRT PRN PRN Reason: Shortness Of Breath/wheezing Last Admin: 06/20/20 22:46 Dose: 3 ml Documented by: Apixaban (Eliquis) 5 mg PO BID [facility] Last Admin: 06/20/20 21:33 Dose: 5 mg Documented by: Doxycycline Hyclate (Vibramycin) 100 mg PO BID [facility] Duloxetine HCl (Cymbalta) 60 mg PO DAILY [facility] Guaifenesin/Dextromethorphan (Robitussin Dm) 10 ml PO Q4H PRN PRN Reason: Cough Last Admin: 06/20/20 21:32 Dose: 10 ml Documented by: Ceftriaxone Sodium/Dextrose 1 (gm/ Premix) 50 mls @ 100 mls/hr IV Q24H [facility] Last Admin: 06/20/20 08:50 Dose: 100 mls/hr Documented by: Ketorolac Tromethamine (Toradol) 15 mg IVPUSH Q6H PRN PRN Reason: Pain Levothyroxine Sodium (Levothyroxine) 75 mcg PO ACBREAKFAST [facility] Last Admin: 06/21/20 06:33 Dose: 75 mcg Documented by: Metoprolol Succinate (Toprol Xl) 50 mg PO DAILY [facility] Prednisone (Prednisone) 2.5 mg PO BID [facility] Last Admin: 06/20/20 21:32 Dose: 2.5 mg Documented by: Simvastatin (Zocor) 40 mg PO BEDTIME [facility] Last Admin: 06/20/20 21:33 Dose: 40 mg Documented by: Sodium Chloride (Saline Flush) 10 ml FLUSH ASDIRECTED PRN PRN Reason: Keep Vein Open Sodium Chloride (Saline Flush) 2.5 ml FLUSH ASDIRECTED PRN PRN Reason: Keep Vein Open Discontinued Medications Benzonatate (Tessalon Perles) 200 mg PO ONETIME ONE Stop: 06/19/20 16:32 Last Admin: 06/19/20 16:50 Dose: 200 mg Documented by: Diltiazem HCl (Diltiazem) 20 mg IVPUSH ONETIME ONE Stop: 06/20/20 22:40 Last Admin: 06/20/20 23:10 Dose: 20 mg Documented by: Ceftriaxone Sodium/Dextrose 1 (gm/ Premix) 50 mls @ 100 mls/hr IV ONETIME ONE Stop: 06/19/20 17:04 Last Admin: 06/19/20 16:50 Dose: 100 mls/hr Documented by: Ceftriaxone Sodium 1 gm/ (Sodium Chloride) 50 mls @ 100 mls/hr IV Q24H [facility] Sodium Chloride (Normal Saline) 1,000 mls @ 100 mls/hr IV ASDIRECTED [facility] Last Admin: 06/20/20 09:19 Dose: 100 mls/hr Documented by: Metoprolol Succinate (Toprol Xl) 25 mg PO DAILY [facility] Metoprolol Succinate (Toprol Xl) 25 mg PO ONETIME ONE Stop: 06/20/20 16:25 Last Admin: 06/20/20 16:52 Dose: 25 mg Documented by: - Exam General: Alert, Oriented, Cooperative, Mild Distress (dyspneic with speech), Other (appears not to feel well) Lungs: Rhonchi. No: Wheezing Cardiovascular: Regular Rhythm, Tachycardia GI/Abdominal Exam: Normal Bowel Sounds, Soft, Non-Tender Extremities: Normal Inspection, Normal Range of Motion, Non-Tender, No Pedal Edema Neurological: No New Focal Deficit Psy/Mental Status: Alert, Normal Affect, Normal Mood Sepsis Event Note - Evaluation Sepsis Screening Result: No Definite Risk - Focused Exam Vital Signs: Vital Signs Temp Pulse Resp BP Pulse Ox 06/21/20 07:00 97.6 F 66 19 134/67 96 06/21/20 03:48 97.6 F 71 19 114/59 L 96 06/20/20 23:45 77 20 118/57 L 97 06/20/20 23:15 97.7 F 79 20 129/59 L 97 06/20/20 22:38 89 20 128/79 95 Date Exam was Performed: 06/21/20 Time Exam was Performed: 10:58 - Problem List & Annotations (1) Bronchitis SNOMED Code(s): 24148962 Code(s): J40 - BRONCHITIS, NOT SPECIFIED ACUTE OR CHRONIC Status: Acute Current Visit: Yes (2) Dyspnea SNOMED Code(s): 618716375 Code(s): R06.00 - DYSPNEA, UNSPECIFIED Status: Acute Current Visit: No (3) Arrhythmia SNOMED Code(s): 251483966 Code(s): I49.9 - CARDIAC ARRHYTHMIA, UNSPECIFIED Status: Acute Current Visit: Yes Qualifiers: Arrhythmia type: atrial fibrillation (4) Polymyalgia rheumatica SNOMED Code(s): 12451648 Code(s): M35.3 - POLYMYALGIA RHEUMATICA Status: Chronic Current Visit: Yes (5) Asthma SNOMED Code(s): 315090487 Code(s): J45.909 - UNSPECIFIED ASTHMA, UNCOMPLICATED Status: Chronic Current Visit: Yes (6) Tremor SNOMED Code(s): 33547660 Code(s): R25.1 - TREMOR, UNSPECIFIED Status: Chronic Current Visit: Yes (7) Hypothyroidism SNOMED Code(s): 17894079 Code(s): E03.9 - HYPOTHYROIDISM, UNSPECIFIED Status: Chronic Current Visit: Yes - Problem List Review Problem List Initiated/Reviewed/Updated: Yes - My Orders Last 24 Hours: My Active Orders 06/21/20 09:00 Doxycycline [Vibramycin] 100 mg PO BID Metoprolol Succinate [Toprol XL] 50 mg PO DAILY - Plan Plan:: This 80 year old female admitted with chest pain and ACS rule out and bronchitis 1. Bronchitis, hx asthma - Continues to have dyspnea with exertion and speech - Fatigued and has general malaise - Coughing - Rocephin 1 gm IV daily, will add Doxycycline - Continue Nebulizers PRN - Encourage hydration to loosen secretions - IS - Add Tessalon pearles PRN - Add Solumedrol 40 mg IV today, the prednisone 40 mg tomorrow. Monitor response. 2. Tachycardia, hx Afib - Appears to be SVT, possible a fib intermittently - Metoprolol dosing changed to correct home dose of 75 mg XL daily. - Will monitor today - Continue Eliquis - Electrolytes stable. VTE prophylaxis: Eliquis Dispo: 1 day
[2020-06-21] MEDS ORDERED: Metoprolol Succinate 25 MG Tab.ER PO SCH (09:00)
[2020-06-21] MEDS ORDERED: Metoprolol Succinate 50 MG Tab.ER PO SCH (09:00)
[2020-06-21] MEDS: DULoxetine 60 MG Cap PO SCH (09:01)
[2020-06-21] MEDS: Doxycycline 100 MG Cap PO SCH ×2 (09:01→20:43)
[2020-06-21] MEDS: predniSONE 5 MG Tab PO SCH ×2 (09:01→20:43)
[2020-06-21] MEDS: Apixaban 5 MG Tab PO SCH ×2 (09:01→20:43)
[2020-06-21] MEDS: guaiFENesin/Dextromethorphan 100-10 MG/5 ML Soln 10 ML Cup PO PRN (09:01)
[2020-06-21] MEDS: cefTRIAXone 1 GM in Premix Bag 1 BAG IV SCH (09:10)
[2020-06-21] MEDS: Acetaminophen 325 MG Tab PO PRN (09:22)
[2020-06-21] MEDS ORDERED: Metoprolol Succinate 25 MG Tab.ER PO ONE (10:10)
[2020-06-21] MEDS ORDERED: methylPREDNISolone Sodium Succinate 40 MG/1 ML SDV IV ONE (10:13)
[2020-06-21] MEDS ORDERED: Sodium Chloride 0.9% 500 ML IV SCH (10:15)
[2020-06-21] MEDS: Benzonatate 100 MG Cap PO PRN (10:39)
[2020-06-21] MEDS: Simvastatin 40 MG Tab PO SCH (20:43)
[2020-06-22] MEDS: Benzonatate 100 MG Cap PO PRN (04:01)
[2020-06-22 06:21] LABS: BLOOD UREA NITROGEN,BUN 12 mg/dL (7.0-18.0); CARBON DIOXIDE,CO2 25.7 mmol/L (21.0-32.0); CHLORIDE,CL 105 mmol/L (98-107); GLUCOSE RANDOM 133 mg/dL (74-106); POTASSIUM,K 3.3 mmol/L (3.5-5.1); SODIUM,NA 140 mmol/L (136-145)
[2020-06-22] MEDS: Levothyroxine 75 MCG Tab PO SCH (06:30)
[2020-06-22] MEDS ORDERED: Potassium Chloride 20 MEQ Tab.ER PO ONE (08:02)
[2020-06-22] MEDS: DULoxetine 60 MG Cap PO SCH (08:24)
[2020-06-22] MEDS: Apixaban 5 MG Tab PO SCH (08:24)
[2020-06-22] MEDS: Doxycycline 100 MG Cap PO SCH (08:24)
[2020-06-22] MEDS: cefTRIAXone 1 GM in Premix Bag 1 BAG IV SCH (08:26)
[2020-06-22] MEDS ORDERED: Metoprolol Succinate 50 MG Tab.ER PO SCH (09:00)
[2020-06-22] MEDS ORDERED: predniSONE 20 MG Tab PO SCH (09:00)
[2020-06-22 10:25] VITALS: BP 133/75; PULSE 71
--- NOTE | 2020-06-22 11:09 | PCM.DCSUM1 ---
Discharge Summary - Hospital Course Brief History: Patient is an 80-year-old female who presents to the emergency room with complaints of cough, productive sputum, clear in color, shortness of breath and chest tightness over the past 2 days. She states she has generalized body aches and does not feel well. She also has been throwing up due to her coughing spells. Patient denies any fever, chills, change in vision, syncope or near syncope. Denies any back pain, abdominal pain, nausea, vomiting, diarrhea, constipation or dysuria. Has not noted any blood in urine or stool. Patient has been eating and drinking appropriately. In the ER patient had slightly elevated wbc count of 11.5, rest of the lab work was reassuring. CXRdid t show any infiltrate, troponin was negative, EKG non ischemic, Patient is being admitted for ACS rule out and possible bronchitis. Diagnosis: Stroke: No - Discharge Data Discharge Date: 06/22/20 Discharge Disposition: Home, Self-Care 01 Condition: Stable - Referral to Home Health Primary Care Physician: Florina Randhawa, DO - Discharge Diagnosis/Problem(s) (1) Bronchitis SNOMED Code(s): 41141060 ICD Code: J40 - BRONCHITIS, NOT SPECIFIED ACUTE OR CHRONIC Status: Acute Current Visit: Yes (2) Dyspnea SNOMED Code(s): 883784861 ICD Code: R06.00 - DYSPNEA, UNSPECIFIED Status: Acute Current Visit: No (3) Arrhythmia SNOMED Code(s): 707566351 ICD Code: I49.9 - CARDIAC ARRHYTHMIA, UNSPECIFIED Status: Acute Current Visit: Yes Qualifiers: Arrhythmia type: atrial fibrillation (4) Polymyalgia rheumatica SNOMED Code(s): 82183907 ICD Code: M35.3 - POLYMYALGIA RHEUMATICA Status: Chronic Current Visit: Yes (5) Asthma SNOMED Code(s): 583688612 ICD Code: J45.909 - UNSPECIFIED ASTHMA, UNCOMPLICATED Status: Chronic Current Visit: Yes (6) Tremor SNOMED Code(s): 35400500 ICD Code: R25.1 - TREMOR, UNSPECIFIED Status: Chronic Current Visit: Yes (7) Hypothyroidism SNOMED Code(s): 61605218 ICD Code: E03.9 - HYPOTHYROIDISM, UNSPECIFIED Status: Chronic Current Visit: Yes - Patient Summary/Data Hospital Course: Admitting Diagnoses: Chest pain ACS rule out Bronchitis Discharge Diagnoses: Chest pain ACS rule out Bronchitis Echo was admitted due to chest pain and dyspnea. ACS was ruled out, pain likely related to coughing and bronchitis. She was treated with Rocephin and Doxycycline along with steroids. She is doing much better today. She will be kept on Doxycycline for 4 more days along with short Prednisone taper of 40 mg for 4 days. She is to hold prednisone 2.5 BID and restart once taper is finished. During her stay afib returned, but Metoprolol dosing was incorrect from home list. Home dose restarted and afib resolved. She is to rest and relax today. She is to return to ED or clinic if concerns should return. PCP in 1 week - Patient Instructions Diet: Heart Healthy Diet Activity: No Strenuous Activities, Rest and Relax Today Showering/Bathing: May Shower Notify Provider of: Fever, Increased Pain, Swelling and Redness, Drainage, Nausea and/or Vomiting - Discharge Plan *PRESCRIPTION DRUG MONITORING PROGRAM REVIEWED*: Not Applicable *COPY OF PRESCRIPTION DRUG MONITORING REPORT IN PATIENT KRISTI: Not Applicable Prescriptions/Med Rec: predniSONE 40 mg PO WITHBREAKFAST #8 tablet Benzonatate [Tessalon Perle] 100 mg PO TID PRN #30 capsule PRN Reason: Cough Albuterol [Ventolin HFA] 2 puff INH Q6H PRN #1 inhaler PRN Reason: Wheezing Doxycycline [Vibramycin] 100 mg PO BID #8 cap Home Medications: Home Meds Levothyroxine 75 mcg PO ACBREAKFAST 09/29/15 [History] Simvastatin [Zocor] 40 mg PO BEDTIME 06/04/18 [History] Apixaban [Eliquis] 5 mg PO BID 12/26/19 [History] Cyclobenzaprine [Flexeril] 10 mg PO TID PRN 12/26/19 [History] DULoxetine HCl [Cymbalta] 60 mg PO DAILY 12/26/19 [History] Hydrocodone/Acetaminophen [Hydrocodone-Acetamin 5-325 mg] 1 tab PO Q4HR 06/21/20 [History] Metoprolol Succinate [Toprol XL 50mg] 75 mg PO DAILY 06/21/20 [History] Albuterol [Ventolin HFA] 2 puff INH Q6H PRN #1 inhaler 06/22/20 [Rx] Benzonatate [Tessalon Perle] 100 mg PO TID PRN #30 capsule 06/22/20 [Rx] Doxycycline [Vibramycin] 100 mg PO BID #8 cap 06/22/20 [Rx] predniSONE 40 mg PO WITHBREAKFAST #8 tablet 06/22/20 [Rx] predniSONE [Prednisone] 2.5 mg PO BID #0 06/22/20 [Rx] Oxygen Therapy Mode: Room Air Patient Handouts: Albuterol inhalation aerosol, Sinus Tachycardia, Doxycycline tablets or capsules, Nonspecific Chest Pain, Adult, [id number], Prednisone tablets, Benzonatate capsules Referrals: Morteza Lee MD [Physician] - 06/29/20 2:00 pm - Discharge Summary/Plan Comment DC Time >30 min.: No - Patient Data Vitals - Most Recent: Last Vital Signs Temp 98.2 F 06/22/20 08:00 Pulse 75 06/22/20 08:25 Resp 18 06/22/20 08:00 BP 123/85 06/22/20 08:25 Pulse Ox 95 06/22/20 08:00 Weight - Most Recent: 88 kg I&O - Last 24 hours: Intake & Output 06/21/20 06/22/20 06/22/20 22:59 06:59 14:59 Intake Total 1020 350 Output Total 1125 800 Balance -105 -450 Lab Results - Last 24 hrs: Laboratory Results - last 24 hr 06/22/20 06/22/20 Range/Units 05:20 05:20 WBC 8.52 (4.0-11.0) K/uL RBC 3.59 L (4.30-5.90) M/uL Hgb 11.2 L (12.0-16.0) g/dL Hct 35.9 L (36.0-46.0) % MCV 100.0 H (80.0-98.0) fL MCH 31.2 (27.0-32.0) pg MCHC 31.2 (31.0-37.0) g/dL RDW Std Deviation 46.8 (28.0-62.0) fl RDW Coeff of Tray 13 (11.0-15.0) % Plt Count 320 (150-400) K/uL MPV 9.70 (7.40-12.00) fL Neut % (Auto) 76.2 (48.0-80.0) % Lymph % (Auto) 16.2 (16.0-40.0) % Nolan % (Auto) 7.6 (0.0-15.0) % Eos % (Auto) 0.0 (0.0-7.0) % Baso % (Auto) 0.0 (0.0-1.5) % Neut # (Auto) 6.5 H (1.4-5.7) K/uL Lymph # (Auto) 1.4 (0.6-2.4) K/uL Nolan # (Auto) 0.7 (0.0-0.8) K/uL Eos # (Auto) 0.0 (0.0-0.7) K/uL Baso # (Auto) 0.0 (0.0-0.1) K/uL Nucleated RBC % 0.0 /100WBC Nucleated RBCs # 0 K/uL Sodium 140 (136-145) mmol/L Potassium 3.3 L (3.5-5.1) mmol/L Chloride 105 (98-107) mmol/L Carbon Dioxide 25.7 (21.0-32.0) mmol/L BUN 12 (7.0-18.0) mg/dL Creatinine 0.8 (0.6-1.0) mg/dL Est Cr Clr Drug Dosing 43.62 mL/min Estimated GFR (MDRD) > 60.0 ml/min Glucose 133 H (74-106) mg/dL Calcium 8.4 L (8.5-10.1) mg/dL Magnesium 1.9 (1.8-2.4) mg/dL Med Orders - Current: Current Medications Acetaminophen (Tylenol) 650 mg PO Q6H PRN PRN Reason: Headache/Pain Last Admin: 06/21/20 09:22 Dose: 650 mg Documented by: Albuterol (Ventolin Hfa) 0 gm INH Q6H PRN PRN Reason: Wheezing Albuterol/Ipratropium (Duoneb 3.0-0.5 Mg/3 Ml) 3 ml NEB Q4HRRT PRN PRN Reason: Shortness Of Breath/wheezing Last Admin: 06/20/20 22:46 Dose: 3 ml Documented by: Apixaban (Eliquis) 5 mg PO BID [facility] Last Admin: 06/22/20 08:24 Dose: 5 mg Documented by: Benzonatate (Tessalon Perles) 200 mg PO TID PRN PRN Reason: Cough Last Admin: 06/22/20 04:01 Dose: 200 mg Documented by: Doxycycline Hyclate (Vibramycin) 100 mg PO BID [facility] Last Admin: 06/22/20 08:24 Dose: 100 mg Documented by: Duloxetine HCl (Cymbalta) 60 mg PO DAILY [facility] Last Admin: 06/22/20 08:24 Dose: 60 mg Documented by: Guaifenesin/Dextromethorphan (Robitussin Dm) 10 ml PO Q4H PRN PRN Reason: Cough Last Admin: 06/21/20 09:01 Dose: 10 ml Documented by: Ceftriaxone Sodium/Dextrose 1 (gm/ Premix) 50 mls @ 100 mls/hr IV Q24H [facility] Last Admin: 06/22/20 08:26 Dose: 100 mls/hr Documented by: Ketorolac Tromethamine (Toradol) 15 mg IVPUSH Q6H PRN PRN Reason: Pain Levothyroxine Sodium (Levothyroxine) 75 mcg PO ACBREAKFAST [facility] Last Admin: 06/22/20 06:30 Dose: 75 mcg Documented by: Metoprolol Succinate (Toprol Xl) 75 mg PO DAILY [facility] Last Admin: 06/22/20 08:25 Dose: 75 mg Documented by: Prednisone (Prednisone) 40 mg PO WITHBREAKFAST [facility] Last Admin: 06/22/20 08:25 Dose: 40 mg Documented by: Simvastatin (Zocor) 40 mg PO BEDTIME [facility] Last Admin: 06/21/20 20:43 Dose: 40 mg Documented by: Sodium Chloride (Saline Flush) 10 ml FLUSH ASDIRECTED PRN PRN Reason: Keep Vein Open Sodium Chloride (Saline Flush) 2.5 ml FLUSH ASDIRECTED PRN PRN Reason: Keep Vein Open Discontinued Medications Benzonatate (Tessalon Perles) 200 mg PO ONETIME ONE Stop: 06/19/20 16:32 Last Admin: 06/19/20 16:50 Dose: 200 mg Documented by: Diltiazem HCl (Diltiazem) 20 mg IVPUSH ONETIME ONE Stop: 06/20/20 22:40 Last Admin: 06/20/20 23:10 Dose: 20 mg Documented by: Ceftriaxone Sodium/Dextrose 1 (gm/ Premix) 50 mls @ 100 mls/hr IV ONETIME ONE Stop: 06/19/20 17:04 Last Admin: 06/19/20 16:50 Dose: 100 mls/hr Documented by: Ceftriaxone Sodium 1 gm/ (Sodium Chloride) 50 mls @ 100 mls/hr IV Q24H [facility] Sodium Chloride (Normal Saline) 1,000 mls @ 100 mls/hr IV ASDIRECTED [facility] Last Admin: 06/20/20 09:19 Dose: 100 mls/hr Documented by: Sodium Chloride (Normal Saline) 500 mls @ 200 mls/hr IV .BOLUS [facility] Last Admin: 06/21/20 10:30 Dose: 200 mls/hr Documented by: Methylprednisolone Sodium Succinate (Solu-Medrol) 40 mg IV ONETIME ONE Stop: 06/21/20 10:14 Last Admin: 06/21/20 10:34 Dose: 40 mg Documented by: Metoprolol Succinate (Toprol Xl) 25 mg PO DAILY [facility] Metoprolol Succinate (Toprol Xl) 25 mg PO ONETIME ONE Stop: 06/20/20 16:25 Last Admin: 06/20/20 16:52 Dose: 25 mg Documented by: Metoprolol Succinate (Toprol Xl) 50 mg PO DAILY [facility] Last Admin: 06/21/20 09:21 Dose: 50 mg Documented by: Metoprolol Succinate (Toprol Xl) 25 mg PO ONETIME ONE Stop: 06/21/20 10:11 Last Admin: 06/21/20 10:33 Dose: 25 mg Documented by: Potassium Chloride (Klor-Con M20) 40 meq PO ONETIME ONE Stop: 06/22/20 08:03 Last Admin: 06/22/20 08:24 Dose: 40 meq Documented by: Prednisone (Prednisone) 2.5 mg PO BID [facility] Last Admin: 06/21/20 20:43 Dose: 2.5 mg Documented by: - Exam General: Reports: Alert, Oriented, Cooperative, No Acute Distress Neck: Reports: Other (sinus congestion and hoarse voice much improved.) Lungs: Reports: Normal Respiratory Effort, Rhonchi (improving to R). Denies: Wheezing Cardiovascular: Reports: Regular Rate, Regular Rhythm GI/Abdominal Exam: Normal Bowel Sounds, Soft, Non-Tender Extremities: Normal Inspection, Normal Range of Motion, Non-Tender, No Pedal Edema Neurological: Reports: No New Focal Deficit Psy/Mental Status: Reports: Alert, Normal Affect, Normal Mood
== END 2020-06-22 12:44 | disposition home or self-care (01) | DRG 203 ==
LOC: MW.ED 14:29 → MW.MS 17:28 → OBSVTOIN 06-21 18:55 → MW.MS 06-21 19:03
PROVIDERS: ADMIT Student in an Organized Health Care Education/Training Program; ATTEND Student in an Organized Health Care Education/Training Program
DX: J20.9 Acute bronchitis, unspecified (principal); R07.9 Chest pain, unspecified; R06.00 Dyspnea, unspecified; I49.9 Cardiac arrhythmia, unspecified; R53.1 Weakness; R00.0 Tachycardia, unspecified; I48.91 Unspecified atrial fibrillation; M35.3 Polymyalgia rheumatica; J45.909 Unspecified asthma, uncomplicated; R25.1 Tremor, unspecified; E03.9 Hypothyroidism, unspecified; H54.7 Unspecified visual loss; Z80.0 Family history of malignant neoplasm of digestive organs; N28.9 Disorder of kidney and ureter, unspecified; E78.00 Pure hypercholesterolemia, unspecified; E66.9 Obesity, unspecified; Z68.35 Body mass index [BMI] 35.0-35.9, adult; Z90.49 Acquired absence of other specified parts of digestive tract; Z79.52 Long term (current) use of systemic steroids; Z79.890 Hormone replacement therapy; Z20.828 Contact with and (suspected) exposure to other viral communicable diseases
CPT/HCPCS: 36415 ×3; 71045; 80048 ×2; 80053; 81001; 83735 ×2; 84100 ×2; 84484 ×3; 85025 ×3; 85610; 93005; 94640 ×2; 96365; 99285; A9270 ×23; J0696 ×3; J2920; J3490; J7030 ×2; J7040; J7512 ×2; U0002; 96361; 96375; 96376; G0378; J7620-GY

== ENCOUNTER 2021-02-01 11:02 | Emergency (ER) | payer MEDICARE, OTHER ==
[2021-02-01] MEDS ORDERED: Sodium Chloride 0.9% 2.5 ML Syringe FLUSH PRN (11:06)
[2021-02-01] MEDS ORDERED: Aspirin 81 MG Tab.Chew PO ONE (11:06)
[2021-02-01] MEDS ORDERED: Sodium Chloride 0.9% 10 ML Syringe FLUSH PRN (11:06)
--- NOTE | 2021-02-01 11:06 | EDM.PDOC ---
ED HPI GENERAL MEDICAL PROBLEM - General Stated Complaint: CHEST PAIN UTI Time Seen by Provider: 02/01/21 11:04 Source of Information: Reports: Patient History Limitations: Reports: No Limitations - History of Present Illness INITIAL COMMENTS - FREE TEXT/NARRATIVE: 80-year-old female past medical history paroxysmal A. fib, hypertension, hyperlipidemia presents for chest pain. Patient states that for the last 2 days she has noted an anterior chest pain radiating to her left chest and back but feels like pressure. Associated with shortness of breath. She did become diaphoretic when the pain first started. It has gradually improved with time. She notes very mild chest pressure sensation currently. She did take a nitroglycerin when it first happened and this helped. Went to her clinic physic andi gil who was sent to the emergency department for further work-up. Patient notes she had a stress test with cardiology about 2 months ago that was normal she is in a bradycardiac cath. chest Pain Score (Numeric/FACES): 0 - Related Data Allergies Allergy/AdvReac Type Severity Reaction Status Date / Time No Known Allergies Allergy Verified 02/01/21 11:07 Home Meds: Home Meds Levothyroxine 75 mcg PO ACBREAKFAST 09/29/15 [History] Simvastatin [Zocor] 40 mg PO BEDTIME 06/04/18 [History] Apixaban [Eliquis] 5 mg PO BID 12/26/19 [History] Cyclobenzaprine [Flexeril] 10 mg PO TID PRN 12/26/19 [History] DULoxetine HCl [Cymbalta] 60 mg PO DAILY 12/26/19 [History] Hydrocodone/Acetaminophen [Hydrocodone-Acetamin 5-325 mg] 1 tab PO Q4HR 06/21/20 [History] Metoprolol Succinate [Toprol XL 50mg] 75 mg PO DAILY 06/21/20 [History] Albuterol [Ventolin HFA] 2 puff INH Q6H PRN #1 inhaler 06/22/20 [Rx] Benzonatate [Tessalon Perle] 100 mg PO TID PRN #30 capsule 06/22/20 [Rx] Doxycycline [Vibramycin] 100 mg PO BID #8 cap 06/22/20 [Rx] predniSONE 40 mg PO WITHBREAKFAST #8 tablet 06/22/20 [Rx] predniSONE [Prednisone] 2.5 mg PO BID #0 07/28/20 [Rx] Non-Formulary Medication [NF Drug] 1 each 02/01/21 [History] Past Medical History HEENT History: Reports: Allergic Rhinitis Other HEENT History: wears glasses Cardiovascular History: Reports: Arrhythmia, High Cholesterol Other Cardiovascular History: Occasional palpitations, 'do not know if it's nerves or what" Respiratory History: Reports: Asthma Gastrointestinal History: Reports: None Other Gastrointestinal History: Indigestion, pain to back Genitourinary History: Reports: None Other Genitourinary History: Urgency at times, Recent discovery of abnormality on one of my kidneys 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: Musculoskeletal History: Reports: None Neurological History: Reports: Other (See Below) Other Neuro History: Tremor Psychiatric History: Reports: None Other Psychiatric History: Get a little anxious on occasion Endocrine/Metabolic History: Reports: Hypothyroidism, Obesity/BMI 30+ Other Endocrine/Metabolic History: hypothyroidism Hematologic History: Reports: None Immunologic History: Reports: None Oncologic (Cancer) History: Reports: None Dermatologic History: Reports: None - Infectious Disease History Infectious Disease History: Reports: Chicken Pox, Measles, Mumps - Past Surgical History Head Surgeries/Procedures: Reports: None HEENT Surgical History: Reports: None Cardiovascular Surgical History: Reports: None Respiratory Surgical History: Reports: None GI Surgical History: Reports: Cholecystectomy, Colonoscopy, Other (See Below) Other GI Surgeries/Procedures: bowel surgery Musculoskeletal Surgical History: Reports: Other (See Below) 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 ED EXAM, GENERAL - Physical Exam Exam: See Below Exam Limited By: No Limitations General Appearance: Alert, WD/WN, No Apparent Distress Throat/Mouth: Normal Voice, No Airway Compromise Head: Atraumatic, Normocephalic Neck: Normal Inspection Respiratory/Chest: No Respiratory Distress, Lungs Clear, Normal Breath Sounds, No Accessory Muscle Use Cardiovascular: Normal Peripheral Pulses, Regular Rate, Rhythm, No Edema GI/Abdominal: Soft, Non-Tender Neurological: Alert #1 Interpretation EKG Date: 02/01/21 Time: 11:03 Rhythm: NSR Rate (Beats/Min): 69 [place]: Normal P-Wave: Present QRS: Normal ST-T: Normal QT: Normal SD/PQ Interval: 155 EKG Interpretation Comments: No evidence of acute ischemia Course - Vital Signs Last Recorded V/S: Last Vital Signs Temp 96.9 F 02/01/21 11:08 Pulse 73 02/01/21 11:08 Resp 18 02/01/21 11:08 BP 148/79 H 02/01/21 11:08 Pulse Ox 96 02/01/21 11:08 - Orders/Labs/Meds Orders: Active Orders 24 hr Category Date Time Status Cardiac Monitoring [RC] . DIRECTED Care 02/01/21 11:06 Active EKG Documentation Completion [RC] STAT Care 02/01/21 11:06 Active Pulse Oximetry [RC] ASDIRECTED Care 02/01/21 11:06 Active B-TYPE NATRIURETIC PEPTIDE,BNP [CHEM] Stat Lab 02/01/21 11:07 Ordered UA W/OLIVIER RFLX IF INDICATED [URIN] Stat Lab 02/01/21 11:07 Ordered Sodium Chloride 0.9% [Saline Flush] Med 02/01/21 11:06 Active 10 ml FLUSH ASDIRECTED PRN Sodium Chloride 0.9% [Saline Flush] Med 02/01/21 11:06 Active 2.5 ml FLUSH ASDIRECTED PRN Saline Lock Insert [OM.PC] Stat Oth 02/01/21 11:06 Ordered Labs: Laboratory Tests 02/01/21 02/01/21 02/01/21 Range/Units 11:15 11:34 11:34 WBC 7.36 (4.0-11.0) K/uL RBC 4.04 L (4.30-5.90) M/uL Hgb 13.6 (12.0-16.0) g/dL Hct 41.6 (36.0-46.0) % MCV 103.0 H (80.0-98.0) fL MCH 33.7 H (27.0-32.0) pg MCHC 32.7 (31.0-37.0) g/dL RDW Std Deviation 48.8 (28.0-62.0) fl RDW Coeff of Tray 13 (11.0-15.0) % Plt Count 293 (150-400) K/uL MPV 9.60 (7.40-12.00) fL Neut % (Auto) 73.6 (48.0-80.0) % Lymph % (Auto) 12.8 L (16.0-40.0) % [place] % (Auto) 11.7 (0.0-15.0) % Eos % (Auto) 1.8 (0.0-7.0) % Baso % (Auto) 0.1 (0.0-1.5) % Neut # (Auto) 5.4 (1.4-5.7) K/uL Lymph # (Auto) 0.9 (0.6-2.4) K/uL [place] # (Auto) 0.9 H (0.0-0.8) K/uL Eos # (Auto) 0.1 (0.0-0.7) K/uL Baso # (Auto) 0.0 (0.0-0.1) K/uL Nucleated RBC % 0.0 /100WBC Nucleated RBCs # 0 K/uL INR 1.00 APTT 24.1 (18.6-31.3) SEC Sodium (136-145) mmol/L Potassium (3.5-5.1) mmol/L Chloride (98-107) mmol/L Carbon Dioxide (21.0-32.0) mmol/L BUN (7.0-18.0) mg/dL Creatinine (0.6-1.0) mg/dL Est Cr Clr Drug Dosing mL/min Estimated GFR (MDRD) ml/min Glucose (74-106) mg/dL Calcium (8.5-10.1) mg/dL Magnesium (1.8-2.4) mg/dL Total Bilirubin (0.2-1.0) mg/dL AST (15-37) IU/L ALT (14-63) IU/L Alkaline Phosphatase (46-116) U/L Troponin I (0.000-0.056) ng/mL Total Protein (6.4-8.2) g/dL Albumin (3.4-5.0) g/dL Globulin (2.6-4.0) g/dL Albumin/Globulin Ratio (0.9-1.6) SARS-CoV-2 RNA (ALDO) NEGATIVE (NEGATIVE) 02/01/21 Range/Units 11:34 WBC (4.0-11.0) K/uL RBC (4.30-5.90) M/uL Hgb (12.0-16.0) g/dL Hct (36.0-46.0) % MCV (80.0-98.0) fL MCH (27.0-32.0) pg MCHC (31.0-37.0) g/dL RDW Std Deviation (28.0-62.0) fl RDW Coeff of Tray (11.0-15.0) % Plt Count (150-400) K/uL MPV (7.40-12.00) fL Neut % (Auto) (48.0-80.0) % Lymph % (Auto) (16.0-40.0) % [place] % (Auto) (0.0-15.0) % Eos % (Auto) (0.0-7.0) % Baso % (Auto) (0.0-1.5) % Neut # (Auto) (1.4-5.7) K/uL Lymph # (Auto) (0.6-2.4) K/uL [place] # (Auto) (0.0-0.8) K/uL Eos # (Auto) (0.0-0.7) K/uL Baso # (Auto) (0.0-0.1) K/uL Nucleated RBC % /100WBC Nucleated RBCs # K/uL INR APTT (18.6-31.3) SEC Sodium 139 (136-145) mmol/L Potassium 3.8 (3.5-5.1) mmol/L Chloride 104 (98-107) mmol/L Carbon Dioxide 23.1 (21.0-32.0) mmol/L BUN 15 (7.0-18.0) mg/dL Creatinine 1.0 (0.6-1.0) mg/dL Est Cr Clr Drug Dosing 34.90 mL/min Estimated GFR (MDRD) 53.2 ml/min Glucose 90 (74-106) mg/dL Calcium 8.6 (8.5-10.1) mg/dL Magnesium 1.9 (1.8-2.4) mg/dL Total Bilirubin 0.4 (0.2-1.0) mg/dL AST 19 (15-37) IU/L ALT 30 (14-63) IU/L Alkaline Phosphatase 73 (46-116) U/L Troponin I < 0.050 (0.000-0.056) ng/mL Total Protein 7.0 (6.4-8.2) g/dL Albumin 3.2 L (3.4-5.0) g/dL Globulin 3.8 (2.6-4.0) g/dL Albumin/Globulin Ratio 0.8 L (0.9-1.6) SARS-CoV-2 RNA (ALDO) (NEGATIVE) - Re-Assessments/Exams Free Text/Narrative Re-Assessment/Exam: 02/01/21 12:46 Patient's labs are all negative. I offered patient observation admission for chest pain and serial troponins but she declines. I think this is reasonable. Her initial troponin is negative and patient is no longer with pain. Her pain was 2 days ago and then again last night with mild discomfort this morning. If she would have had an NSTEMI we would have seen on labs. She does agree to follow-up with Dr. Romero spaulding. Her daughter is also with her at bedside and e nsures that she will get follow-up. Patient is encouraged to return to the emergency department immediately if her pain reoccurs or if she has any new symptoms. Departure - Departure Time of Disposition: 12:47 Disposition: Home, Self-Care 01 Condition: Good Clinical Impression: Chest pain Qualifiers: Chest pain type: unspecified Qualified Code(s): R07.9 - Chest pain, unspecified - Discharge Information Instructions: Nonspecific Chest Pain, Adult Additional Instructions: The following information is given to patients seen in the emergency department who are being discharged to home. This information is to outline your options for follow-up care. We provide all patients seen in our emergency department with a follow-up referral. The need for follow-up, as well as the timing and circumstances, are variable depending upon the specifics of your emergency department visit. If you don't have a primary care physician on staff, we will provide you with a referral. We always advise you to contact your personal physician following an emergency department visit to inform them of the circumstance of the visit and for follow-up with them and/or the need for any referrals to a consulting specialist. The emergency department will also refer you to a specialist when appropriate. This referral assures that you have the opportunity for follow-up care with a specialist. All of these measure are taken in an effort to provide you with optimal care, which includes your follow-up. Under all circumstances we always encourage you to contact your private physician who remains a resource for coordinating your care. When calling for follow-up care, please make the office aware that this follow-up is from your recent emergency room visit. If for any reason you are refused follow-up, please contact the [facility] Emergency Department at and asked to speak to the emergency department charge nurse. Please follow up with your primary care physician. If you do not have a primary care physician, see below: [facility] [address] [place] [id number] [facility] [address] [place] [id number] [facility] [address] [place] [id number] Sepsis Event Note (ED) - Focused Exam Vital Signs: Vital Signs Temp Pulse Resp BP Pulse Ox 02/01/21 11:08 96.9 F 73 18 148/79 H 96 - My Orders Last 24 Hours: My Active Orders 02/01/21 11:06 Cardiac Monitoring [RC] . DIRECTED EKG Documentation Completion [RC] STAT Pulse Oximetry [RC] ASDIRECTED Sodium Chloride 0.9% [Saline Flush] 10 ml FLUSH ASDIRECTED PRN Sodium Chloride 0.9% [Saline Flush] 2.5 ml FLUSH ASDIRECTED PRN Saline Lock Insert [OM.PC] Stat 02/01/21 11:07 B-TYPE NATRIURETIC PEPTIDE,BNP [CHEM] Stat UA W/OLIVIER RFLX IF INDICATED [URIN] Stat - Assessment/Plan Last 24 Hours: My Active Orders 02/01/21 11:06 Cardiac Monitoring [RC] . DIRECTED EKG Documentation Completion [RC] STAT Pulse Oximetry [RC] ASDIRECTED Sodium Chloride 0.9% [Saline Flush] 10 ml FLUSH ASDIRECTED PRN Sodium Chloride 0.9% [Saline Flush] 2.5 ml FLUSH ASDIRECTED PRN Saline Lock Insert [OM.PC] Stat 02/01/21 11:07 B-TYPE NATRIURETIC PEPTIDE,BNP [CHEM] Stat UA W/OLIVIER RFLX IF INDICATED [URIN] Stat
--- NOTE | 2021-02-01 11:50 | CR ---
INDICATION: Chest pain. TECHNIQUE: Chest 1 view. COMPARISON: Chest radiograph 06/19/2020. FINDINGS: No focal consolidation, pleural effusion, or pneumothorax. Linear atelectasis or scarring in the left lung base. Normal heart size and pulmonary vascularity. Slight aortic arch calcification. Again seen is colonic interposition under the right hemidiaphragm. Surgical clips right upper quadrant. Right convex thoracic curve. IMPRESSION: No acute cardiopulmonary findings. Dictated by Eugenia Mayo MD @ Feb 01 2021 11:45AM Signed by Dr. Eugenia Mayo @ Feb 01 2021 11:48AM
[2021-02-01 12:13] LABS: BLOOD UREA NITROGEN,BUN 15 mg/dL (7.0-18.0); CARBON DIOXIDE,CO2 23.1 mmol/L (21.0-32.0); CHLORIDE,CL 104 mmol/L (98-107); GLUCOSE RANDOM 90 mg/dL (74-106); POTASSIUM,K 3.8 mmol/L (3.5-5.1); SODIUM,NA 139 mmol/L (136-145)
[2021-02-01 13:03] VITALS: BP 112/56; PULSE 61
== END 2021-02-01 13:03 | disposition home or self-care (01) ==
LOC: MW.ED 11:02
DX: R07.9 Chest pain, unspecified (principal); E78.00 Pure hypercholesterolemia, unspecified; J45.909 Unspecified asthma, uncomplicated; E03.9 Hypothyroidism, unspecified; E66.9 Obesity, unspecified; E78.5 Hyperlipidemia, unspecified; I10 Essential (primary) hypertension; I48.91 Unspecified atrial fibrillation; Z79.01 Long term (current) use of anticoagulants; Z20.822 Contact with and (suspected) exposure to COVID-19; Z79.899 Other long term (current) drug therapy
CPT/HCPCS: 36415; 71045; 80053; 83735; 83880; 84484; 85025; 85610; 85730; 93005; 99285; A9270; U0002; 93010; 99284

== ENCOUNTER 2021-06-28 08:32 | Emergency (ER) | payer MEDICARE, OTHER ==
--- NOTE | 2021-06-28 09:02 | EDM.PDOC ---
ED HPI GENERAL MEDICAL PROBLEM - General Chief Complaint: General Stated Complaint: RASH IN [facility] Time Seen by Provider: 06/28/21 08:33 Source of Information: Reports: Patient History Limitations: Reports: No Limitations - History of Present Illness INITIAL COMMENTS - FREE TEXT/NARRATIVE: 81-year-old female past medical history atrial fibrillation, asthma, hypothyroidism presents for suprapubic and vaginal rash. Patient notes that she has been dealing with this for roughly 1 month. She did see her [facility]AREPOINT ADMIN yesterday and states that she was prescribed a couple of medications but notes that the pharmacy did not get the prescription. She notes that she was using a cream about a month ago which initially helped but symptoms returned. She denies any fevers. She states the rash feels like a burning and itchy sensation. She does note burning with urination. abd Pain Score (Numeric/FACES): 6 - Related Data Allergies Allergy/AdvReac Type Severity Reaction Status Date / Time No Known Allergies Allergy Verified 02/01/21 11:07 Home Meds: Home Meds Levothyroxine 75 mcg PO ACBREAKFAST 09/29/15 [History] Simvastatin [Zocor] 40 mg PO BEDTIME 06/04/18 [History] Apixaban [Eliquis] 5 mg PO BID 12/26/19 [History] DULoxetine HCl [Cymbalta] 60 mg PO DAILY 12/26/19 [History] Albuterol [Ventolin HFA] 2 puff INH Q6H PRN #1 inhaler 06/22/20 [Rx] Benzonatate [Tessalon Perle] 100 mg PO TID PRN #30 capsule 06/22/20 [Rx] predniSONE [Prednisone] 2.5 mg PO BID #0 06/22/20 [Rx] Budesonide/Formoterol Fumarate [Symbicort 80-4.5 MCG] 2 puff IH BID 06/28/21 [History] Dexamethasone/Tobramycin [Tobradex Ophth Susp] 1 drop EYERT TID 06/28/21 [History] Metoprolol Tartrate [Lopressor] 25 mg PO Q12HR 06/28/21 [History] Mirabegron [Myrbetriq] 25 mg PO DAILY 06/28/21 [History] Past Medical History HEENT History: Reports: Allergic Rhinitis Other HEENT History: wears glasses Cardiovascular History: Reports: Arrhythmia, High Cholesterol Other Cardiovascular History: Occasional palpitations, 'do not know if it's nerves or what" Respiratory History: Reports: Asthma Gastrointestinal History: Reports: None Other Gastrointestinal History: Indigestion, pain to back Genitourinary History: Reports: None Other Genitourinary History: Urgency at times, Recent discovery of abnormality on one of my kidneys 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: Musculoskeletal History: Reports: None Neurological History: Reports: Other (See Below) Other Neuro History: Tremor Psychiatric History: Reports: None Other Psychiatric History: Get a little anxious on occasion Endocrine/Metabolic History: Reports: Hypothyroidism, Obesity/BMI 30+ Other Endocrine/Metabolic History: hypothyroidism Hematologic History: Reports: None Immunologic History: Reports: None Oncologic (Cancer) History: Reports: None Dermatologic History: Reports: None - Infectious Disease History Infectious Disease History: Reports: Chicken Pox, Measles, Mumps - Past Surgical History Head Surgeries/Procedures: Reports: None HEENT Surgical History: Reports: None Cardiovascular Surgical History: Reports: None Respiratory Surgical History: Reports: None GI Surgical History: Reports: Cholecystectomy, Colonoscopy, Other (See Below) Other GI Surgeries/Procedures: bowel surgery Female Surgical History: Reports: None Endocrine Surgical History: Reports: None Neurological Surgical History: Reports: None Musculoskeletal Surgical History: Reports: Other (See Below) 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 ED EXAM, GENERAL - Physical Exam Exam: See Below Exam Limited By: No Limitations General Appearance: Alert, WD/WN, No Apparent Distress Ears: Hearing Grossly Normal Throat/Mouth: Normal Voice, No Airway Compromise Head: Atraumatic, Normocephalic Neck: Normal Inspection Respiratory/Chest: No Respiratory Distress, Lungs Clear, Normal Breath Sounds, No Accessory Muscle Use Cardiovascular: Normal Peripheral Pulses, Regular Rate, Rhythm GI/Abdominal: Soft, Non-Tender (Female) Exam: Other (large erythematous rash involving entire suprapubic area, inner thighs, and external genitalia consistent with severe lina dermatitis) Extremities: Normal Inspection Neurological: Alert, Normal Cognition, Normal Gait Psychiatric: Normal Affect, Normal Mood Skin Exam: Warm, Dry, Intact, Normal Color Course - Vital Signs Last Recorded V/S: Last Vital Signs Temp 95.5 F L 06/28/21 09:07 Pulse 65 06/28/21 09:07 Resp 18 06/28/21 09:07 BP 134/72 06/28/21 09:07 Pulse Ox 94 L 06/28/21 09:07 - Orders/Labs/Meds Labs: Laboratory Tests 06/28/21 06/28/21 06/28/21 Range/Units 09:23 09:23 09:50 WBC 8.80 (4.0-11.0) K/uL RBC 3.78 L (4.30-5.90) M/uL Hgb 12.4 (12.0-16.0) g/dL Hct 38.2 (36.0-46.0) % MCV 101.1 H (80.0-98.0) fL MCH 32.8 H (27.0-32.0) pg MCHC 32.5 (31.0-37.0) g/dL RDW Std Deviation 48.0 (28.0-62.0) fl RDW Coeff of Tray 13 (11.0-15.0) % Plt Count 290 (150-400) K/uL MPV 9.40 (7.40-12.00) fL Neut % (Auto) 69.7 (48.0-80.0) % Lymph % (Auto) 12.3 L (16.0-40.0) % [place] % (Auto) 10.5 (0.0-15.0) % Eos % (Auto) 7.4 H (0.0-7.0) % Baso % (Auto) 0.1 (0.0-1.5) % Neut # (Auto) 6.1 H (1.4-5.7) K/uL Lymph # (Auto) 1.1 (0.6-2.4) K/uL [place] # (Auto) 0.9 H (0.0-0.8) K/uL Eos # (Auto) 0.7 (0.0-0.7) K/uL Baso # (Auto) 0.0 (0.0-0.1) K/uL Nucleated RBC % 0.0 /100WBC Nucleated RBCs # 0 K/uL Sodium 142 (136-145) mmol/L Potassium 3.8 (3.5-5.1) mmol/L Chloride 108 H (98-107) mmol/L Carbon Dioxide 27.1 (21.0-32.0) mmol/L BUN 15 (7.0-18.0) mg/dL Creatinine 0.9 (0.6-1.0) mg/dL Est Cr Clr Drug Dosing 38.12 mL/min Estimated GFR (MDRD) 59.9 ml/min Glucose 96 (74-106) mg/dL Calcium 8.5 (8.5-10.1) mg/dL Total Bilirubin 0.5 (0.2-1.0) mg/dL AST 17 (15-37) IU/L ALT 20 (14-63) IU/L Alkaline Phosphatase 67 (46-116) U/L Total Protein 6.8 (6.4-8.2) g/dL Albumin 3.4 (3.4-5.0) g/dL Globulin 3.4 (2.6-4.0) g/dL Albumin/Globulin Ratio 1.0 (0.9-1.6) Urine Color YELLOW Urine Appearance CLEAR Urine pH 5.5 (5.0-8.0) Ur Specific [place] 1.025 (1.001-1.035) Urine Protein NEGATIVE (NEGATIVE) mg/dL Urine Glucose (UA) NEGATIVE (NEGATIVE) mg/dL Urine Ketones TRACE H (NEGATIVE) mg/dL Urine Occult Blood TRACE-INTACT H (NEGATIVE) Urine Nitrite NEGATIVE (NEGATIVE) Urine Bilirubin NEGATIVE (NEGATIVE) Urine Urobilinogen 1.0 (<2.0) EU/dL Ur Leukocyte Esterase NEGATIVE (NEGATIVE) Urine RBC 2-4 (0-2/HPF) Urine WBC 0-3 (0-5/HPF) Ur Epithelial Cells MODERATE (NONE-FEW) Urine Bacteria 1+ H (NEGATIVE) Urine Mucus MODERATE (NONE-MOD) Meds: Medications Discontinued Medications Generic Name Dose Route Start Last Admin Trade Name Freq PRN Reason Stop Dose Admin Cephalexin 500 mg 06/28/21 09:50 Cephalexin 500 Mg Cap PO 06/28/21 09:51 ONETIME ONE Clotrimazole 2 gm 06/28/21 09:52 Clotrimazole 1% Crm 30 Gm Tube TOP 06/28/21 09:53 STAT STA Fluconazole 150 mg 06/28/21 09:50 Fluconazole 150 Mg Tab PO 06/28/21 09:51 ONETIME ONE Nystatin 2 gm 06/28/21 09:55 Nystatin Crm 30 Gm Tube TOP 06/28/21 09:56 STAT STA Sodium Chloride 10 ml 06/28/21 09:12 Sodium Chloride 0.9% 10 Ml Syringe FLUSH ASDIRECTED PRN Keep Vein Open Sodium Chloride 2.5 ml 06/28/21 09:12 Sodium Chloride 0.9% 2.5 Ml Syringe FLUSH ASDIRECTED PRN Keep Vein Open - Re-Assessments/Exams Free Text/Narrative Re-Assessment/Exam: 06/28/21 10:00 Patient's [facility] ADMIN did request outpatient labs, CBC and CMP ordered. We will also get a urinalysis. Anticipate discharge with nystatin cream, fluconazole oral, and will do a course of bactrim for possible superimposed bacterial cellulitis. Departure - Departure Time of Disposition: 10:14 Disposition: Home, Self-Care 01 Condition: Good Clinical Impression: Candidiasis - Discharge Information Instructions: Vaginal Yeast Infection, Adult Referrals: Florina Randhawa DO [Primary Care Provider] - Forms: ED Department Discharge Additional Instructions: I have sent 3 different prescriptions to your pharmacy for your Lina infection. 2 of them are oral medications that help with skin infection. One of them is a topical cream. Please take them as prescribed. Please follow-up with your [facility] ADMIN. The following information is given to patients seen in the emergency department who are being discharged to home. This information is to outline your options for follow-up care. We provide all patients seen in our emergency department with a follow-up referral. The need for follow-up, as well as the timing and circumstances, are variable depending upon the specifics of your emergency department visit. If you don't have a primary care physician on staff, we will provide you with a referral. We always advise you to contact your personal physician following an emergency department visit to inform them of the circumstance of the visit and for follow-up with them and/or the need for any referrals to a consulting specialist. The emergency department will also refer you to a specialist when appropriate. This referral assures that you have the opportunity for follow-up care with a specialist. All of these measure are taken in an effort to provide you with optimal care, which includes your follow-up. Under all circumstances we always encourage you to contact your private phy sician who remains a resource for coordinating your care. When calling for follow-up care, please make the office aware that this follow-up is from your recent emergency room visit. If for any reason you are refused follow-up, please contact the [facility] Emergency Department at and asked to speak to the emergency department charge nurse. Please follow up with your primary care physician. If you do not have a primary care physician, see below: [facility] [address] [place] [id number] [facility] [address] [place] [id number] [facility] [address] [place] [id number] Sepsis Event Note (ED) - Focused Exam Vital Signs: Vital Signs Temp Pulse Resp BP Pulse Ox 06/28/21 09:07 95.5 F L 65 18 134/72 94 L
[2021-06-28] MEDS ORDERED: Sodium Chloride 0.9% 10 ML Syringe FLUSH PRN (09:12)
[2021-06-28] MEDS ORDERED: Sodium Chloride 0.9% 2.5 ML Syringe FLUSH PRN (09:12)
[2021-06-28] MEDS ORDERED: Cephalexin 500 MG Cap PO ONE (09:50)
[2021-06-28] MEDS ORDERED: Fluconazole 150 MG Tab PO ONE (09:50)
[2021-06-28] MEDS ORDERED: Clotrimazole 1% Crm 30 GM Tube TOP STA (09:52)
[2021-06-28] MEDS ORDERED: Nystatin Crm 30 GM Tube TOP STA (09:55)
[2021-06-28 10:05] LABS: CARBON DIOXIDE,CO2 27.1 mmol/L (21.0-32.0); POTASSIUM,K 3.8 mmol/L (3.5-5.1)
[2021-06-28 10:40] VITALS: BP 128/73; PULSE 62
== END 2021-06-28 10:43 | disposition home or self-care (01) ==
LOC: MW.ED 08:32
DX: B37.9 Candidiasis, unspecified (principal); E78.00 Pure hypercholesterolemia, unspecified; E03.9 Hypothyroidism, unspecified; I48.91 Unspecified atrial fibrillation; J45.909 Unspecified asthma, uncomplicated; E66.9 Obesity, unspecified; Z68.35 Body mass index [BMI] 35.0-35.9, adult; Z79.01 Long term (current) use of anticoagulants; Z79.899 Other long term (current) drug therapy
CPT/HCPCS: 36415; 80053; 81001; 85025; 99283

== ENCOUNTER 2022-12-20 03:11 | Emergency (ER) | payer MEDICARE, OTHER ==
[2022-12-20] MEDS ORDERED: Diltiazem 25 MG/5 ML SDV IVPUSH ONE (03:20)
[2022-12-20] MEDS ORDERED: Diltiazem IR 60 MG Tab PO ONE (03:20)
[2022-12-20] MEDS ORDERED: Sodium Chloride 0.9% 500 ML IV SCH (03:30)
[2022-12-20 04:29] LABS: CARBON DIOXIDE,CO2 25.4 mmol/L (21.0-32.0); POTASSIUM,K 3.9 mmol/L (3.5-5.1)
[2022-12-20 05:24] VITALS: BP 103/60; PULSE 95
== END 2022-12-20 06:00 | disposition home or self-care (01) ==
LOC: MW.ED 03:11
DX: I48.91 Unspecified atrial fibrillation (principal); E78.00 Pure hypercholesterolemia, unspecified; I10 Essential (primary) hypertension; E78.5 Hyperlipidemia, unspecified; E03.9 Hypothyroidism, unspecified; E66.9 Obesity, unspecified; Z68.35 Body mass index [BMI] 35.0-35.9, adult; Z79.01 Long term (current) use of anticoagulants; Z79.899 Other long term (current) drug therapy; Z20.822 Contact with and (suspected) exposure to COVID-19
CPT/HCPCS: 36415; 71045; 80053; 81001; 83735; 83880; 84484; 85025; 85610; 85730; 93005; 96374; 99285; A9270; J3490; J7040; U0002; 93010; 99284

== ENCOUNTER 2022-12-25 11:27 | Emergency (ER) | payer MEDICARE, OTHER ==
[2022-12-25 13:16] LABS: CARBON DIOXIDE,CO2 24.3 mmol/L (21.0-32.0); POTASSIUM,K 4.1 mmol/L (3.5-5.1)
[2022-12-25] MEDS ORDERED: Bacitracin Oint 1 GM U/D Packet TOP ONE (13:27)
[2022-12-25 14:09] VITALS: BP 134/80; PULSE 75
== END 2022-12-25 14:10 | disposition home or self-care (01) ==
LOC: MW.ED 11:27
DX: S81.802A Unspecified open wound, left lower leg, initial encounter (principal); E78.00 Pure hypercholesterolemia, unspecified; E03.9 Hypothyroidism, unspecified; E66.9 Obesity, unspecified; Z79.899 Other long term (current) drug therapy
CPT/HCPCS: 36415; 80053; 85025; 99283

== ENCOUNTER 2023-09-11 05:50 | Emergency (ER) | payer MEDICARE, OTHER ==
[2023-09-11] MEDS ORDERED: Ketorolac 30 MG/ML SDV IVPUSH ONE (06:33)
[2023-09-11 06:48] LABS: BASOPHILS ABSOLUTE AUTO 0.03 K/uL (0.00-0.20); BASOPHILS PERCENT AUTO 0.3 % (0.0-1.0); EOSINOPHILS ABSOLUTE AUTO 0.12 K/uL (0.00-0.45); EOSINOPHILS PERCENT AUTO 1.1 % (0.0-6.0); HEMATOCRIT 35.4 % (37.0-47.0); HEMOGLOBIN 11.7 g/dL (12.0-16.0); IMMATURE GRAN ABSOLUTE AUTO 0.02 K/uL (0.00-0.05); IMMATURE GRAN PERCENT AUTO 0.2 % (0.0-0.4); LYMPHOCYTES ABSOLUTE AUTO 1.63 K/uL (1.00-4.80); LYMPHOCYTES PERCENT AUTO 15.4 % (24.0-44.0); MEAN CORPUSCULAR HEMOGLOBIN 33.7 pg (28.0-32.0); MEAN CORPUSCULAR HGB CONC 33.1 g/dL (32.0-36.0); MEAN PLATELET VOLUME 9.6 fL (9.4-12.3); MONOCYTES ABSOLUTE AUTO 0.95 K/uL (0.00-0.80); NEUTROPHILS ABSOLUTE AUTO 7.85 K/uL (1.80-7.70); PLATELET COUNT,PLT 300 K/uL (150-400); RED BLOOD CELL COUNT 3.47 M/uL (4.10-5.30)
[2023-09-11 06:51] LABS: ALANINE AMINOTRANSFERASE,ALT 46 IU/L (14-63); ALBUMIN 3.5 g/dL (3.4-5.0); ALKALINE PHOSPHATASE 92 U/L (46-116); ASPARTATE AMNIOTRANSFERASE,AST 37 IU/L (15-37); BILIRUBIN TOTAL 0.4 mg/dL (0.2-1.0); BLOOD UREA NITROGEN,BUN 17 mg/dL (7.0-18.0); CALCIUM 8.4 mg/dL (8.5-10.1); CARBON DIOXIDE,CO2 23.6 mmol/L (21.0-32.0); CHLORIDE,CL 105 mmol/L (98-107); ESTIMATED GFR 56 mL/min (>60); GLUCOSE RANDOM 100 mg/dL (74-106); LIPASE 46 U/L (16-77); POTASSIUM,K 3.5 mmol/L (3.5-5.1); PROTEIN TOTAL,TP 6.9 g/dL (6.4-8.2); SODIUM,NA 133 mmol/L (136-145)
[2023-09-11] MEDS ORDERED: Iopamidol 755 MG/ML 500 ML Multipack Bottle IVPUSH ONE (07:02)
[2023-09-11] MEDS ORDERED: Sodium Chloride 0.9% 500 ML IV SCH (07:30)
[2023-09-11 10:21] LABS: APPEARANCE,URINE CLEAR; BILIRUBIN,URINE NEGATIVE (NEGATIVE); COLOR,URINE YELLOW; GLUCOSE,URINE NEGATIVE (NEGATIVE); KETONES,URINE NEGATIVE (NEGATIVE); LEUKOCYTE ESTERASE,URINE NEGATIVE (NEGATIVE); NITRITE,URINE NEGATIVE (NEGATIVE); OCCULT BLOOD,URINE MODERATE (NEGATIVE); PROTEIN,URINE NEGATIVE (NEGATIVE); UROBILINOGEN,URINE 0.2 EU/dL (<2.0)
[2023-09-11 10:28] VITALS: BP 165/81; PULSE 64
[2023-09-11 10:44] LABS: BACTERIA,URINE FEW (NEGATIVE); CALCIUM OXALATE CRYSTALS,URINE FEW (NEGATIVE); EPITHELIAL CELLS,URINE OCCASIONAL (NONE-FEW); WBC,URINE 0-3 (0-5/HPF)
== END 2023-09-11 10:27 | disposition home or self-care (01) ==
LOC: MW.ED 05:50
DX: N13.2 Hydronephrosis with renal and ureteral calculous obstruction (principal); E78.00 Pure hypercholesterolemia, unspecified; J45.909 Unspecified asthma, uncomplicated; E03.9 Hypothyroidism, unspecified; E66.9 Obesity, unspecified; Z79.899 Other long term (current) drug therapy
CPT/HCPCS: 36415; 74177; 80053; 81001; 83690; 85025; 87086; 87324; 96374; 99284; J1885; J7040; Q9967

== ENCOUNTER 2024-06-18 15:07 | Emergency (ER) | payer MEDICARE, OTHER ==
[2024-06-18 17:59] VITALS: BP 126/66; PULSE 69
[2024-06-18] MEDS: Lidocaine 4% 1 each Patch TOP PRN (18:17)
== END 2024-06-18 18:22 | disposition home or self-care (01) ==
LOC: MW.ED 15:07
DX: S20.212A Contusion of left front wall of thorax, initial encounter (principal); I48.91 Unspecified atrial fibrillation; J45.909 Unspecified asthma, uncomplicated; E03.9 Hypothyroidism, unspecified; E66.9 Obesity, unspecified; Z79.899 Other long term (current) drug therapy; Z75.8 Other problems related to medical facilities and other health care; W01.198A Fall on same level from slipping, tripping and stumbling with subsequent striking against other object, initial encounter; Y92.002 Bathroom of unspecified non-institutional (private) residence as the place of occurrence of the external cause; Y93.E1 Activity, personal bathing and showering
CPT/HCPCS: 71101; 99283; A9270

== ENCOUNTER 2024-09-05 11:10 | Emergency (ER) | payer MEDICARE, OTHER ==
[2024-09-05] MEDS: Diazepam 2 MG Tab PO STA (12:13)
[2024-09-05 13:01] VITALS: BP 138/74; PULSE 87
== END 2024-09-05 13:00 | disposition home or self-care (01) ==
LOC: MW.ED 11:10
DX: M54.50 Low back pain, unspecified (principal); I48.91 Unspecified atrial fibrillation; J45.909 Unspecified asthma, uncomplicated; E03.9 Hypothyroidism, unspecified; E66.9 Obesity, unspecified; Z68.31 Body mass index [BMI] 31.0-31.9, adult; Z90.49 Acquired absence of other specified parts of digestive tract; Z79.899 Other long term (current) drug therapy
CPT/HCPCS: 99283; A9270

== ENCOUNTER 2025-02-24 11:09 | Observation (INO) | payer MEDICARE, OTHER ==
[2025-02-24] MEDS: Acetaminophen 500 MG Tab PO ONE (12:30)
[2025-02-24] MEDS: Lidocaine 4% Patch TOP STA ×2 (12:30→16:25)
[2025-02-24] MEDS: Sodium Chloride 0.9% 1,000 ML IV ONE (12:30)
[2025-02-24 12:43] LABS: BASOPHILS ABSOLUTE AUTO 0.05 K/uL (0.00-0.20); BASOPHILS PERCENT AUTO 0.9 % (0.0-1.0); EOSINOPHILS ABSOLUTE AUTO 0.22 K/uL (0.00-0.45); EOSINOPHILS PERCENT AUTO 4.1 % (0.0-6.0); HEMOGLOBIN 11.2 g/dL (12.0-16.0); IMMATURE GRAN ABSOLUTE AUTO 0.01 K/uL (0.00-0.05); IMMATURE GRAN PERCENT AUTO 0.2 % (0.0-0.4); LYMPHOCYTES ABSOLUTE AUTO 1.35 K/uL (1.00-4.80); LYMPHOCYTES PERCENT AUTO 24.9 % (24.0-44.0); MEAN CORPUSCULAR HEMOGLOBIN 36.4 pg (28.0-32.0); MEAN CORPUSCULAR HGB CONC 32.9 g/dL (32.0-36.0); MEAN CORPUSCULAR VOLUME 110.4 fL (83.0-99.0); MEAN PLATELET VOLUME 9.2 fL (9.4-12.3); MONOCYTES ABSOLUTE AUTO 0.82 K/uL (0.00-0.80); MONOCYTES PERCENT AUTO 15.1 % (0.0-8.0); NEUTROPHILS ABSOLUTE AUTO 2.97 K/uL (1.80-7.70); NEUTROPHILS PERCENT AUTO 54.8 % (41.0-71.0); PLATELET COUNT,PLT 266 K/uL (150-400); RED BLOOD CELL COUNT 3.08 M/uL (4.10-5.30); WHITE BLOOD CELL COUNT,WBC 5.42 K/uL (3.9-11.3)
[2025-02-24 13:08] LABS: A/G RATIO 1.3 (0.9-1.6); ALBUMIN 3.5 g/dL (3.4-5.0); BILIRUBIN TOTAL 0.6 mg/dL (0.2-1.0); CALCIUM 8.4 mg/dL (8.5-10.1); CARBON DIOXIDE,CO2 27.6 mmol/L (21.0-32.0); CREATININE 0.8 mg/dL (0.6-1.0); EST CRCL DRUG DOSING (CG) 38.8 mL/min; POTASSIUM,K 3.3 mmol/L (3.5-5.1); PROTEIN TOTAL,TP 6.2 g/dL (6.4-8.2)
[2025-02-24 15:00] LABS: GLUCOSE,URINE NEGATIVE (NEGATIVE); KETONES,URINE TRACE mg/dL (NEGATIVE); LEUKOCYTE ESTERASE,URINE NEGATIVE (NEGATIVE); NITRITE,URINE NEGATIVE (NEGATIVE); OCCULT BLOOD,URINE NEGATIVE (NEGATIVE); PH,URINE 5.5 (5.0-8.0); PROTEIN,URINE TRACE mg/dL (NEGATIVE); UROBILINOGEN,URINE 0.2 EU/dL (<2.0)
[2025-02-24 15:16] LABS: APPEARANCE,URINE HAZY; BACTERIA,URINE FEW (NEGATIVE); BILIRUBIN,URINE SMALL (NEGATIVE); COLOR,URINE DARK YELLOW; EPITHELIAL CELLS,URINE OCCASIONAL (NONE-FEW); RBC,URINE 0-2 (0-2/HPF); WBC,URINE 0-3 (0-5/HPF)
[2025-02-24 15:17] LABS: MUCUS,URINE LIGHT (NONE-MOD)
[2025-02-24] MEDS: Potassium Chloride 20 MEQ Tab.ER PO ONE (20:26)
[2025-02-24] MEDS: atorvaSTATin 20 MG Tab PO SCH (20:26)
[2025-02-24] MEDS ORDERED: Metoprolol Succinate 50 MG Tab.ER PO SCH (21:00)
[2025-02-24] MEDS: Acetaminophen 325 MG Tab PO PRN (21:19)
[2025-02-25 06:06] LABS: BASOPHILS ABSOLUTE AUTO 0.05 K/uL (0.00-0.20); EOSINOPHILS ABSOLUTE AUTO 0.23 K/uL (0.00-0.45); EOSINOPHILS PERCENT AUTO 4.6 % (0.0-6.0); HEMATOCRIT 34.1 % (37.0-47.0); HEMOGLOBIN 10.8 g/dL (12.0-16.0); IMMATURE GRAN ABSOLUTE AUTO 0.02 K/uL (0.00-0.05); IMMATURE GRAN PERCENT AUTO 0.4 % (0.0-0.4); LYMPHOCYTES ABSOLUTE AUTO 1.43 K/uL (1.00-4.80); LYMPHOCYTES PERCENT AUTO 28.7 % (24.0-44.0); MEAN CORPUSCULAR HEMOGLOBIN 35.9 pg (28.0-32.0); MEAN CORPUSCULAR HGB CONC 31.7 g/dL (32.0-36.0); MEAN CORPUSCULAR VOLUME 113.3 fL (83.0-99.0); MEAN PLATELET VOLUME 9.4 fL (9.4-12.3); MONOCYTES ABSOLUTE AUTO 0.79 K/uL (0.00-0.80); MONOCYTES PERCENT AUTO 15.8 % (0.0-8.0); NEUTROPHILS ABSOLUTE AUTO 2.47 K/uL (1.80-7.70); NEUTROPHILS PERCENT AUTO 49.5 % (41.0-71.0); PLATELET COUNT,PLT 258 K/uL (150-400); RED BLOOD CELL COUNT 3.01 M/uL (4.10-5.30); WHITE BLOOD CELL COUNT,WBC 4.99 K/uL (3.9-11.3)
[2025-02-25 07:01] LABS: A/G RATIO 1.3 (0.9-1.6); ALBUMIN 3.4 g/dL (3.4-5.0); BILIRUBIN TOTAL 0.6 mg/dL (0.2-1.0); CALCIUM 8.8 mg/dL (8.5-10.1); CARBON DIOXIDE,CO2 25.6 mmol/L (21.0-32.0); CREATININE 0.7 mg/dL (0.6-1.0); EST CRCL DRUG DOSING (CG) 44.34 mL/min; MAGNESIUM 1.8 mg/dL (1.8-2.4); PHOSPHORUS 3.2 mg/dL (2.6-4.7); TSH ULTRASENSITIVE 35.02 uIU/mL (0.36-3.74)
[2025-02-25] MEDS: Levothyroxine 75 MCG Tab PO SCH (07:30)
[2025-02-25] MEDS: DULoxetine 60 MG Cap PO SCH (08:33)
[2025-02-25 08:35] LABS: T4 FREE 0.83 ng/dL (0.76-1.46)
[2025-02-25 08:37] VITALS: BP 134/72; PULSE 73
== END 2025-02-25 11:52 | disposition home or self-care (01) ==
LOC: MW.ED 11:09 → MW.MS 16:14
PROVIDERS: ADMIT Internal Medicine; ATTEND Internal Medicine
DX: E86.0 Dehydration (principal); M79.604 Pain in right leg; M79.605 Pain in left leg; E03.9 Hypothyroidism, unspecified; E66.9 Obesity, unspecified; Z88.8 Allergy status to other drugs, medicaments and biological substances; Z88.2 Allergy status to sulfonamides; Z68.30 Body mass index [BMI] 30.0-30.9, adult; Z79.82 Long term (current) use of aspirin; Z79.899 Other long term (current) drug therapy; Z79.890 Hormone replacement therapy; W19.XXXA Unspecified fall, initial encounter
CPT/HCPCS: 36415; 70450; 71045; 72125; 80053; 81001; 83735; 84100; 84439; 84443; 85025; 93970; 97162; A9270; J7030; 99284

== ENCOUNTER 2025-04-24 21:52 | Emergency (ER) | payer MEDICARE, OTHER ==
[2025-04-24 22:42] VITALS: BP 112/52; PULSE 72
[2025-04-24] MEDS: Lidocaine 1% with EPINEPHrine 1:100,000 10 ML MDV INJECT ONE (22:55)
== END 2025-04-24 23:45 | disposition home or self-care (01) ==
LOC: MW.ED 21:52
DX: S01.511A Laceration without foreign body of lip, initial encounter (principal); I48.91 Unspecified atrial fibrillation; I10 Essential (primary) hypertension; E03.9 Hypothyroidism, unspecified; E66.9 Obesity, unspecified; J45.909 Unspecified asthma, uncomplicated; E78.00 Pure hypercholesterolemia, unspecified; Z79.899 Other long term (current) drug therapy; Z79.82 Long term (current) use of aspirin; Z88.2 Allergy status to sulfonamides; Z88.8 Allergy status to other drugs, medicaments and biological substances; Z68.29 Body mass index [BMI] 29.0-29.9, adult; W19.XXXA Unspecified fall, initial encounter; Y92.009 Unspecified place in unspecified non-institutional (private) residence as the place of occurrence of the external cause
CPT/HCPCS: 12011; 99282

== ENCOUNTER 2025-08-04 15:16 | Emergency (ER) | payer MEDICARE, OTHER ==
[2025-08-04] MEDS ORDERED: Sodium Chloride 0.9% 2.5 ML Syringe FLUSH PRN (16:58)
[2025-08-04] MEDS ORDERED: Sodium Chloride 0.9% 10 ML Syringe FLUSH PRN (16:58)
[2025-08-04 17:07] LABS: MEAN PLATELET VOLUME 9.2 fL (9.4-12.3); NRBC ABSOLUTE 0.00 K/uL (0.00-0.02); NRBC PERCENT 0.0 /100WBC (0.0-0.2); PLATELET COUNT,PLT 256 K/uL (150-400); RED BLOOD CELL COUNT 3.20 M/uL (4.10-5.30); WHITE BLOOD CELL COUNT,WBC 5.42 K/uL (3.9-11.3)
[2025-08-04 17:38] LABS: LACTIC ACID 1.0 mmol/L (0.4-2.0)
[2025-08-04 17:44] LABS: APPEARANCE,URINE CLEAR; GLUCOSE,URINE NEGATIVE (NEGATIVE); OCCULT BLOOD,URINE NEGATIVE (NEGATIVE)
[2025-08-04 17:58] LABS: A/G RATIO 1.2 (0.9-1.6); ALANINE AMINOTRANSFERASE,ALT 50.0 IU/L (14-63); ASPARTATE AMNIOTRANSFERASE,AST 41.0 IU/L (15-37); BILIRUBIN TOTAL 0.7 mg/dL (0.2-1.0); BLOOD UREA NITROGEN,BUN 17.0 mg/dL (7.0-18.0); CARBON DIOXIDE,CO2 22.3 mmol/L (21.0-32.0); CHLORIDE,CL 103.0 mmol/L (98-107); CREATININE 0.8 mg/dL (0.6-1.0); EST CRCL DRUG DOSING (CG) 38.09 mL/min; GLUCOSE RANDOM 68.0 mg/dL (74-106); POTASSIUM,K 3.4 mmol/L (3.5-5.1); PROTEIN TOTAL,TP 6.6 g/dL (6.4-8.2); SODIUM,NA 138.0 mmol/L (136-145)
[2025-08-04 18:04] LABS: EOSINOPHILS ABSOLUTE MAN 0.27 K/uL (0.00-0.45); EOSINOPHILS PERCENT MAN 5 % (0-6); ESTIMATED GFR 72.0 mL/min (>60); LYMPHOCYTES ABSOLUTE MAN 1.19 K/uL (1.00-4.80); LYMPHOCYTES PERCENT MAN 22 % (24-44)
[2025-08-04 18:08] LABS: MONOCYTES ABSOLUTE MAN 0.65 K/uL (0.00-0.80); MONOCYTES PERCENT MAN 12 % (0-8); SEG NEUTROPHILS ABSOLUTE MAN 3.31 K/uL (1.80-7.70); SEG NEUTROPHILS PERCENT MAN 61 % (41-71)
[2025-08-04] MEDS: Iopamidol 755 MG/ML 500 ML Multipack Bottle IVPUSH STA (18:23)
[2025-08-04] MEDS: Ondansetron 4 MG/2 ML SDV IVPUSH ONE (18:39)
[2025-08-04 18:47] LABS: EPITHELIAL CELLS,URINE RARE (NONE-FEW)
[2025-08-04 18:49] LABS: TSH ULTRASENSITIVE 1.39 uIU/mL (0.36-3.74)
[2025-08-04] MEDS: Potassium Chloride 20 MEQ Tab.ER PO ONE (20:09)
[2025-08-04 21:15] VITALS: BP 129/61; PULSE 62
== END 2025-08-04 21:15 | disposition home or self-care (01) ==
LOC: MW.ED 15:16
DX: R19.7 Diarrhea, unspecified (principal); I10 Essential (primary) hypertension; E78.00 Pure hypercholesterolemia, unspecified; E03.9 Hypothyroidism, unspecified; Z88.2 Allergy status to sulfonamides; Z79.890 Hormone replacement therapy; Z79.899 Other long term (current) drug therapy; Z79.82 Long term (current) use of aspirin; Z90.49 Acquired absence of other specified parts of digestive tract
CPT/HCPCS: 36415; 74177; 80053; 81001; 83605; 83690; 83735; 84443; 84484; 85025; 87426; 96361; 96374; 99285; A9270; J2405; J7030; Q9967; 99283

== ENCOUNTER 2025-10-22 09:46 | Inpatient (IN) | payer MEDICARE, OTHER ==
[2025-10-22] MEDS ORDERED: Sodium Chloride 0.9% 2.5 ML Syringe FLUSH PRN ×2 (10:04→13:59)
[2025-10-22] MEDS ORDERED: Sodium Chloride 0.9% 10 ML Syringe FLUSH PRN ×2 (10:04→13:59)
[2025-10-22 10:13] LABS: BASOPHILS ABSOLUTE AUTO 0.03 K/uL (0.00-0.20); BASOPHILS PERCENT AUTO 0.3 % (0.0-1.0); EOSINOPHILS ABSOLUTE AUTO 0.33 K/uL (0.00-0.45); EOSINOPHILS PERCENT AUTO 3.3 % (0.0-6.0); IMMATURE GRAN ABSOLUTE AUTO 0.05 K/uL (0.00-0.05); IMMATURE GRAN PERCENT AUTO 0.5 % (0.0-0.4); LYMPHOCYTES ABSOLUTE AUTO 0.93 K/uL (1.00-4.80); LYMPHOCYTES PERCENT AUTO 9.3 % (24.0-44.0); MEAN PLATELET VOLUME 9.4 fL (9.4-12.3); MONOCYTES ABSOLUTE AUTO 0.93 K/uL (0.00-0.80); MONOCYTES PERCENT AUTO 9.3 % (0.0-8.0); NEUTROPHILS ABSOLUTE AUTO 7.70 K/uL (1.80-7.70); NEUTROPHILS PERCENT AUTO 77.3 % (41.0-71.0); NRBC ABSOLUTE 0.00 K/uL (0.00-0.02); NRBC PERCENT 0.0 /100WBC (0.0-0.2); PLATELET COUNT,PLT 236 K/uL (150-400); RED BLOOD CELL COUNT 4.08 M/uL (4.10-5.30); WHITE BLOOD CELL COUNT,WBC 9.97 K/uL (3.9-11.3)
[2025-10-22 10:27] LABS: INR 0.97 (0.86-1.11)
[2025-10-22 10:32] LABS: PTT,PARTIAL THROMBOPLSTIN TIME < 20.0 SEC (23.9-30.7)
[2025-10-22 10:45] LABS: LACTIC ACID 1.8 mmol/L (0.4-2.0)
[2025-10-22 10:48] LABS: A/G RATIO 0.8 (0.9-1.6); ALANINE AMINOTRANSFERASE,ALT 67.0 IU/L (14-63); ASPARTATE AMNIOTRANSFERASE,AST 46.0 IU/L (15-37); BILIRUBIN TOTAL 0.7 mg/dL (0.2-1.0); BLOOD UREA NITROGEN,BUN 17.0 mg/dL (7.0-18.0); CARBON DIOXIDE,CO2 26.8 mmol/L (21.0-32.0); CHLORIDE,CL 107.0 mmol/L (98-107); CREATININE 0.9 mg/dL (0.6-1.0); EST CRCL DRUG DOSING (CG) 33.86 mL/min; GLUCOSE RANDOM 91.0 mg/dL (74-106); POTASSIUM,K 3.5 mmol/L (3.5-5.1); PROTEIN TOTAL,TP 6.5 g/dL (6.4-8.2); SODIUM,NA 142.0 mmol/L (136-145)
[2025-10-22 10:51] LABS: ESTIMATED GFR 62.0 mL/min (>60)
[2025-10-22] MEDS: Magnesium Sulfate 2 GM/50 mL 2 GM in Premix Bag 1 BAG IV ONE (11:09)
[2025-10-22 11:55] LABS: APPEARANCE,URINE CLEAR; GLUCOSE,URINE NEGATIVE (NEGATIVE); OCCULT BLOOD,URINE NEGATIVE (NEGATIVE)
[2025-10-22] MEDS: Iopamidol 755 MG/ML 500 ML Multipack Bottle IVPUSH STA (12:03)
[2025-10-22] MEDS: Furosemide 20 MG/2 ML VIAL IVPUSH SCH (16:21)
[2025-10-23 05:47] LABS: BASOPHILS ABSOLUTE AUTO 0.02 K/uL (0.00-0.20); BASOPHILS PERCENT AUTO 0.3 % (0.0-1.0); EOSINOPHILS ABSOLUTE AUTO 0.42 K/uL (0.00-0.45); EOSINOPHILS PERCENT AUTO 5.8 % (0.0-6.0); IMMATURE GRAN ABSOLUTE AUTO 0.02 K/uL (0.00-0.05); IMMATURE GRAN PERCENT AUTO 0.3 % (0.0-0.4); LYMPHOCYTES ABSOLUTE AUTO 1.01 K/uL (1.00-4.80); LYMPHOCYTES PERCENT AUTO 13.9 % (24.0-44.0); MEAN PLATELET VOLUME 9.4 fL (9.4-12.3); MONOCYTES ABSOLUTE AUTO 1.01 K/uL (0.00-0.80); MONOCYTES PERCENT AUTO 13.9 % (0.0-8.0); NEUTROPHILS ABSOLUTE AUTO 4.80 K/uL (1.80-7.70); NEUTROPHILS PERCENT AUTO 65.8 % (41.0-71.0); NRBC ABSOLUTE 0.00 K/uL (0.00-0.02); NRBC PERCENT 0.0 /100WBC (0.0-0.2); PLATELET COUNT,PLT 221 K/uL (150-400); RED BLOOD CELL COUNT 3.64 M/uL (4.10-5.30); WHITE BLOOD CELL COUNT,WBC 7.28 K/uL (3.9-11.3)
[2025-10-23 06:12] LABS: A/G RATIO 0.8 (0.9-1.6); ALANINE AMINOTRANSFERASE,ALT 70.0 IU/L (14-63); ASPARTATE AMNIOTRANSFERASE,AST 42.0 IU/L (15-37); BILIRUBIN TOTAL 0.9 mg/dL (0.2-1.0); BLOOD UREA NITROGEN,BUN 17.0 mg/dL (7.0-18.0); CARBON DIOXIDE,CO2 25.9 mmol/L (21.0-32.0); CHLORIDE,CL 107.0 mmol/L (98-107); CREATININE 0.8 mg/dL (0.6-1.0); EST CRCL DRUG DOSING (CG) 38.09 mL/min; GLUCOSE RANDOM 86.0 mg/dL (74-106); POTASSIUM,K 3.4 mmol/L (3.5-5.1); PROTEIN TOTAL,TP 6.0 g/dL (6.4-8.2); SODIUM,NA 142.0 mmol/L (136-145)
[2025-10-23 06:14] LABS: ESTIMATED GFR 72.0 mL/min (>60)
[2025-10-23] MEDS: Potassium Chloride 20 MEQ Tab.ER PO ONE ×2 (08:00→17:06)
[2025-10-23] MEDS: Acidophilus with Citrus Pectin/L.acidophilus Tab PO SCH (08:00)
[2025-10-23] MEDS: Nitrofurantoin Monohydrate/Macrocrystalline 100 MG Cap PO SCH (10:34)
[2025-10-24 06:58] LABS: BASOPHILS ABSOLUTE AUTO 0.02 K/uL (0.00-0.20); BASOPHILS PERCENT AUTO 0.3 % (0.0-1.0); EOSINOPHILS ABSOLUTE AUTO 0.36 K/uL (0.00-0.45); EOSINOPHILS PERCENT AUTO 6.1 % (0.0-6.0); IMMATURE GRAN ABSOLUTE AUTO 0.02 K/uL (0.00-0.05); IMMATURE GRAN PERCENT AUTO 0.3 % (0.0-0.4); LYMPHOCYTES ABSOLUTE AUTO 1.27 K/uL (1.00-4.80); LYMPHOCYTES PERCENT AUTO 21.4 % (24.0-44.0); MEAN PLATELET VOLUME 9.4 fL (9.4-12.3); MONOCYTES ABSOLUTE AUTO 0.79 K/uL (0.00-0.80); MONOCYTES PERCENT AUTO 13.3 % (0.0-8.0); NEUTROPHILS ABSOLUTE AUTO 3.47 K/uL (1.80-7.70); NEUTROPHILS PERCENT AUTO 58.6 % (41.0-71.0); NRBC ABSOLUTE 0.00 K/uL (0.00-0.02); NRBC PERCENT 0.0 /100WBC (0.0-0.2); PLATELET COUNT,PLT 249 K/uL (150-400); RED BLOOD CELL COUNT 3.67 M/uL (4.10-5.30); WHITE BLOOD CELL COUNT,WBC 5.93 K/uL (3.9-11.3)
[2025-10-24 07:28] LABS: A/G RATIO 0.8 (0.9-1.6); ALANINE AMINOTRANSFERASE,ALT 91.0 IU/L (14-63); ASPARTATE AMNIOTRANSFERASE,AST 63.0 IU/L (15-37); BILIRUBIN TOTAL 0.7 mg/dL (0.2-1.0); BLOOD UREA NITROGEN,BUN 21.0 mg/dL (7.0-18.0); CARBON DIOXIDE,CO2 28.3 mmol/L (21.0-32.0); CHLORIDE,CL 107.0 mmol/L (98-107); CREATININE 0.9 mg/dL (0.6-1.0); EST CRCL DRUG DOSING (CG) 33.86 mL/min; GLUCOSE RANDOM 81.0 mg/dL (74-106); POTASSIUM,K 4.0 mmol/L (3.5-5.1); PROTEIN TOTAL,TP 6.0 g/dL (6.4-8.2); SODIUM,NA 141.0 mmol/L (136-145)
[2025-10-24 07:32] LABS: ESTIMATED GFR 62.0 mL/min (>60)
[2025-10-25 05:50] LABS: BASOPHILS ABSOLUTE AUTO 0.04 K/uL (0.00-0.20); BASOPHILS PERCENT AUTO 0.5 % (0.0-1.0); EOSINOPHILS ABSOLUTE AUTO 0.41 K/uL (0.00-0.45); EOSINOPHILS PERCENT AUTO 5.0 % (0.0-6.0); IMMATURE GRAN ABSOLUTE AUTO 0.04 K/uL (0.00-0.05); IMMATURE GRAN PERCENT AUTO 0.5 % (0.0-0.4); LYMPHOCYTES ABSOLUTE AUTO 1.30 K/uL (1.00-4.80); LYMPHOCYTES PERCENT AUTO 15.9 % (24.0-44.0); MEAN PLATELET VOLUME 9.4 fL (9.4-12.3); MONOCYTES ABSOLUTE AUTO 0.86 K/uL (0.00-0.80); MONOCYTES PERCENT AUTO 10.5 % (0.0-8.0); NEUTROPHILS ABSOLUTE AUTO 5.52 K/uL (1.80-7.70); NEUTROPHILS PERCENT AUTO 67.6 % (41.0-71.0); NRBC ABSOLUTE 0.00 K/uL (0.00-0.02); NRBC PERCENT 0.0 /100WBC (0.0-0.2); PLATELET COUNT,PLT 255 K/uL (150-400); RED BLOOD CELL COUNT 4.26 M/uL (4.10-5.30); WHITE BLOOD CELL COUNT,WBC 8.17 K/uL (3.9-11.3)
[2025-10-25 06:20] LABS: A/G RATIO 0.9 (0.9-1.6); ALANINE AMINOTRANSFERASE,ALT 86.0 IU/L (14-63); ASPARTATE AMNIOTRANSFERASE,AST 50.0 IU/L (15-37); BILIRUBIN TOTAL 0.6 mg/dL (0.2-1.0); BLOOD UREA NITROGEN,BUN 22.0 mg/dL (7.0-18.0); CARBON DIOXIDE,CO2 27.5 mmol/L (21.0-32.0); CHLORIDE,CL 106.0 mmol/L (98-107); CREATININE 0.9 mg/dL (0.6-1.0); EST CRCL DRUG DOSING (CG) 33.86 mL/min; GLUCOSE RANDOM 100.0 mg/dL (74-106); POTASSIUM,K 3.5 mmol/L (3.5-5.1); PROTEIN TOTAL,TP 6.3 g/dL (6.4-8.2); SODIUM,NA 142.0 mmol/L (136-145)
[2025-10-25 07:10] LABS: ESTIMATED GFR 62.0 mL/min (>60)
[2025-10-25] MEDS: Furosemide 20 MG/2 ML VIAL IVPUSH SCH (08:52)
[2025-10-26 11:32] VITALS: BP 96/65; PULSE 84
== END 2025-10-26 11:30 | disposition home health service (06) | DRG 292 ==
LOC: MW.ED 09:46 → MW.MS 13:58
PROVIDERS: ADMIT Family Medicine; ATTEND Family Medicine
DX: I11.0 Hypertensive heart disease with heart failure (principal); I48.20 Chronic atrial fibrillation, unspecified; N39.0 Urinary tract infection, site not specified; R07.9 Chest pain, unspecified; Z66 Do not resuscitate; F32.A Depression, unspecified; E03.9 Hypothyroidism, unspecified; H54.7 Unspecified visual loss; E78.00 Pure hypercholesterolemia, unspecified; J45.909 Unspecified asthma, uncomplicated; K59.00 Constipation, unspecified; M19.90 Unspecified osteoarthritis, unspecified site; I50.9 Heart failure, unspecified; M35.3 Polymyalgia rheumatica; M54.9 Dorsalgia, unspecified; G89.29 Other chronic pain; M06.9 Rheumatoid arthritis, unspecified; E66.9 Obesity, unspecified; Z68.27 Body mass index [BMI] 27.0-27.9, adult; Z90.49 Acquired absence of other specified parts of digestive tract; Z98.890 Other specified postprocedural states; Z79.82 Long term (current) use of aspirin; Z98.49 Cataract extraction status, unspecified eye; Z79.899 Other long term (current) drug therapy
CPT/HCPCS: 36415; 71045; 71275; 80053; 81003; 83605; 83690; 83735; 83880; 84484 ×2; 85025; 85610; 85730; 87428; 96365; 99285; A9270; J3475; Q9967; 93005; 93306; 97110-GP; 97161-GP; 99284; J1650; J1938